=== PATIENT | female | born 1975 | race Caucasian/White ===

== ENCOUNTER 2016-06-02 08:31 | Emergency (ER) | payer BC ==
[2016-06-02 08:47] VITALS: BP 108/77
--- NOTE | 2016-06-02 09:19 | UC ---
Carroll Lou Adam, scribed for Pascual Cha MD on 06/02/16 at 0858 . Skin Complaint HPI - HPI Summary HPI Summary: Pt is a 40 year old female presenting with a rash and apparent allergic rxn. She states that the rash developed on her chest 2 nights ago. Since then it has spread down to her abdomen and lower extremities. She reports discomfort and some itchiness associated with the rash. She also presents with facial swelling and redness. She states that Benadryl has been alleviating the symptoms. She denies fever, difficulty swallowing, and tongue/lip swelling. She denies eating anything unusual or using any new products. Pt states that her mother has a Hx of severe allergic reactions with anaphylaxis. Surgical Hx of appy. No other PMHx. No tobacco/alcohol use. - History of Current Complaint Chief Complaint: UCRash Time Seen by Provider: 06/02/16 08:48 Stated Complaint: RASH COMPLAINT Hx Obtained From: Patient Hx Last Menstrual Period: 05/22/16 Onset/Duration: Gradual Onset, Lasting Days, Still Present Timing: Constant Onset Severity: Mild Current Severity: Moderate Location: Generalized - Face, chest, abdomen, legs Character: Hives, Redness Aggravating: Nothing Alleviating: Antihistamines - Benadryl Associated Signs & Symptoms: Positive: Rash - Allergy/Home Medications Allergies/Adverse Reactions: Allergies Allergy/AdvReac Type Severity Reaction Status Date / Time Magnesium Allergy Hives Verified 01/26/16 00:19 Review of Systems Constitutional: Negative Skin: Rash - Chest, abdomen, legs ENT: Negative Musculoskeletal: Edema - Face All Other Systems Reviewed And Are Negative: Yes PMH/Surg Hx/FS Hx/Imm Hx Endocrine History Of: Denies: Diabetes Cardiovascular History Of: Denies: Hypertension GI/ History Of: Denies: Renal Disease - Surgical History Surgical History: Yes - Appendectomy January 26 2016 Surgery Procedure, Year, and Place: 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 appy jan 2016 - Family History Known Family History: Positive: Hypertension - father, Diabetes, Other - Epilepsy (sister) Negative: Cardiac Disease - Social History Occupation: Employed Full-time Lives: With Family - Alcohol Use: None Substance Use Type: None Smoking Status (MU): Never Smoked Tobacco - Immunization History Most Recent Influenza Vaccination: 2014 Most Recent Tetanus Shot: 2007 Most Recent Pneumonia Vaccination: n/a Physical Exam Triage Information Reviewed: Yes Vital Signs: Initial Vital Signs Temp 98.0 F 06/02/16 08:39 Pulse 90 06/02/16 08:39 Resp 16 06/02/16 08:39 BP 108/77 06/02/16 08:39 Pulse Ox 98 06/02/16 08:39 Course/Dx - Course Course Of Treatment: Pt is a 40 year old female presenting with a rash and apparent allergic rxn. She states that the rash developed on her chest 2 nights ago. Since then it has spread down to her abdomen and lower extremities. She reports discomfort and some itchiness associated with the rash. She also presents with facial swelling and redness. She states that Benadryl has been alleviating the symptoms. She denies fever, difficulty swallowing, and tongue/ lip swelling. She denies eating anything unusual or using any new products. Patient seems to have an allergic reaction to an unknown etiology. Patient denies a lip swelling, tongue swelling or feeling like the throat is going to close. She will given a prescription for Prednisone, Benadryl and Pepcid. At this time we will control the symptoms. She will be refer to [facility] and PMD. She was instructed to return to the or go to the ED if she develops any of the above symptoms. She understands and agrees. She is hemodynamically stable. She is alert and oriented. - Differential Diagnoses - Skin Complaint Differential Diagnoses: Allergic Reaction, Cellulitis, Urticaria - Diagnoses Provider Diagnoses: Allergic reaction Discharge - Discharge Plan Condition: Stable Disposition: HOME Prescriptions: Epinephrine [Epipen 2-Quentin] 0.3 mg IM ONCE #1 inj Famotidine TAB* [Pepcid TAB*] 20 mg PO BID #10 tab diPHENhydraMINE PO* [Benadryl PO*] 25 mg PO TID PRN #30 cap PRN Reason: Allergy Symptoms predniSONE TAB* [Deltasone TAB*] 40 mg PO DAILY #10 tab Patient Education Materials: General Allergic Reaction (ED) Referrals: Jamey Sutton MD [Medical Doctor] - Additional Instructions: Follow up with Dr. Sutton ([facility]). The documentation as recorded by the Carroll garcia Adam accurately reflects the service I personally performed and the decisions made by Semaj reed Walter, MD.
== END 2016-06-02 09:19 | disposition home or self-care (01) ==
LOC: UCEAST 08:31
DX: T78.40XA Allergy, unspecified, initial encounter (principal); X58.XXXA Exposure to other specified factors, initial encounter
CPT/HCPCS: 99212; G0463

== ENCOUNTER 2016-06-08 09:07 | Emergency (ER) | payer BC ==
[2016-06-08 09:19] VITALS: BP 103/78
[2016-06-08] MEDS ORDERED: Ondansetron ODT TAB* 4 MG PO ONE (10:15)
[2016-06-08] MEDS ORDERED: Famotidine TAB* 20 MG PO ONE (10:15)
--- NOTE | 2016-06-08 10:21 | UC ---
UC General HPI - HPI Summary HPI Summary: Patient has had 2 days of Nausea and diarrhea, chills and hot. She is tolerating PO fluids and food. - History of Current Complaint Chief Complaint: UCGI Stated Complaint: ABDOMINAL COMPLAINT Time Seen by Provider: 06/08/16 10:14 Hx Obtained From: Patient Onset/Duration: Sudden Onset, Lasting Days Onset Severity: Mild Current Severity: Moderate Pain Intensity: 6 Associated Signs & Symptoms: Positive: Diarrhea, Nausea - Allergy/Home Medications Allergies/Adverse Reactions: Allergies Allergy/AdvReac Type Severity Reaction Status Date / Time Magnesium Allergy Hives Verified 01/26/16 00:19 PMH/Surg Hx/FS Hx/Imm Hx Previously Healthy: Yes Endocrine History Of: Denies: Diabetes Cardiovascular History Of: Denies: Hypertension GI/ History Of: Denies: Renal Disease - Surgical History Surgical History: Yes Surgery Procedure, Year, and Place: 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 appy jan 2016 - Family History Known Family History: Positive: Hypertension - father, Diabetes, Other - Epilepsy (sister) Negative: Cardiac Disease - Social History Alcohol Use: None Substance Use Type: None Smoking Status (MU): Never Smoked Tobacco - Immunization History Most Recent Influenza Vaccination: 2014 Most Recent Tetanus Shot: 2007 Most Recent Pneumonia Vaccination: n/a Review of Systems Constitutional: Fever, Chills, Fatigue Skin: Negative Eyes: Negative ENT: Negative Respiratory: Negative Cardiovascular: Negative Gastrointestinal: Abdominal Pain - feels crampy and diffuse "rolling", Diarrhea Genitourinary: Negative Motor: Negative Neurovascular: Negative Musculoskeletal: Negative Neurological: Negative Psychological: Negative All Other Systems Reviewed And Are Negative: Yes Physical Exam Triage Information Reviewed: Yes Appearance: No Pain Distress, Ill-Appearing Vital Signs: Initial Vital Signs Temp 96.8 F 06/08/16 09:13 Pulse 106 06/08/16 09:13 Resp 18 06/08/16 09:13 BP 103/78 06/08/16 09:13 Pulse Ox 96 06/08/16 09:13 Vital Signs Reviewed: Yes Eye Exam: Normal ENT Exam: Normal ENT: Positive: Hearing grossly normal, Pharyngeal erythema, TMs normal Dental Exam: Normal Neck exam: Normal Neck: Positive: Supple, Nontender, No Lymphadenopathy Respiratory Exam: Normal Respiratory: Positive: Chest non-tender, Lungs clear, Normal breath sounds Cardiovascular Exam: Normal Cardiovascular: Positive: RRR, No Murmur, Pulses Normal Abdominal Exam: Normal Abdomen Description: Positive: Nontender, No Organomegaly, Soft Bowel Sounds: Positive: Present Musculoskeletal Exam: Normal Musculoskeletal: Positive: Strength Intact, ROM Intact, No Edema Neurological Exam: Normal Neurological: Positive: Alert, Muscle Tone Normal Psychological Exam: Normal Skin Exam: Normal Skin: Positive: rashes Course/Dx - Course Course Of Treatment: hx obtained, exam performed, flu swab obtained. meds given. - Differential Dx - Multi-Symptom Provider Diagnoses: nausea. vomiting. myalgia Discharge - Discharge Plan Condition: Stable Disposition: HOME Patient Education Materials: Acute Nausea and Vomiting (ED) Additional Instructions: Your flu was negative. I recommend getting plenty of rest and keeping your diet bland. COntinue with increased fluid intake as tolerated. I have prescribed zofran and famotidine to help with the nausea.
== END 2016-06-08 10:42 | disposition home or self-care (01) ==
LOC: UCEAST 09:07
DX: R11.2 Nausea with vomiting, unspecified (principal); R19.7 Diarrhea, unspecified
CPT/HCPCS: 87502; 99212; A9270-GY; G0463

== ENCOUNTER 2016-10-13 19:22 | Emergency (ER) | payer BC ==
[2016-10-13 20:38] VITALS: BP 127/72
[2016-10-13] MEDS ORDERED: Cephalexin CAP* 500 MG PO ONE ×2 (21:40→21:45)
--- NOTE | 2016-10-13 22:05 | RAD ---
INDICATION: Left foot injury. TECHNIQUE: 3 views of the left foot were obtained. FINDINGS: There is soft tissue swelling present dorsal to the metatarsal bones and adjacent to the medial first metatarsal bone. No fracture is seen. Joint spaces appear maintained. No erosive, hypertrophic changes or calcifications are seen. IMPRESSION: SOFT TISSUE SWELLING.
--- NOTE | 2016-10-15 12:35 | UC ---
Jonnathan Lou Benjamin, scribed for Arline Hodges MD on 10/13/16 at 2140 . Lower Extremity/Ankle HPI - HPI Summary HPI Summary: 40yo female presents with a red swollen lump on top of the left foot. Lump is painful to touch. Pt first noticed the lump last Tuesday (10/09/16), which pt thought was from prolonged walking. However, lump has been getting bigger and more painful throughout the week so pt came into have it checked out. Pt had hx of cellulitis on her elbow before and states that her current lump feels similar. No other rashes anywhere else. Denies any recent tick bites. No hx of gout or arthritis or autoimmune disorder. - History of Current Complaint Chief Complaint: UCLowerExtremity Stated Complaint: SORE ON FOOT Time Seen by Provider: 10/13/16 21:27 Hx Obtained From: Patient Hx Last Menstrual Period: 05/22/16 ?: No Onset/Duration: Gradual Onset, Lasting Days - since last Tuesday (10/09/16) Severity Initially: Mild Severity Currently: Moderate Pain Intensity: 2 Pain Scale Used: 0-10 Numeric Aggravating Factor(s): Standing, Other - palpation Alleviating Factor(s): Nothing Able to Bear Weight: Yes - Risk Factors Gout Risk Factors: Negative DVT Risk Factors: Negative Septic Arthritis Risk Factor: Negative - Allergies/Home Medications Allergies/Adverse Reactions: Allergies Allergy/AdvReac Type Severity Reaction Status Date / Time Magnesium Allergy Hives Verified 10/13/16 20:37 PMH/Surg Hx/FS Hx/Imm Hx Previously Healthy: No - cellulitis on elbow - Surgical History Surgical History: Yes Surgery Procedure, Year, and Place: 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 appy jan 2016 - Family History Known Family History: Positive: Hypertension - father, Diabetes, Other - Epilepsy (sister) Negative: Cardiac Disease - Social History Lives: With Family Alcohol Use: None Substance Use Type: None Smoking Status (MU): Never Smoked Tobacco - Immunization History Most Recent Influenza Vaccination: 2014 Most Recent Tetanus Shot: 2007 Most Recent Pneumonia Vaccination: n/a Review of Systems Constitutional: Negative Skin: Other - red, swollen lump on top of the left foot that is painful to touch Eyes: Negative ENT: Negative Respiratory: Negative Cardiovascular: Negative Gastrointestinal: Negative Genitourinary: Negative Motor: Negative Neurovascular: Negative Musculoskeletal: Negative Neurological: Negative Psychological: Negative All Other Systems Reviewed And Are Negative: Yes Physical Exam Triage Information Reviewed: Yes Appearance: Well-Appearing, Well-Nourished, Pain Distress - mild Vital Signs: Initial Vital Signs Temp 98.7 F 10/13/16 20:37 Pulse 81 10/13/16 20:37 Resp 16 10/13/16 20:37 BP 127/72 10/13/16 20:37 Pulse Ox 100 10/13/16 20:37 Vital Signs Reviewed: Yes Eyes: Positive: Conjunctiva Clear ENT: Positive: Hearing grossly normal. Negative: Muffled/hoarse voice Neck: Positive: Supple, Nontender, No Lymphadenopathy Respiratory: Positive: Lungs clear, Normal breath sounds, No respiratory distress Cardiovascular: Positive: RRR, No Murmur, Pulses Normal Abdomen Description: Positive: Nontender, No Organomegaly, Soft. Negative: Distended, Guarding, McBurney's Point Tenderness, Peritoneal Signs Bowel Sounds: Positive: Present Musculoskeletal: Positive: Strength Intact, ROM Intact Neurological: Positive: Alert, Muscle Tone Normal Psychological: Positive: Age Appropriate Behavior Skin: Positive: Other - 3cm raised, red, and exquisitely tender area on left foot over the mid-first metatarsal. First MTP and great toe not red. No red streak. Full ROM. Lower Extremity Course/Dx - Course Course Of Treatment: Allergies noted. 40yo female presents with a red, swollen lump on top of the left foot that has been progressively worsening since . Pt denies any tick bites or rashes anywhere else. PMHx includes cellulitis on elbow before but otherwise no significant Hx. Pt's left foot has an inflamed area. Pt will be discharged with instructions for gout and cellulitis and she will be treated with Abx and NSAIDs, which will also cover possible cellulitis and gout. She is also advised to keep Lyme disease in mind and if it does not resolve to seek definite medical attention and continue antibiotics. - Differential Dx/Diagnosis Differential Diagnosis/HQI/PQRI: Cellulitis, Gout, Sprain, Strain, Other - Lyme disease Provider Diagnoses: Cellutis vs. Gout Discharge - Discharge Plan Condition: Stable Disposition: HOME Prescriptions: Cephalexin CAP* [Keflex 500 CAP*] 500 mg PO QID #40 cap Indomethacin CAP* [Indocin CAP*] 50 mg PO TID #21 cap Patient Education Materials: Cellulitis (ED), Gout (ED) Referrals: [facility] [place] [facility]FERR[facility] [Outside] - 2 Days Non Staff,Doctor [Primary Care Provider] - Additional Instructions: We gave a copy of your xray report to you. It shows swelling, but no fracture, no other diagnosis. We are treating for cellulitis and gout. And we have advised you to keep in mind that this could be Lyme disease. We are treating with cephalexin. Your first dose was at 10:00pm tonight. Finish all of the antibiotic. Have definite follow up if this does not improve or recurs. We also advise that you call to get established with a primary care provider. RETURN TO URGENT CARE FOR ANY NEW OR WORSENING SYMPTOMS The documentation as recorded by the Jonnathan garcia Benjamin accurately reflects the service I personally performed and the decisions made by me, Arline Hodges MD.
== END 2016-10-13 22:37 | disposition home or self-care (01) ==
LOC: UCEAST 19:22
DX: R22.42 Localized swelling, mass and lump, left lower limb (principal)
CPT/HCPCS: 99213; A9270-GY; G0463

== ENCOUNTER 2017-01-19 10:22 | Emergency (ER) | payer BC ==
[2017-01-19 12:31] VITALS: BP 110/76
--- NOTE | 2017-01-19 13:58 | RAD ---
INDICATION: Cough and fever. COMPARISON: There are no prior studies available for comparison. TECHNIQUE: Dual-energy PA and lateral views of the chest were obtained. FINDINGS: The heart is within normal limits in size. Mediastinal and hilar contours appear within normal limits. There is a small infiltrate at the right lung base. The lungs are otherwise clear. No pleural effusion is seen. There is a pectus excavatum deformity. There appears to be interposition of the hepatic flexure between the liver and right hemidiaphragm. IMPRESSION: SMALL RIGHT BASILAR INFILTRATE.
--- NOTE | 2017-01-19 13:58 | UC ---
UC General HPI - HPI Summary HPI Summary: Patient presents with complaints of chills, fatigue and associated cough. She states that the symptoms began three days ago, and became much worse yesterday afternoon. She denies any sputum production, but reports general malaise. She denies abdominal pain, nausea, vomiting associated with her symptoms today. - History of Current Complaint Chief Complaint: UCGeneralIllness Stated Complaint: FEVER COUGH HEADACHE Time Seen by Provider: 01/19/17 13:18 Hx Obtained From: Patient Hx Last Menstrual Period: 12/15/16 Onset/Duration: Gradual Onset, Lasting Days Timing: Constant Onset Severity: Mild Current Severity: Moderate - Allergy/Home Medications Allergies/Adverse Reactions: Allergies Allergy/AdvReac Type Severity Reaction Status Date / Time Magnesium Allergy Hives Verified 01/19/17 12:27 PMH/Surg Hx/FS Hx/Imm Hx Previously Healthy: Yes Other Cancer History: breast cancer - Surgical History Surgical History: Yes Surgery Procedure, Year, and Place: 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 appy jan 2016 - Family History Known Family History: Positive: Hypertension - father, Diabetes, Other - Epilepsy (sister) Negative: Cardiac Disease - Social History Occupation: Employed Full-time Lives: Alone Alcohol Use: None Substance Use Type: None Smoking Status (MU): Never Smoked Tobacco - Immunization History Most Recent Influenza Vaccination: 2014 Most Recent Tetanus Shot: 2007 Most Recent Pneumonia Vaccination: n/a Review of Systems Constitutional: Fever, Fatigue Skin: Negative Eyes: Negative ENT: Negative Respiratory: Cough Cardiovascular: Negative Gastrointestinal: Negative Genitourinary: Negative All Other Systems Reviewed And Are Negative: Yes Physical Exam Triage Information Reviewed: Yes Appearance: Ill-Appearing Vital Signs: Initial Vital Signs Temp 98.5 F 01/19/17 12:27 Pulse 105 01/19/17 12:27 Resp 16 01/19/17 12:27 BP 110/76 01/19/17 12:27 Pulse Ox 100 01/19/17 12:27 Vital Signs Reviewed: Yes Eye Exam: Normal ENT Exam: Normal Neck exam: Normal Respiratory: Positive: Other: Cardiovascular Exam: Normal Abdominal Exam: Normal Skin Exam: Normal Course/Dx - Course Course Of Treatment: Patient presents with three day onset fever, cough with generalized fatiuge and malaise. Influenza was negative. Chest xray revealed RLL infiltrate. Patient treated with doxycycline 100 mg by mouth twice daily x 10 days. I discussed with the patient if her symtpoms do not improve in 2 days to follw up and be re-evalauted. - Differential Dx - Multi-Symptom Differential Diagnoses: Other - Pneumonia Provider Diagnoses: Pneumonia Discharge - Discharge Plan Condition: Stable Disposition: HOME Prescriptions: Doxycycline Hyclate [Doxycycline Hyclate Dr] 100 mg PO BID #20 tab Fluconazole 100 MG TAB* [Diflucan 100 MG TAB*] 100 mg PO DAILY #1 tab Patient Education Materials: Pneumonia (ED) Forms: *Work Release Referrals: Hayden Fuentes DO [Primary Care Provider] - Additional Instructions: If your symptoms do not improve in 48 hours you will need to be rechecked by you PCP or come back to the clinic.
== END 2017-01-19 14:09 | disposition home or self-care (01) ==
LOC: UCEAST 10:22
DX: J18.9 Pneumonia, unspecified organism (principal); Z80.3 Family history of malignant neoplasm of breast
CPT/HCPCS: 71020; 87502; 99212; G0463

== ENCOUNTER 2017-07-04 08:31 | Inpatient (IN) | payer BC ==
[2017-07-04] MEDS ORDERED: Morphine INJ* 4 MG/ML 1 ML SYRINGE (NEW SYRINGE VERSION) IV ONE (09:44)
[2017-07-04] MEDS ORDERED: Ondansetron INJ* 2 MG/ML VIAL IV ONE (09:44)
[2017-07-04] MEDS ORDERED: NS 0.9% 1000 ML* 1,000 ML IV ONE (09:44)
[2017-07-04 10:21] LABS: ABS Basophils 0 10^3/ul (0-0.2); ABS Eosinophils 0 10^3/ul (0-0.6); ABS Lymphocytes 0.8 10^3/ul (1.0-4.8); ABS Monocytes 0.9 10^3/ul (0-0.8); ABS Neutrophils 8.9 10^3/ul (1.5-7.7); ABS Nucleated RBC 0 10^3/ul; Eosinophil % 0.1 % (0-6); Hematocrit 42 % (35-47); Hemoglobin 14.3 g/dl (12.0-16.0); Lymphocyte % 7.5 % (25-47); Mean Corpuscular HGB Conc 34 g/dl (31-36); Mean Corpuscular Hemoglobin 28 pg (27-31); Mean Corpuscular Volume 83 fL (80-97); Mean Platelet Volume 9 um3 (7.4-10.4); Nucleated Red Blood Cells % 0.2; Platelet Count 266 10^3/ul (150-450); Red Blood Count 5.06 10^6/ul (4.0-5.4); Red Cell Distribution Width 13 % (10.5-15); White Blood Count 10.7 10^3/ul (3.5-10.8)
[2017-07-04 10:38] LABS: EGFR Non-African American 83.5 (>60)
[2017-07-04 11:33] LABS: Urine Appearance Clear; Urine Blood Negative (Negative); Urine Color Yellow; Urine Ketones 1+ (Negative); Urine Protein Negative (Negative); Urine Specific Gravity 1.025 (1.010-1.030); Urine Urobilinogen Negative (Negative)
--- NOTE | 2017-07-04 11:43 | RAD ---
INDICATION: Pelvic pain dysmenorrhea x6 months COMPARISON: Pelvic ultrasound March 07, 2017 TECHNIQUE: Real-time transabdominal and transvaginal ultrasound examination of the female pelvis including grayscale and Doppler color flow imaging. FINDINGS: Uterus: The uterus measures 8.2 x 4.3 x 5.4 cm. There is mild heterogeneity of the myometrium especially along the mid-level posterior myometrium in this same area there is an ill-defined area of hypoechogenicity (depicted best on the cine image 38 of 169) measuring 1 cm] represent a uterine fibroid. The endometrial stripe is smooth and uniform measuring 6 mm in thickness. Several subcentimeter anechoic and avascular cyst at the lower uterine segment and cervix are most consistent with benign nabothian cysts. Ovaries: The right and left ovary measure 3.4 x 2.4 x 2.4 cm and 2.6 x 1.5 x 2.2 cm, respectively. Normal arterial and venous waveforms are identified. Appearance is within normal limits for the patient's age. There is no free fluid in the cul-de-sac. IMPRESSION: There is vague heterogeneity of the myometrium particularly at the posterior mid level myometrium. This could be an ill-defined uterine fibroid or possibly adenomyosis. If this correlates to the patient's clinical presentation, more certain characterization can be acquired with contrast-enhanced MRI of the pelvis on a nonemergent basis. Otherwise the pelvic ultrasound is normal and age-appropriate.
[2017-07-04] MEDS ORDERED: Iohexol 300* (CONTRAST) 10 ML SDV IV ONE (12:06)
--- NOTE | 2017-07-04 12:18 | ED ---
Abdominal Pain/Female - HPI Summary HPI Summary: Pt here w/ ab pain x past week. Feels this most in lower central pelvic/abdomen region. Has been experiencing pain similar to this before each period over the past few months. Today is worse than it's ever been. She's a couple of days out from menstruating today. Moved here from [place] in November 2015 - had annual well woman exam prior to leaving w/ normal pap. She also had a 1 x "Rt ovary pain" and u/s per pt was normal (performed through [facility]). She admits mom had hysterectomy in 's d/t abnormal cells and endometriosis. Pt denies abnormal vaginal bleeding however admits periods have gotten heavier over the past few months. She did see her PCP for similar lower pelvic symptoms which started in March. She thought she had a urinary tract infection and a UA was obtained. This revealed minimal bacteria findings which were initially thought to be contamination however given her symptoms, provider agreed to prescribe a course of ciprofloxacin. Patient admits she was only able to take 4 days of this as she went on vacation and forgot the rest of her prescription. She was feeling better however symptoms returned the following month again just before her period. She called her PCP again who wrote for another antibiotic for possible UTI. Patient reports this was a 3 day course only. She started to feel better again until symptoms started this past week ( believes she tool cipro again). No juan h/o constipation or bowel issues. No h/ o UTI/stones otherwise. Had some chills last night and 1 time episode of nausea w/ vomiting and diarrhea while at work yesterday - went home and slept after - felt wiped out. Pertinent hx, had appendectomy in 2015 and has had residual tenderness around umbilicus since. Last ate at 18:30 PM last night and drank some water prior to arrival. 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 - Hx Last Menstrual Period: 12/15/16 Pain Intensity: 9 Allergies/Adverse Reactions: Allergies Allergy/AdvReac Type Severity Reaction Status Date / Time magnesium Allergy Hives Verified 07/04/17 08:40 Home Medications: Home Medications NK [No Home Medications Reported] 07/04/17 [History Confirmed 07/04/17] PMH/Surg Hx/FS Hx/Imm Hx Previously Healthy: Yes Endocrine/Hematology History: Denies: Hx Anticoagulant Therapy, Hx Blood Disorders, Hx Diabetes, Hx Thyroid Disease, Hx Anemia, Autoimmune Disease Cardiovascular History: Denies: Hx Hypertension GI History: Reports: Other GI Disorders - appendicitis in 2015 Denies: Hx Crohn's Disease, Hx Diverticulosis, Hx Gall Bladder Disease, Hx Gastroesophageal Reflux Disease, Hx Gastrointestinal Bleed, Hx Hiatal Hernia, Hx Irritable Bowel, Hx Obstructive Bowel, Hx Ulcer History: Denies: Hx Renal Disease Musculoskeletal History: Comment Only: Hx Scoliosis - pt said her spine "is crooked" Sensory History: Reports: Hx Contacts or Glasses Denies: Hx Hearing Aid Opthamlomology History: Reports: Hx Contacts or Glasses - Cancer History Cancer Type, Location and Year: 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 appy jan 2016 Hx Anesthesia Reactions: No Infectious Disease History: No Infectious Disease History: Reports: Hx Shingles - 3yrs ago Denies: History Other Infectious Disease, Traveled Outside the [place] in Last 30 Days - Family History Known Family History: Positive: Hypertension - father, Diabetes, Other - Epilepsy (sister) Negative: Cardiac Disease - Social History Occupation: Employed Full-time Lives: With Family Alcohol Use: None Hx Substance Use: No Substance Use Type: Reports: None Hx Tobacco Use: No Smoking Status (MU): Never Smoked Tobacco Review of Systems Positive: Chills, Fatigue Eyes: Negative ENT: Negative Cardiovascular: Negative Respiratory: Negative Positive: Abdominal Pain, Vomiting, Diarrhea, Nausea Positive: see HPI Musculoskeletal: Negative Skin: Negative Neurological: Negative Psychological: Normal All Other Systems Reviewed And Are Negative: Yes Physical Exam Triage Information Reviewed: Yes Vital Signs On Initial Exam: Initial Vitals Temp Pulse Resp BP Pulse Ox 98.7 F 126 16 136/73 99 07/04/17 08:37 07/04/17 08:37 07/04/17 08:37 07/04/17 08:37 07/04/17 08:37 Vital Signs Reviewed: Yes Appearance: Positive: Well-Appearing, Well-Nourished, Pain Distress Skin: Positive: Warm, Skin Color Reflects Adequate Perfusion, Dry Head/Face: Positive: Normal Head/Face Inspection Eyes: Positive: Normal, EOMI, Conjunctiva Clear - anicteric sclera ENT: Positive: Normal ENT inspection, Hearing grossly normal, Pharynx normal Neck: Positive: Supple, Nontender Respiratory/Lung Sounds: Positive: Clear to Auscultation, Breath Sounds Present. Negative: Rales, Rhonchi, Wheezes Cardiovascular: Positive: Normal, RRR, S1, S2 Abdomen Description: Positive: Nontender, Soft, Guarding, Other: - tender over entire ab - worse in lower regions and tender w/ light touch over central prepupital region - no rebounding. Negative: CVA Tenderness (R), CVA Tenderness (L) Bowel Sounds: Positive: Present Pelvic Exam: Positive: external exam normal, speculum exam normal, no cerv. motion tender, discharge - milky white, other - midline tenderness. Negative: active bleeding, cervicitis, lesions Musculoskeletal: Positive: Normal, Strength/ROM Intact Neurological: Positive: Normal, Sensory/Motor Intact, Alert, Oriented to Person Place, Time, CN Intact II-III Psychiatric: Positive: Normal Diagnostics - Vital Signs Vital Signs Temp Pulse Resp BP Pulse Ox 07/04/17 11:30 89 103/77 100 07/04/17 11:29 85 99 07/04/17 11:27 103/67 07/04/17 10:52 92 99 07/04/17 10:16 16 07/04/17 10:00 86 95 07/04/17 09:30 95 106/75 96 07/04/17 09:00 87 101/68 94 07/04/17 08:55 89 94 07/04/17 08:54 100/69 07/04/17 08:37 98.7 F 126 16 136/73 99 - Laboratory Lab Results: Lab Results 07/04/17 07/04/17 07/04/17 Range/Units 10:02 10:02 10:02 WBC 10.7 (3.5-10.8) 10^3/ul RBC 5.06 (4.0-5.4) 10^6/ul Hgb 14.3 (12.0-16.0) g/dl Hct 42 (35-47) % MCV 83 (80-97) fL MCH 28 (27-31) pg MCHC 34 (31-36) g/dl RDW 13 (10.5-15) % Plt Count 266 (150-450) 10^3/ul MPV 9 (7.4-10.4) um3 Neut % (Auto) 84.0 H (38-83) % Lymph % (Auto) 7.5 L (25-47) % [place] % (Auto) 8.0 H (0-7) % Eos % (Auto) 0.1 (0-6) % Baso % (Auto) 0.4 (0-2) % Absolute Neuts (auto) 8.9 H (1.5-7.7) 10^3/ul Absolute Lymphs (auto) 0.8 L (1.0-4.8) 10^3/ul Absolute Monos (auto) 0.9 H (0-0.8) 10^3/ul Absolute Eos (auto) 0 (0-0.6) 10^3/ul Absolute Basos (auto) 0 (0-0.2) 10^3/ul Absolute Nucleated RBC 0 10^3/ul Nucleated RBC % 0.2 Sodium 134 (133-145) mmol/L Potassium 4.1 (3.5-5.0) mmol/L Chloride 103 (101-111) mmol/L Carbon Dioxide 26 (22-32) mmol/L Anion Gap 5 (2-11) mmol/L BUN 10 (6-24) mg/dL Creatinine 0.76 (0.51-0.95) mg/dL Est GFR ( Amer) 107.3 (>60) Est GFR (Non-Af Amer) 83.5 (>60) BUN/Creatinine Ratio 13.2 (8-20) Glucose 121 H (70-100) mg/dL Lactic Acid 0.8 (0.5-2.0) mmol/L Calcium 8.9 (8.6-10.3) mg/dL Magnesium 2.0 (1.9-2.7) mg/dL Total Bilirubin 0.70 (0.2-1.0) mg/dL AST 14 (13-39) U/L ALT 13 (7-52) U/L Alkaline Phosphatase 84 (34-104) U/L C-Reactive Protein 72.02 H (< 5.00) mg/L Total Protein 6.9 (6.4-8.9) g/dL Albumin 3.9 (3.2-5.2) g/dL Globulin 3.0 (2-4) g/dL Albumin/Globulin Ratio 1.3 (1-3) Lipase < 10 L (11.0-82.0) U/L Beta HCG, Quant < 0.60 mIU/mL Urine Color Urine Appearance Urine pH (5-9) Ur Specific [place] (1.010-1.030) Urine Protein (Negative) Urine Ketones (Negative) Urine Blood (Negative) Urine Nitrate (Negative) Urine Bilirubin (Negative) Urine Urobilinogen (Negative) Ur Leukocyte Esterase (Negative) Urine Glucose (Negative) 07/04/17 Range/Units 10:56 WBC (3.5-10.8) 10^3/ul RBC (4.0-5.4) 10^6/ul Hgb (12.0-16.0) g/dl Hct (35-47) % MCV (80-97) fL MCH (27-31) pg MCHC (31-36) g/dl RDW (10.5-15) % Plt Count (150-450) 10^3/ul MPV (7.4-10.4) um3 Neut % (Auto) (38-83) % Lymph % (Auto) (25-47) % [place] % (Auto) (0-7) % Eos % (Auto) (0-6) % Baso % (Auto) (0-2) % Absolute Neuts (auto) (1.5-7.7) 10^3/ul Absolute Lymphs (auto) (1.0-4.8) 10^3/ul Absolute Monos (auto) (0-0.8) 10^3/ul Absolute Eos (auto) (0-0.6) 10^3/ul Absolute Basos (auto) (0-0.2) 10^3/ul Absolute Nucleated RBC 10^3/ul Nucleated RBC % Sodium (133-145) mmol/L Potassium (3.5-5.0) mmol/L Chloride (101-111) mmol/L Carbon Dioxide (22-32) mmol/L Anion Gap (2-11) mmol/L BUN (6-24) mg/dL Creatinine (0.51-0.95) mg/dL Est GFR ( Amer) (>60) Est GFR (Non-Af Amer) (>60) BUN/Creatinine Ratio (8-20) Glucose (70-100) mg/dL Lactic Acid (0.5-2.0) mmol/L Calcium (8.6-10.3) mg/dL Magnesium (1.9-2.7) mg/dL Total Bilirubin (0.2-1.0) mg/dL AST (13-39) U/L ALT (7-52) U/L Alkaline Phosphatase (34-104) U/L C-Reactive Protein (< 5.00) mg/L Total Protein (6.4-8.9) g/dL Albumin (3.2-5.2) g/dL Globulin (2-4) g/dL Albumin/Globulin Ratio (1-3) Lipase (11.0-82.0) U/L Beta HCG, Quant mIU/mL Urine Color Yellow Urine Appearance Clear Urine pH 6.0 (5-9) Ur Specific [place] 1.025 (1.010-1.030) Urine Protein Negative (Negative) Urine Ketones 1+ H (Negative) Urine Blood Negative (Negative) Urine Nitrate Negative (Negative) Urine Bilirubin Negative (Negative) Urine Urobilinogen Negative (Negative) Ur Leukocyte Esterase Negative (Negative) Urine Glucose Negative (Negative) Result Diagrams: 07/04/17 10:02 07/04/17 10:02 Lab Statement: Any lab studies that have been ordered have been reviewed, and results considered in the medical decision making process. Re-Evaluation - Re-Evaluation First Eval Change: Unchanged - pain same s/p morphine Second Eval Change: Improved - s/p dilaudid Abdominal Pain Fem Course/Dx - Course Course Of Treatment: Pt presents w/ ab pain x 8 days but on/off past few months. Initially concerned for UTI sx outpt and tx'd w/ a couple of short courses of cipro w/ intermittent relief each time. Was also discussed that this appeared to be cyclical around menstruation and periods have been heavier. Labs , TVUS and CT ordered. TVUS reveals "vague heterogeneity of the myometrium particularly at the posterior mid level myometrium. This could be an ill- defined uterine fibroid or possibly adenomyosis. If this correlates to the patient's critical presentation, more certain characterization can be required with contrast enhanced MRI of the pelvis on a nonemergent basis. Otherwise pelvic ultrasound is normal and age appropriate.". CT abdomen and pelvis with contrast reveals "sigmoid region enteric inflammatory change with organizing diverticular abscess." This abscess is measured at 4 cm. Spoke with surgical PA. He will consult with his attending to decide if patient is a surgical admission/observation versus hospital admission/observation. IV antibiotics were started. Patient's pain is controlled at this time. Lengthy conversation with pt and about all findings and appropriate follow-up care for abnormal uterine findings. Provided with TVUS report and advised obtaining a copy of CD disc prior to leaving the hospital for comparison of previous ultrasound obtained by primary care doctor through [facility]. Explained patient may benefit from MRI as mentioned by radiologist in report. UPDATE: Gen surg team will consult if pt is admitted. Hospitalist, Dr. Guerrier, aware. 2nd lactic is WNL. - Diagnoses Provider Diagnoses: Colonic diverticular abscess, Abnormal ultrasound of uterus Discharge - Discharge Plan Condition: Stable Disposition: ADMITTED TO [facility]
[2017-07-04] MEDS ORDERED: Metoclopramide IV* 5 MG/ML 2 ML VIAL IV ONE (12:31)
[2017-07-04] MEDS ORDERED: HYDROmorphone INJ* 2 MG/ML CARPUJECT SYRINGE IV SLOW PU ONE (12:41)
--- NOTE | 2017-07-04 12:59 | RAD ---
INDICATION: 41-year-old with diffuse abdominal pain COMPARISON: Pelvic sonogram July 04, 2017 TECHNIQUE: Axial source images were obtained from the hemidiaphragms to the symphysis pubis following administration of oral and intravenous contrast. 93 mL Omnipaque 300 was utilized. Coronal and sagittal reconstructed images were acquired. Lung bases: The lung bases are clear. Liver: The liver is normal in size. There are no masses. There is no ductal dilatation. Gallbladder: There are no calcified gallstones. There is no evidence of wall thickening or pericholecystic fluid. Spleen: The spleen is normal in size. There are no masses. Pancreas: There is no focal pancreatic mass or ductal dilatation. Adrenal glands: There is no evidence of adrenal mass. Kidneys: The kidneys are normal in size and position. There are prompt nephrograms and there is prompt excretion bilaterally. There are no renal parenchymal masses. There is no evidence of nephrolithiasis. Adenopathy: There is no evidence of adenopathy by size criteria. Fluid collections: There is a small amount of free fluid with stranding of the mesentery in the lower pelvis (see "GI tract"). Vessels:There are no significant atherosclerotic changes involving the aorta. There is no focal aneurysm. The iliac vessels are normal in caliber. The IVC appears normal. GI tract: The upper GI tract is unremarkable. There are scattered diverticula of the sigmoid colon. There is inflammatory change in the left lower quadrant. At the level the sigmoid colon is an inflammatory, air-containing, 4 cm mass immediately adjacent to the sigmoid colon. There is significant perienteric inflammatory change with stranding of the mesentery and a small amount of free fluid. The findings are most consistent with an organizing abscess. There is no free intraperitoneal air. There is no obstruction. Pelvic organs: The uterus unremarkable. The right adnexa is normal. There are inflammatory changes extending into the left adnexa Bladder: There are no bladder masses. Abdominal and pelvic soft tissues: The extraperitoneal abdominal and pelvic soft tissues appear normal.. Osseous structures: There are no acute osseous findings. Other: None IMPRESSION: SIGMOID PERIENTERIC INFLAMMATORY CHANGE WITH ORGANIZING DIVERTICULAR ABSCESS. Findings called to ED
[2017-07-04] MEDS ORDERED: Ciprofloxacin 400MG IVPREMIX(* 400 MG/200 ML BAG IVPB ONE (13:34)
[2017-07-04] MEDS ORDERED: metroNIDAZOLE IV 500 MG/100ML* 500 MG/100 ML BAG IVPB ONE (13:36)
[2017-07-04] MEDS ORDERED: PROCHLORPERAZINE INJ 5 MG/ML 2 ML VIAL IV ONE (14:08)
[2017-07-04] MEDS ORDERED: Piperacillin/Tazobac ADVAN(*) 3.375 GM in NS 0.9% 100 ML* 100 ML IVPB ONE (15:30)
[2017-07-04] MEDS ORDERED: NS 0.9% 1000 ML* 1,000 ML IV SCH (15:30)
[2017-07-04] MEDS ORDERED: Morphine INJ* 2 MG/ML 1 ML CARPUJECT IV PRN (15:45)
[2017-07-04] MEDS ORDERED: Zosyn per Pharmacy* NOTE FOLLOW UP SCH (16:00)
--- NOTE | 2017-07-04 18:55 | PN ---
Progress Note - Progress Note Date of Service: 07/04/17 SOAP: Subjective: Patient seen and examined I discussed care with JUANPABLO Day who saw the patient earlier in consultation. CT shows apparent diverticulitis with probable abscess. She is afebrile Exam shows tenderness in the RLQ and suprapubic area with some guarding without peritoneal irritation. She is non-distended. WBC normal I reviewed the CT with Dr. Gatica from IR Plan: Diverticulitis with probable abscess Recommend IV antibiotics for now--Dr. Gatica does not feel that there is significant abscess to attempt percutaneous drainage at this point. Follow clinically and if WBC goes up, exam changes or she does not improve, repeat CT scan I discussed all the above with patient and her .
--- NOTE | 2017-07-04 20:57 | HP ---
CC: Dr. Fuentes; Dr. Floyd * HISTORY AND PHYSICAL: DATE OF ADMISSION: 07/04/17 PRIMARY CARE PROVIDER: Dr. Fuentes. CONSULTING SURGEON: Dr. Floyd. ATTENDING PHYSICIAN WHILE IN THE HOSPITAL: Dr. Sarkis Guerrier * (report dictated by Andrea Ahmadi NP). HISTORY OF PRESENTING ILLNESS: Mrs. Thomas is a 42-year-old female patient. She originally only has a history of hypothyroidism, currently not on any medications now. She has a history of appendicitis, status post appendectomy 2 years ago and also a history of two D and Cs. She comes in to our ER today. She states that a week ago, she was in [facility], she was having frequency and lower abdominal pain. She thought she had a UTI. She went to a pharmacy, she started taking [id number] medicine AZO, helped for the first couple of days. When she got back this week on , she went and saw her primary. He prescribed a 3-day course of Cipro. According to the patient, she took that for 3 days, initially feeling well into the weekend; however, Tuesday night and then today, she started developing more pain. She had some diarrhea. She vomited once. She was not feeling well. The pain was becoming more severe. She had decreased appetite. She had chills last night. She was concerned because she had stopped the antibiotics. She thought may be there was something more serious going on. She came into the ER today. She was ultimately evaluated and found to have what appeared to be diverticulitis with a possibly developing abscess. So, because of these findings, we were asked to evaluate for admission. She denies any chest pain, denies any shortness of breath. She says that the pain is controlled now and that she has a little bit of an appetite, but again definitely, there were findings of diverticulitis, so we were asked to evaluate. PAST MEDICAL HISTORY: Significant for hypothyroidism, currently not taking medication. PAST SURGICAL HISTORY: 1. She has had an appendectomy. 2. She has had D and C x2. 3. 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 HOME MEDICATIONS: Denied. ALLERGIES TO MEDICATIONS: Include MAGNESIUM. FAMILY HISTORY: Her mother had breast cancer. Father has a history of Charcot - Dorothy, diverticulitis, and history of hypertension. SOCIAL HISTORY: The patient is a nonsmoker. Occasionally drinks alcohol. She works at [employer]. Surrogate decision maker is her . REVIEW OF SYSTEMS: There is no documented fever. She did admit to have chills. She denies having any significant weight change. There was no double vision. She denies having any ear discharge. Denied having any rhinorrhea. No sore throat. No thyroid enlargement. Denies having any chest pain. There is no orthopnea. There is no nocturnal dyspnea. She has abdominal pain in the lower quadrant per my HPI. There was one episode of nausea and vomiting. There was no dysuria, but there was frequency. No seizure, no loss of consciousness, no pruritus, and no skin ulcerations. Review of 14 systems completed, all others negative. PHYSICAL EXAMINATION GENERAL: At this time, Mrs. Thomas is a 41-year-old female patient. She is sitting in the ED stretcher. She does not appear to be in any acute distress. VITAL SIGNS: Blood pressure 100/55, pulse 62, respirations 18, O2 sat 95%, temperature 98.7. HEENT: Head, atraumatic, normocephalic. Eyes: EOMs are intact. Sclerae anicteric and not pale. Throat: Oral mucosa appears to be moist. No oropharyngeal erythema. NECK: Supple. LUNGS: Clear to auscultation bilaterally. No wheezes, rales, or rhonchi. HEART: Sounds S1, S2. Regular rate and rhythm. No murmurs, rubs or gallops. ABDOMEN: Soft, it was flat. Tenderness is elicited in the right lower and left lower quadrant. Bowel sounds present. EXTREMITIES: Pulses were 2+ throughout. Moving all 4 extremities with 5/5 strength. NEUROLOGICAL: The patient is awake, alert and oriented x3. Tongue midline. Alteration Tailor were equal. No gross focal deficits. SKIN: Intact. DIAGNOSTIC STUDIES/LAB DATA: WBC of 10.7, RBC of 5.06, hemoglobin of 14.3, hematocrit of 42, platelet count of 266. Sodium 134, potassium 4.1, chloride of 103, bicarb 26, BUN 10, creatinine 0.76, glucose 121, lactic 0.8, calcium 8.9 , mag 2.0, total bilirubin 0.7, AST 14, ALT 15. Alk phos 84, CRP was 72, albumin was 3.9, lipase negative, beta HCG negative. Urine showed 1+ ketones. Abdominal pelvis CT, impression: Sigmoid perienteric inflammatory change with organizing diverticular abscess. There was a 4 cm mass adjacent to the sigmoid colon in the body of the report. The patient had a transvaginal ultrasound obtained today as well, impression: There is vague heterogeneity of the myometrium, particularly at the posterior mid level myometrium. This could be an ill-defined uterine fibroid or possibly adenomyosis. If correlates with the patient's clinical presentation, more certain characterization can be acquired with contrast-enhanced MRI of the pelvis on a nonemergent basis, otherwise pelvic ultrasound normal and age appropriate. Old medical records were reviewed. ASSESSMENT AND PLAN: Mrs. Thomas is a 41-year-old female patient coming into the ER today with complaints of abdominal pain. On evaluation, found to have diverticular abscess with diverticulitis. She will be admitted under inpatient status for: 1. Diverticulitis with diverticular abscess. Surgery will be evaluating the patient. I did have a call out to Dr. Gatica to see if this is something that could be drained via IR technique. I am placing the patient on clear liquid diet and Zosyn, hydrating her, and will follow her closely. I did order p.r.n. pain medications if needed and we will continue to monitor. 2. History of hypothyroidism. Again, this is and self limiting. Follow with the primary. 3. DVT prophylaxis. She will be placed on SCDs. 4. Code status. Full code. 5. Fluids, electrolytes, nutrition. Clear liquid diet has been ordered. TIME SPENT: Time spent on the admission 60 minutes with greater than half the time spent [id number] with the patient obtaining my history and physical, other half time was spent going over the plan of care with the patient and implementing plan of care. I did discuss the plan of care with my attending physician, Dr. Guerrier, he is in agreement. ANDREA AHMADI NP [id number]/[facility] #: [id number] JOSE
[2017-07-04] MEDS: ZOSYN 3.375 GM Q8H per EXTENDED INFUSION IVPB SCH ×2 (20:59)
--- NOTE | 2017-07-04 21:39 | CONS ---
CONSULTATION REPORT: DATE OF CONSULT: 07/04/17 CONSULTED TO: Maykel Floyd MD CHIEF COMPLAINT: Abdominal pain. HISTORY OF PRESENT ILLNESS: Mrs. Thomas is a pleasant 41-year-old female who presented to the emergency room earlier today with complaints of 24-hour history of worsening lower abdominal pain. She reports similar episodes back and forth since February of last year that was usually diagnosed as a urinary tract infection. She describes her pain initially as being intermittent cramps localized to the suprapubic area, but denies any dysuria or back pain. She has been on 2 different courses of antibiotics back in April and May of this year related to her symptoms. She experienced worsening abdominal pain for the past 24 hours with associated nausea and one episode of diarrhea. She reports that her pain has definitely changed since her last episode. She also described some chills, but no fever. Given her ongoing symptoms, she presented to the emergency room and her laboratory workup was essentially unremarkable. However, she had a pelvic ultrasound followed by a CT scan of the abdomen and pelvis that revealed evidence of sigmoid diverticulitis with diverticular abscess. We were asked to see the patient by the emergency room provider for further evaluation. PAST MEDICAL HISTORY: Essentially unremarkable. She denies any history of heart, liver, lung or kidney disease. PAST SURGICAL HISTORY: Significant for appendectomy back in January 2016. CURRENT MEDICATIONS: She takes no regular medicines at home. ALLERGIES: She is allergic to MAGNESIUM, which gives her rash. FAMILY HISTORY: Noncontributory. However, she notes that her father has had multiple episodes of diverticulitis in the past. SOCIAL HISTORY: The patient works at [employer]. She is a nonsmoker who drinks a glass of wine rarely and caffeine intake is minimal. REVIEW OF SYSTEMS: See HPI, otherwise negative. She denies any headache, dizziness, blurred vision or double vision. No chest pain, palpitations, sore throat, cough or shortness of breath. She admits to suprapubic abdominal pain with associated nausea and one episode of diarrhea last night, but denies any bleeding per rectum. She admits to darker colored urine, but denies any dysuria , urinary frequency or back pain. She does admit to shake and chills last night , but denies any fever or recent weight loss. PHYSICAL EXAMINATION: General: She is a pleasant healthy-appearing middle- aged female, in no acute distress or discomfort at the time of admission. Vitals: Most recent set of vitals with a temperature of 98.7, pulse of 65, blood pressure of 87/67, and O2 sat of 95% on room air. HEENT: Head is normocephalic, atraumatic. Sclerae anicteric. PERRLA. EOMs intact. Oropharynx is pink and moist with no exudate. Neck: Supple. Trachea midline. No cervical adenopathy or thyromegaly. Lungs: Clear to auscultation bilaterally. Heart: Regular rate and rhythm. Normal S1 and S2 without rubs, murmurs, or gallops. Back: With normal curvature. No CVA tenderness. Breasts Exam: Deferred at this time. Abdomen: Soft and nondistended. There is moderate suprapubic and left lower quadrant tenderness with slight palpation. There is some guarding and rebound tenderness as well. No tympany, rigidity was noted. No hernias, masses, or hepatosplenomegaly. Moses's sign was negative. Extremities: Without cyanosis, clubbing, or edema. Neurologic: Grossly intact. Rectal Exam: Deferred at this time. DIAGNOSTIC STUDIES/LAB DATA: CBC with white count of 10,700; hemoglobin of 14.3 ; hematocrit of 42; and platelets of 266,000. Comprehensive metabolic panel essentially within normal limits except for C-reactive protein value of 72. Her urine was normal, only 1+ ketones, otherwise within normal limits. ACCESSORY DIAGNOSTIC DATA: The patient had a CT scan of the abdomen and pelvis that revealed perienteric inflammatory changes with organized diverticular abscess. IMPRESSION: A 41-year-old female with signs and symptoms as well as CT scan findings consistent with a sigmoid diverticulitis with diverticular abscess. PLAN: I went on and discussed with the patient the pathophysiology involving her diverticular disease. She will be admitted under hospitalist service with IV antibiotics and n.p.o. diet for now. I discussed with her the options including IV antibiotics at this time. We also discussed the possibility of percutaneous abscess drainage after Dr. Floyd will discuss the scan with the radiologist. We may have to repeat her imaging studies a couple of days from now to determine if any surgical intervention is indicated. However, at this time, she will be hospitalized with IV antibiotics given her episode of diverticulitis with diverticular abscess and we will follow her up accordingly. JUANPABLO SCHNEIDER [id number]/[facility] #: [id number] [facility]OSPITALDavis
[2017-07-05] MEDS: Acetaminophen TAB* 325 MG PO PRN ×2 (00:02→04:17)
[2017-07-05] MEDS ORDERED: NS 0.9% 1000 ML* 1,000 ML IV SCH (00:30)
[2017-07-05] MEDS: ZOSYN 3.375 GM Q8H per EXTENDED INFUSION IVPB SCH ×6 (04:03→20:06)
[2017-07-05] MEDS: NS 0.9% 1000 ML* 1,000 ML IV SCH ×4 (04:30→19:58)
[2017-07-05 05:13] LABS: Hematocrit 33 % (35-47); Hemoglobin 11.2 g/dl (12.0-16.0); Mean Corpuscular HGB Conc 35 g/dl (31-36); Mean Corpuscular Hemoglobin 29 pg (27-31); Mean Corpuscular Volume 83 fL (80-97); Mean Platelet Volume 8 um3 (7.4-10.4); Platelet Count 192 10^3/ul (150-450); Red Blood Count 3.93 10^6/ul (4.0-5.4); Red Cell Distribution Width 13 % (10.5-15); White Blood Count 6.8 10^3/ul (3.5-10.8)
[2017-07-05 05:18] LABS: ABS Basophils 0 10^3/ul (0-0.2); ABS Eosinophils 0 10^3/ul (0-0.6); ABS Lymphocytes 1.1 10^3/ul (1.0-4.8); ABS Monocytes 0.5 10^3/ul (0-0.8); ABS Neutrophils 5.1 10^3/ul (1.5-7.7); ABS Nucleated RBC 0 10^3/ul; Eosinophil % 0.4 % (0-6); Lymphocyte % 16.4 % (25-47); Nucleated Red Blood Cells % 0.1
[2017-07-05 05:29] LABS: EGFR Non-African American 98.2 (>60)
[2017-07-05 07:20] LABS: INR 1.3 (0.77-1.02)
[2017-07-05] MEDS ORDERED: oxyCODONE/Acetamin 5/325 MG* TAB PO PRN (08:13)
[2017-07-05] MEDS: oxyCODONE/Acetamin 5/325 MG* TAB PO PRN ×2 (09:35→15:53)
--- NOTE | 2017-07-05 11:23 | PN ---
Progress Note - Progress Note Date of Service: 07/05/17 SOAP: Subjective: Pain about the same-controlled with analgesia She is passing flatus and had a large BM this morning Ambulating to the bathroom Objective: Temp Pulse Resp BP Pulse Ox 97.7 F 64 16 94/53 96 07/05/17 07:15 07/05/17 07:15 07/05/17 09:35 07/05/17 07:15 07/05/17 07:15 Intake & Output 07/03/17 07/04/17 07/05/17 07/06/17 06:59 06:59 06:59 06:59 Intake Total 2948 1377 Output Total 870 750 Balance 8 627 Weight 155 lb Intake: IV Fluids 2048 957 NS (0.9%) 948 957 IVPB 100 ABX - PIPERACILLIN 100 Oral 900 320 Output: Urine 870 750 Other: Date of Last Bowel 07/03/17 Movement Estimated Stool Amount Medium PEX: Comfortable-awake and alert Abd is soft and non-distended. Bowel sounds are present. She has tenderness in the LLQ with some guarding, no generalized peritoneal signs. Laboratory Results - last 24 hr 07/04/17 07/04/17 07/05/17 10:56 14:25 05:03 WBC 6.8 RBC 3.93 L Hgb 11.2 L Hct 33 L MCV 83 MCH 29 MCHC 35 RDW 13 Plt Count 192 MPV 8 Neut % (Auto) 75.3 Lymph % (Auto) 16.4 L [place] % (Auto) 7.2 H Eos % (Auto) 0.4 Baso % (Auto) 0.7 Absolute Neuts (auto) 5.1 Absolute Lymphs (auto) 1.1 Absolute Monos (auto) 0.5 Absolute Eos (auto) 0 Absolute Basos (auto) 0 Absolute Nucleated RBC 0 Nucleated RBC % 0.1 INR (Anticoag Therapy) Sodium Potassium Chloride Carbon Dioxide Anion Gap BUN Creatinine Est GFR ( Amer) Est GFR (Non-Af Amer) BUN/Creatinine Ratio Glucose Lactic Acid 0.7 Calcium Urine Color Yellow Urine Appearance Clear Urine pH 6.0 Ur Specific [place] 1.025 Urine Protein Negative Urine Ketones 1+ H Urine Blood Negative Urine Nitrate Negative Urine Bilirubin Negative Urine Urobilinogen Negative Ur Leukocyte Esterase Negative Urine Glucose Negative 07/05/17 07/05/17 05:03 07:08 WBC RBC Hgb Hct MCV MCH MCHC RDW Plt Count MPV Neut % (Auto) Lymph % (Auto) [place] % (Auto) Eos % (Auto) Baso % (Auto) Absolute Neuts (auto) Absolute Lymphs (auto) Absolute Monos (auto) Absolute Eos (auto) Absolute Basos (auto) Absolute Nucleated RBC Nucleated RBC % INR (Anticoag Therapy) 1.30 H Sodium 135 Potassium 3.6 Chloride 109 Carbon Dioxide 21 L Anion Gap 5 BUN 5 L Creatinine 0.66 Est GFR ( Amer) 126.3 Est GFR (Non-Af Amer) 98.2 BUN/Creatinine Ratio 7.6 L Glucose 90 Lactic Acid Calcium 7.5 L Urine Color Urine Appearance Urine pH Ur Specific [place] Urine Protein Urine Ketones Urine Blood Urine Nitrate Urine Bilirubin Urine Urobilinogen Ur Leukocyte Esterase Urine Glucose Assessment: Sigmoid diverticulitis with possible abscess- Normal WBC Plan: Continue IV antibiotics and follow If improves clinically she can be discharged on oral antibiotics with outpatient follow up If no improvement or worsening or increase WBC, repeat CT scan. All discussed again with patient.
--- NOTE | 2017-07-05 11:27 | PN ---
Subjective Date of Service: 07/05/17 Interval History: Pt had been hypotensive at night with SBP in 80's, received a toatl of 2 L IVF boluses. Feels "a little better". Iniguez shad intermittent abd pain x 2 months that was thought to be related to UTI Objective Active Medications: Acetaminophen (Tylenol Tab*) 650 mg PO Q4H PRN PRN Reason: FEVER/PAIN Last Admin: 07/05/17 04:17 Dose: 650 mg Piperacillin Sod/Tazobactam (Sod 3.375 gm/ Sodium Chloride) 100 mls @ 25 mls/ hr IVPB Q8H [facility] Last Admin: 07/05/17 04:03 Dose: 25 mls/hr Sodium Chloride (Ns 0.9% 1000 Ml*) 1,000 mls @ 75 mls/hr IV PER RATE [facility] Last Admin: 07/05/17 11:01 Dose: 75 mls/hr Morphine Sulfate (Morphine Inj (Syringe)*) 2 mg IV Q4H PRN PRN Reason: PAIN - MILD Last Admin: 07/04/17 17:35 Dose: 2 mg Ondansetron HCl (Zofran Inj*) 4 mg IV Q6H PRN PRN Reason: NAUSEA Oxycodone/Acetaminophen (Percocet 5/325 Tab*) 1 tab PO Q4H PRN PRN Reason: PAIN Oxycodone/Acetaminophen (Percocet 5/325 Tab*) 2 tab PO Q4H PRN PRN Reason: PAIN - SEVERE Last Admin: 07/05/17 09:35 Dose: 2 tab Pharmacy Consult (Zosyn Per Pharmacy*) 1 note FOLLOW UP .ZOSYN PER PHARMACY [facility] Vital Signs - 8 hr 07/05/17 07/05/17 07/05/17 04:02 07:15 07:30 Temperature 98.0 F 97.7 F Pulse Rate 61 64 Respiratory 16 16 16 Rate Blood Pressure 85/48 94/53 (mmHg) O2 Sat by Pulse 96 96 Oximetry 07/05/17 09:35 Temperature Pulse Rate Respiratory 16 Rate Blood Pressure (mmHg) O2 Sat by Pulse Oximetry Oxygen Devices in Use Now: None Appearance: 41 to F in nAD, AAOx3 Eyes: No Scleral Icterus, PERRLA Ears/Nose/Mouth/Throat: NL Teeth, Lips, Gums, Mucous Membranes Moist Neck: NL Appearance and Movements; NL JVP, Trachea Midline Respiratory: Symmetrical Chest Expansion and Respiratory Effort, Clear to Auscultation Cardiovascular: NL Sounds; No Murmurs; No JVD, RRR Abdominal: - - tender in b/l Lower quadrants with no rebound, no guarding, BS+ Lymphatic: No Cervical Adenopathy Extremities: No Edema, No Clubbing, Cyanosis Skin: No Rash or Ulcers, No Nodules or Sclerosis Neurological: Alert and Oriented x 3, NL Muscle Strength and Tone Result Diagrams: 07/05/17 05:03 07/05/17 05:03 Additional Lab and Data: Lab Results 07/04/17 07/04/17 07/04/17 Range/Units 10:02 10:02 10:02 WBC 10.7 (3.5-10.8) 10^3/ul RBC 5.06 (4.0-5.4) 10^6/ul Hgb 14.3 (12.0-16.0) g/dl Hct 42 (35-47) % MCV 83 (80-97) fL MCH 28 (27-31) pg MCHC 34 (31-36) g/dl RDW 13 (10.5-15) % Plt Count 266 (150-450) 10^3/ul MPV 9 (7.4-10.4) um3 Neut % (Auto) 84.0 H (38-83) % Lymph % (Auto) 7.5 L (25-47) % [place] % (Auto) 8.0 H (0-7) % Eos % (Auto) 0.1 (0-6) % Baso % (Auto) 0.4 (0-2) % Absolute Neuts (auto) 8.9 H (1.5-7.7) 10^3/ul Absolute Lymphs (auto) 0.8 L (1.0-4.8) 10^3/ul Absolute Monos (auto) 0.9 H (0-0.8) 10^3/ul Absolute Eos (auto) 0 (0-0.6) 10^3/ul Absolute Basos (auto) 0 (0-0.2) 10^3/ul Absolute Nucleated RBC 0 10^3/ul Nucleated RBC % 0.2 Sodium 134 (133-145) mmol/L Potassium 4.1 (3.5-5.0) mmol/L Chloride 103 (101-111) mmol/L Carbon Dioxide 26 (22-32) mmol/L Anion Gap 5 (2-11) mmol/L BUN 10 (6-24) mg/dL Creatinine 0.76 (0.51-0.95) mg/dL Est GFR ( Amer) 107.3 (>60) Est GFR (Non-Af Amer) 83.5 (>60) BUN/Creatinine Ratio 13.2 (8-20) Glucose 121 H (70-100) mg/dL Lactic Acid 0.8 (0.5-2.0) mmol/L Calcium 8.9 (8.6-10.3) mg/dL Magnesium 2.0 (1.9-2.7) mg/dL Total Bilirubin 0.70 (0.2-1.0) mg/dL AST 14 (13-39) U/L ALT 13 (7-52) U/L Alkaline Phosphatase 84 (34-104) U/L C-Reactive Protein 72.02 H (< 5.00) mg/L Total Protein 6.9 (6.4-8.9) g/dL Albumin 3.9 (3.2-5.2) g/dL Globulin 3.0 (2-4) g/dL Albumin/Globulin Ratio 1.3 (1-3) Lipase < 10 L (11.0-82.0) U/L Beta HCG, Quant < 0.60 mIU/mL Urine Color Urine Appearance Urine pH (5-9) Ur Specific [place] (1.010-1.030) Urine Protein (Negative) Urine Ketones (Negative) Urine Blood (Negative) Urine Nitrate (Negative) Urine Bilirubin (Negative) Urine Urobilinogen (Negative) Ur Leukocyte Esterase (Negative) Urine Glucose (Negative) 07/04/17 Range/Units 10:56 WBC (3.5-10.8) 10^3/ul RBC (4.0-5.4) 10^6/ul Hgb (12.0-16.0) g/dl Hct (35-47) % MCV (80-97) fL MCH (27-31) pg MCHC (31-36) g/dl RDW (10.5-15) % Plt Count (150-450) 10^3/ul MPV (7.4-10.4) um3 Neut % (Auto) (38-83) % Lymph % (Auto) (25-47) % [place] % (Auto) (0-7) % Eos % (Auto) (0-6) % Baso % (Auto) (0-2) % Absolute Neuts (auto) (1.5-7.7) 10^3/ul Absolute Lymphs (auto) (1.0-4.8) 10^3/ul Absolute Monos (auto) (0-0.8) 10^3/ul Absolute Eos (auto) (0-0.6) 10^3/ul Absolute Basos (auto) (0-0.2) 10^3/ul Absolute Nucleated RBC 10^3/ul Nucleated RBC % Sodium (133-145) mmol/L Potassium (3.5-5.0) mmol/L Chloride (101-111) mmol/L Carbon Dioxide (22-32) mmol/L Anion Gap (2-11) mmol/L BUN (6-24) mg/dL Creatinine (0.51-0.95) mg/dL Est GFR ( Amer) (>60) Est GFR (Non-Af Amer) (>60) BUN/Creatinine Ratio (8-20) Glucose (70-100) mg/dL Lactic Acid (0.5-2.0) mmol/L Calcium (8.6-10.3) mg/dL Magnesium (1.9-2.7) mg/dL Total Bilirubin (0.2-1.0) mg/dL AST (13-39) U/L ALT (7-52) U/L Alkaline Phosphatase (34-104) U/L C-Reactive Protein (< 5.00) mg/L Total Protein (6.4-8.9) g/dL Albumin (3.2-5.2) g/dL Globulin (2-4) g/dL Albumin/Globulin Ratio (1-3) Lipase (11.0-82.0) U/L Beta HCG, Quant mIU/mL Urine Color Yellow Urine Appearance Clear Urine pH 6.0 (5-9) Ur Specific [place] 1.025 (1.010-1.030) Urine Protein Negative (Negative) Urine Ketones 1+ H (Negative) Urine Blood Negative (Negative) Urine Nitrate Negative (Negative) Urine Bilirubin Negative (Negative) Urine Urobilinogen Negative (Negative) Ur Leukocyte Esterase Negative (Negative) Urine Glucose Negative (Negative) Assess/Plan/Problems-Billing Assessment: 41 yo F with recent h/o lower abd pain that was thought to be related to UTI now with diverticulitis and organizing abscess - Patient Problems (1) Diverticulitis large intestine Comment: Pain is improving cont IVF, clears and Zosyn appreciate surgery's consult so far no drainable collection as per IR will get stool cx (2) DVT prophylaxis Comment: SCD and ambulation Status and Disposition: inpatient
[2017-07-05] MEDS: Ondansetron INJ* 2 MG/ML VIAL IV PRN (15:48)
[2017-07-06] MEDS: Acetaminophen TAB* 325 MG PO PRN ×5 (00:26→21:58)
[2017-07-06] MEDS: ZOSYN 3.375 GM Q8H per EXTENDED INFUSION IVPB SCH ×6 (03:47→19:09)
[2017-07-06] MEDS ORDERED: Potassium Chlor TAB* 20 MEQ TAB.ER PO ONE (07:43)
--- NOTE | 2017-07-06 09:32 | PN ---
Subjective Date of Service: 07/06/17 Interval History: pt had 4 loose BM's last night. Had bad dreams on Percocet and decided not to take narcotics and tx with Tylenol only this AM. Still in significant abd pain Objective Active Medications: Acetaminophen (Tylenol Tab*) 650 mg PO Q4H PRN PRN Reason: FEVER/PAIN Last Admin: 07/06/17 07:46 Dose: 650 mg Piperacillin Sod/Tazobactam (Sod 3.375 gm/ Sodium Chloride) 100 mls @ 25 mls/ hr IVPB Q8H [facility] Last Admin: 07/06/17 03:47 Dose: 25 mls/hr Sodium Chloride (Ns 0.9% 1000 Ml*) 1,000 mls @ 75 mls/hr IV PER RATE [facility] Last Admin: 07/05/17 19:58 Dose: 75 mls/hr Morphine Sulfate (Morphine Inj (Syringe)*) 2 mg IV Q4H PRN PRN Reason: PAIN - MILD Last Admin: 07/04/17 17:35 Dose: 2 mg Ondansetron HCl (Zofran Inj*) 4 mg IV Q6H PRN PRN Reason: NAUSEA Last Admin: 07/05/17 15:48 Dose: 4 mg Oxycodone/Acetaminophen (Percocet 5/325 Tab*) 1 tab PO Q4H PRN PRN Reason: PAIN Oxycodone/Acetaminophen (Percocet 5/325 Tab*) 2 tab PO Q4H PRN PRN Reason: PAIN - SEVERE Last Admin: 07/05/17 15:53 Dose: 2 tab Pharmacy Consult (Zosyn Per Pharmacy*) 1 note FOLLOW UP .ZOSYN PER PHARMACY [facility] Vital Signs - 8 hr 07/06/17 07/06/17 07/06/17 04:03 07:35 07:40 Temperature 98.4 F 98.9 F Pulse Rate 60 70 Respiratory 16 16 18 Rate Blood Pressure 92/60 120/63 (mmHg) O2 Sat by Pulse 97 98 Oximetry Oxygen Devices in Use Now: None Appearance: 41 yo F in nAD, aAOx3 Eyes: No Scleral Icterus, PERRLA Ears/Nose/Mouth/Throat: NL Teeth, Lips, Gums, Mucous Membranes Moist Neck: NL Appearance and Movements; NL JVP, Trachea Midline Respiratory: Symmetrical Chest Expansion and Respiratory Effort, Clear to Auscultation Cardiovascular: NL Sounds; No Murmurs; No JVD, RRR Abdominal: - - tender in b/l LQ's, no rebound, no guarding , BS+ Lymphatic: No Cervical Adenopathy Extremities: No Edema, No Clubbing, Cyanosis Skin: No Rash or Ulcers, No Nodules or Sclerosis Neurological: Alert and Oriented x 3, NL Muscle Strength and Tone Result Diagrams: 07/05/17 05:03 07/06/17 05:34 Additional Lab and Data: Lab Results 07/04/17 07/04/17 07/04/17 Range/Units 10:02 10:02 10:02 WBC 10.7 (3.5-10.8) 10^3/ul RBC 5.06 (4.0-5.4) 10^6/ul Hgb 14.3 (12.0-16.0) g/dl Hct 42 (35-47) % MCV 83 (80-97) fL MCH 28 (27-31) pg MCHC 34 (31-36) g/dl RDW 13 (10.5-15) % Plt Count 266 (150-450) 10^3/ul MPV 9 (7.4-10.4) um3 Neut % (Auto) 84.0 H (38-83) % Lymph % (Auto) 7.5 L (25-47) % [place] % (Auto) 8.0 H (0-7) % Eos % (Auto) 0.1 (0-6) % Baso % (Auto) 0.4 (0-2) % Absolute Neuts (auto) 8.9 H (1.5-7.7) 10^3/ul Absolute Lymphs (auto) 0.8 L (1.0-4.8) 10^3/ul Absolute Monos (auto) 0.9 H (0-0.8) 10^3/ul Absolute Eos (auto) 0 (0-0.6) 10^3/ul Absolute Basos (auto) 0 (0-0.2) 10^3/ul Absolute Nucleated RBC 0 10^3/ul Nucleated RBC % 0.2 Sodium 134 (133-145) mmol/L Potassium 4.1 (3.5-5.0) mmol/L Chloride 103 (101-111) mmol/L Carbon Dioxide 26 (22-32) mmol/L Anion Gap 5 (2-11) mmol/L BUN 10 (6-24) mg/dL Creatinine 0.76 (0.51-0.95) mg/dL Est GFR ( Amer) 107.3 (>60) Est GFR (Non-Af Amer) 83.5 (>60) BUN/Creatinine Ratio 13.2 (8-20) Glucose 121 H (70-100) mg/dL Lactic Acid 0.8 (0.5-2.0) mmol/L Calcium 8.9 (8.6-10.3) mg/dL Magnesium 2.0 (1.9-2.7) mg/dL Total Bilirubin 0.70 (0.2-1.0) mg/dL AST 14 (13-39) U/L ALT 13 (7-52) U/L Alkaline Phosphatase 84 (34-104) U/L C-Reactive Protein 72.02 H (< 5.00) mg/L Total Protein 6.9 (6.4-8.9) g/dL Albumin 3.9 (3.2-5.2) g/dL Globulin 3.0 (2-4) g/dL Albumin/Globulin Ratio 1.3 (1-3) Lipase < 10 L (11.0-82.0) U/L Beta HCG, Quant < 0.60 mIU/mL Urine Color Urine Appearance Urine pH (5-9) Ur Specific [place] (1.010-1.030) Urine Protein (Negative) Urine Ketones (Negative) Urine Blood (Negative) Urine Nitrate (Negative) Urine Bilirubin (Negative) Urine Urobilinogen (Negative) Ur Leukocyte Esterase (Negative) Urine Glucose (Negative) 07/04/17 Range/Units 10:56 WBC (3.5-10.8) 10^3/ul RBC (4.0-5.4) 10^6/ul Hgb (12.0-16.0) g/dl Hct (35-47) % MCV (80-97) fL MCH (27-31) pg MCHC (31-36) g/dl RDW (10.5-15) % Plt Count (150-450) 10^3/ul MPV (7.4-10.4) um3 Neut % (Auto) (38-83) % Lymph % (Auto) (25-47) % [place] % (Auto) (0-7) % Eos % (Auto) (0-6) % Baso % (Auto) (0-2) % Absolute Neuts (auto) (1.5-7.7) 10^3/ul Absolute Lymphs (auto) (1.0-4.8) 10^3/ul Absolute Monos (auto) (0-0.8) 10^3/ul Absolute Eos (auto) (0-0.6) 10^3/ul Absolute Basos (auto) (0-0.2) 10^3/ul Absolute Nucleated RBC 10^3/ul Nucleated RBC % Sodium (133-145) mmol/L Potassium (3.5-5.0) mmol/L Chloride (101-111) mmol/L Carbon Dioxide (22-32) mmol/L Anion Gap (2-11) mmol/L BUN (6-24) mg/dL Creatinine (0.51-0.95) mg/dL Est GFR ( Amer) (>60) Est GFR (Non-Af Amer) (>60) BUN/Creatinine Ratio (8-20) Glucose (70-100) mg/dL Lactic Acid (0.5-2.0) mmol/L Calcium (8.6-10.3) mg/dL Magnesium (1.9-2.7) mg/dL Total Bilirubin (0.2-1.0) mg/dL AST (13-39) U/L ALT (7-52) U/L Alkaline Phosphatase (34-104) U/L C-Reactive Protein (< 5.00) mg/L Total Protein (6.4-8.9) g/dL Albumin (3.2-5.2) g/dL Globulin (2-4) g/dL Albumin/Globulin Ratio (1-3) Lipase (11.0-82.0) U/L Beta HCG, Quant mIU/mL Urine Color Yellow Urine Appearance Clear Urine pH 6.0 (5-9) Ur Specific [place] 1.025 (1.010-1.030) Urine Protein Negative (Negative) Urine Ketones 1+ H (Negative) Urine Blood Negative (Negative) Urine Nitrate Negative (Negative) Urine Bilirubin Negative (Negative) Urine Urobilinogen Negative (Negative) Ur Leukocyte Esterase Negative (Negative) Urine Glucose Negative (Negative) Microbiology and Other Data: Microbiology 07/05/17 05:03 Aerobic Blood Culture - Preliminary Blood Venous No Growth Day 1 Anaerobic Blood Culture - Preliminary No Growth Day 1 07/06/17 03:30 Stool Gross Appearance - Final Stool 07/04/17 17:03 Aerobic Blood Culture - Preliminary Blood Venous No Growth Day 1 Anaerobic Blood Culture - Preliminary No Growth Day 1 Assess/Plan/Problems-Billing Assessment: 41 yo F with recent h/o lower abd pain that was thought to be related to UTI now with diverticulitis and organizing abscess - Patient Problems (1) Diverticulitis large intestine Comment: Pain is still significant. will slowly advance diet to full liquids and observe. cont Zosyn appreciate surgery's consult so far no drainable collection as per IR (2) DVT prophylaxis Comment: SCD and ambulation Status and Disposition: inpatient
--- NOTE | 2017-07-06 14:06 | PN ---
Progress Note - Progress Note Date of Service: 07/06/17 SOAP: Subjective: [Patient seen and examined at bedside. Today she reports feeling "pretty good". She continues to have diffuse abdominal tenderness with more tenderness in the LLQ. She reports taking Percocet last night for pain control and had "horrible nightmares" and therefore did not sleep well. Today she has taken only Tylenol which seems to help alleviate the pain somewhat. She states she had 4-5 loose bowel movements this morning. Denies blood. Denies N/V. Denies dysuria or hematuria. Denies CP or SOB. Reports a mild headache but thinks it maybe due to lack of caffeine. Continues to tolerate full liquid diet. Has been ambulating independently in the room. ] Objective: [Vitals Selected Entries 07/06/17 07/06/17 07:35 11:26 Temperature 98.9 F 97.9 F Pulse Rate 70 58 Respiratory 16 16 Rate Blood Pressure 120/63 115/69 (mmHg) Blood Pressure 76 79 Mean O2 Sat by Pulse 98 99 Oximetry Intake & Output 07/05/17 07/06/17 07/06/17 22:59 06:59 14:59 Intake Total 612 0 1091 Output Total 2493 571 8920 Balance -988 -650 -284 Intake: IV Fluids 612 661 ABX - PIPERACILLIN 105 NS (0.9%) 507 661 Oral 0 430 Output: Urine 3375 021 9561 General: Alert and orientated female ambulating in room. NAD. Appears stated age. Cardiovascular: RRR. No murmurs, rubs or gallops appreciated. Respiratory: CTA throughout in the anterior position. No rhonchi, wheezes or rales appreciated. Abdomen: Inspection reveals small laparoscopic incisions from previous appendectomy procedure. No hernias or masses. + BS heard throughout all quadrants. Tenderness to palpation throughout the abdomen with the most tenderness along the lower abdomen. No HSM appreciated. Extremities: No clubbing or cyanosis. No edema appreciated. Laboratory Tests 07/05/17 05:03 WBC 6.8 Laboratory Tests 07/05/17 05:03 RBC 3.93 L Hgb 11.2 L Hct 33 L MCV 83 MCH 29 MCHC 35 RDW 13 Plt Count 192 Stool culture pending results. ] Assessment: [Ms. Thomas is a 41 year old female with PMH of hypothyroidism who was admitted to the hospital with diverticulitis with diverticular abscess. Patient appears to be improving with abx therapy. Vitals WNL. No leukocytosis. Patient is tolerating diet well and moving her bowels. Continues to experience abdominal pain, however, seems to be well managed with pain medication. ] Plan: [Continue with conservative treatment with Abx therapy. Advance diet as tolerated. Monitor I/Os. Check CBC tomorrow for leukocytosis. Control mild/ moderate pain with Tylenol and continue with morphine for severe pain. Encouraged patient to continue daily ambulation as tolerated. Ivana CASTREJONS ] <Ivana Duran - Last Filed: 07/06/17 14:01> - Progress Note SOAP: Agree with the above SOAP note. Plans were discussed, no surgical indications at this time. Will continue to follow. <Bobby Abreu - Last Filed: 07/06/17 14:23>
[2017-07-06] MEDS: Ondansetron INJ* 2 MG/ML VIAL IV PRN (21:58)
[2017-07-07] MEDS: ZOSYN 3.375 GM Q8H per EXTENDED INFUSION IVPB SCH ×6 (03:48→20:14)
[2017-07-07 06:21] LABS: ABS Basophils 0 10^3/ul (0-0.2); ABS Eosinophils 0.1 10^3/ul (0-0.6); ABS Lymphocytes 0.8 10^3/ul (1.0-4.8); ABS Monocytes 0.2 10^3/ul (0-0.8); ABS Neutrophils 1.8 10^3/ul (1.5-7.7); ABS Nucleated RBC 0 10^3/ul; Eosinophil % 2.7 % (0-6); Hematocrit 34 % (35-47); Lymphocyte % 27.9 % (25-47); Mean Corpuscular HGB Conc 36 g/dl (31-36); Mean Corpuscular Hemoglobin 29 pg (27-31); Mean Corpuscular Volume 82 fL (80-97); Mean Platelet Volume 9 um3 (7.4-10.4); Nucleated Red Blood Cells % 0.1; Platelet Count 256 10^3/ul (150-450); Red Blood Count 4.11 10^6/ul (4.0-5.4); Red Cell Distribution Width 13 % (10.5-15)
[2017-07-07 06:38] LABS: EGFR Non-African American 101.8 (>60)
[2017-07-07] MEDS: Acetaminophen TAB* 325 MG PO PRN ×4 (07:51→23:46)
--- NOTE | 2017-07-07 09:33 | PN ---
Progress Note - Progress Note Date of Service: 07/07/17 SOAP: Subjective: She feels her abdominal pain is somewhat better She is tolerating liquids and is having loose BM's and passing flatus She is ambulating in the halls Objective: Temp Pulse Resp BP Pulse Ox 97.5 F 49 16 102/58 99 07/07/17 08:36 07/07/17 08:36 07/07/17 08:36 07/07/17 08:36 07/07/17 08:36 Intake & Output 07/05/17 07/06/17 07/07/17 07/08/17 06:59 06:59 06:59 06:59 Intake Total 2948 2589 1541 Output Total 870 3975 1675 700 Balance 2078 -1386 -134 -700 Weight 155 lb Intake: IV Fluids 2048 1569 661 ABX - PIPERACILLIN 105 NS (0.9%) 948 1464 661 IVPB 100 ABX - PIPERACILLIN 100 Oral 900 920 880 Output: Urine 870 3975 1675 700 Other: Date of Last Bowel 07/03/17 Movement # Bowel Movements 0 Estimated Stool Amount Medium PEX: Comfortable Abd is soft and slightly distended. Bowel sounds are present and are normoactive throughout. Mild LLQ tenderness with some guarding but no peritoneal irritation. Laboratory Results - last 24 hr 07/07/17 07/07/17 05:20 05:20 WBC 3.0 L RBC 4.11 Hgb 12.0 Hct 34 L MCV 82 MCH 29 MCHC 36 RDW 13 Plt Count 256 MPV 9 Neut % (Auto) 61.6 Lymph % (Auto) 27.9 [place] % (Auto) 7.1 H Eos % (Auto) 2.7 Baso % (Auto) 0.7 Absolute Neuts (auto) 1.8 Absolute Lymphs (auto) 0.8 L Absolute Monos (auto) 0.2 Absolute Eos (auto) 0.1 Absolute Basos (auto) 0 Absolute Nucleated RBC 0 Nucleated RBC % 0.1 Sodium 136 Potassium 3.7 Chloride 107 Carbon Dioxide 24 Anion Gap 5 BUN 3 L Creatinine 0.64 Est GFR ( Amer) 130.9 Est GFR (Non-Af Amer) 101.8 BUN/Creatinine Ratio 4.7 L Glucose 96 Calcium 8.4 L C-Reactive Protein 52.94 H Assessment: Sigmoid diverticulitis-?? phlegmon v abscess on initial CT scan Overall she is doing better but still with abdominal pain Plan: Continue IV abx Probably repeat CT tomorrow if no dramatic improvement.
--- NOTE | 2017-07-07 16:08 | PN ---
Subjective Date of Service: 07/07/17 Interval History: Pt still has significant pain in lower abdomen. Had two loose BM's today Objective Active Medications: Acetaminophen (Tylenol Tab*) 650 mg PO Q4H PRN PRN Reason: FEVER/PAIN Last Admin: 07/07/17 12:58 Dose: 650 mg Piperacillin Sod/Tazobactam (Sod 3.375 gm/ Sodium Chloride) 100 mls @ 25 mls/ hr IVPB Q8H KLAUDIA Last Admin: 07/07/17 12:59 Dose: 25 mls/hr Morphine Sulfate (Morphine Inj (Syringe)*) 2 mg IV Q4H PRN PRN Reason: PAIN - MILD Last Admin: 07/04/17 17:35 Dose: 2 mg Ondansetron HCl (Zofran Inj*) 4 mg IV Q6H PRN PRN Reason: NAUSEA Last Admin: 07/06/17 21:58 Dose: 4 mg Oxycodone/Acetaminophen (Percocet 5/325 Tab*) 1 tab PO Q4H PRN PRN Reason: PAIN Oxycodone/Acetaminophen (Percocet 5/325 Tab*) 2 tab PO Q4H PRN PRN Reason: PAIN - SEVERE Last Admin: 07/05/17 15:53 Dose: 2 tab Pharmacy Consult (Zosyn Per Pharmacy*) 1 note FOLLOW UP .ZOSYN PER PHARMACY [facility] Vital Signs - 8 hr 07/07/17 07/07/17 07/07/17 08:36 11:36 13:31 Temperature 97.5 F 99.0 F Pulse Rate 49 46 Respiratory 16 16 Rate Blood Pressure 102/58 112/59 (mmHg) O2 Sat by Pulse 99 98 96 Oximetry Oxygen Devices in Use Now: None Appearance: 41 yo F in NAD, AAOx3 Eyes: No Scleral Icterus, PERRLA Ears/Nose/Mouth/Throat: NL Teeth, Lips, Gums, Mucous Membranes Moist Neck: NL Appearance and Movements; NL JVP, Trachea Midline Respiratory: Symmetrical Chest Expansion and Respiratory Effort, Clear to Auscultation Cardiovascular: NL Sounds; No Murmurs; No JVD, RRR Abdominal: No Hepatosplenomegaly, - - tendr in b/l lower quadrants, no rebound, voluntary guarding+ guarding, BS+ Lymphatic: No Cervical Adenopathy Extremities: No Edema, No Clubbing, Cyanosis Skin: No Rash or Ulcers, No Nodules or Sclerosis Neurological: Alert and Oriented x 3, NL Muscle Strength and Tone Result Diagrams: 07/07/17 05:20 07/07/17 05:20 Additional Lab and Data: Lab Results 07/04/17 07/04/17 07/04/17 Range/Units 10:02 10:02 10:02 WBC 10.7 (3.5-10.8) 10^3/ul RBC 5.06 (4.0-5.4) 10^6/ul Hgb 14.3 (12.0-16.0) g/dl Hct 42 (35-47) % MCV 83 (80-97) fL MCH 28 (27-31) pg MCHC 34 (31-36) g/dl RDW 13 (10.5-15) % Plt Count 266 (150-450) 10^3/ul MPV 9 (7.4-10.4) um3 Neut % (Auto) 84.0 H (38-83) % Lymph % (Auto) 7.5 L (25-47) % [place] % (Auto) 8.0 H (0-7) % Eos % (Auto) 0.1 (0-6) % Baso % (Auto) 0.4 (0-2) % Absolute Neuts (auto) 8.9 H (1.5-7.7) 10^3/ul Absolute Lymphs (auto) 0.8 L (1.0-4.8) 10^3/ul Absolute Monos (auto) 0.9 H (0-0.8) 10^3/ul Absolute Eos (auto) 0 (0-0.6) 10^3/ul Absolute Basos (auto) 0 (0-0.2) 10^3/ul Absolute Nucleated RBC 0 10^3/ul Nucleated RBC % 0.2 Sodium 134 (133-145) mmol/L Potassium 4.1 (3.5-5.0) mmol/L Chloride 103 (101-111) mmol/L Carbon Dioxide 26 (22-32) mmol/L Anion Gap 5 (2-11) mmol/L BUN 10 (6-24) mg/dL Creatinine 0.76 (0.51-0.95) mg/dL Est GFR ( Amer) 107.3 (>60) Est GFR (Non-Af Amer) 83.5 (>60) BUN/Creatinine Ratio 13.2 (8-20) Glucose 121 H (70-100) mg/dL Lactic Acid 0.8 (0.5-2.0) mmol/L Calcium 8.9 (8.6-10.3) mg/dL Magnesium 2.0 (1.9-2.7) mg/dL Total Bilirubin 0.70 (0.2-1.0) mg/dL AST 14 (13-39) U/L ALT 13 (7-52) U/L Alkaline Phosphatase 84 (34-104) U/L C-Reactive Protein 72.02 H (< 5.00) mg/L Total Protein 6.9 (6.4-8.9) g/dL Albumin 3.9 (3.2-5.2) g/dL Globulin 3.0 (2-4) g/dL Albumin/Globulin Ratio 1.3 (1-3) Lipase < 10 L (11.0-82.0) U/L Beta HCG, Quant < 0.60 mIU/mL Urine Color Urine Appearance Urine pH (5-9) Ur Specific [place] (1.010-1.030) Urine Protein (Negative) Urine Ketones (Negative) Urine Blood (Negative) Urine Nitrate (Negative) Urine Bilirubin (Negative) Urine Urobilinogen (Negative) Ur Leukocyte Esterase (Negative) Urine Glucose (Negative) 07/04/17 Range/Units 10:56 WBC (3.5-10.8) 10^3/ul RBC (4.0-5.4) 10^6/ul Hgb (12.0-16.0) g/dl Hct (35-47) % MCV (80-97) fL MCH (27-31) pg MCHC (31-36) g/dl RDW (10.5-15) % Plt Count (150-450) 10^3/ul MPV (7.4-10.4) um3 Neut % (Auto) (38-83) % Lymph % (Auto) (25-47) % [place] % (Auto) (0-7) % Eos % (Auto) (0-6) % Baso % (Auto) (0-2) % Absolute Neuts (auto) (1.5-7.7) 10^3/ul Absolute Lymphs (auto) (1.0-4.8) 10^3/ul Absolute Monos (auto) (0-0.8) 10^3/ul Absolute Eos (auto) (0-0.6) 10^3/ul Absolute Basos (auto) (0-0.2) 10^3/ul Absolute Nucleated RBC 10^3/ul Nucleated RBC % Sodium (133-145) mmol/L Potassium (3.5-5.0) mmol/L Chloride (101-111) mmol/L Carbon Dioxide (22-32) mmol/L Anion Gap (2-11) mmol/L BUN (6-24) mg/dL Creatinine (0.51-0.95) mg/dL Est GFR ( Amer) (>60) Est GFR (Non-Af Amer) (>60) BUN/Creatinine Ratio (8-20) Glucose (70-100) mg/dL Lactic Acid (0.5-2.0) mmol/L Calcium (8.6-10.3) mg/dL Magnesium (1.9-2.7) mg/dL Total Bilirubin (0.2-1.0) mg/dL AST (13-39) U/L ALT (7-52) U/L Alkaline Phosphatase (34-104) U/L C-Reactive Protein (< 5.00) mg/L Total Protein (6.4-8.9) g/dL Albumin (3.2-5.2) g/dL Globulin (2-4) g/dL Albumin/Globulin Ratio (1-3) Lipase (11.0-82.0) U/L Beta HCG, Quant mIU/mL Urine Color Yellow Urine Appearance Clear Urine pH 6.0 (5-9) Ur Specific [place] 1.025 (1.010-1.030) Urine Protein Negative (Negative) Urine Ketones 1+ H (Negative) Urine Blood Negative (Negative) Urine Nitrate Negative (Negative) Urine Bilirubin Negative (Negative) Urine Urobilinogen Negative (Negative) Ur Leukocyte Esterase Negative (Negative) Urine Glucose Negative (Negative) Microbiology and Other Data: Microbiology 07/05/17 05:03 Aerobic Blood Culture - Preliminary Blood Venous No Growth Day 1 Anaerobic Blood Culture - Preliminary No Growth Day 1 07/06/17 03:30 Stool Gross Appearance - Final Stool 07/04/17 17:03 Aerobic Blood Culture - Preliminary Blood Venous No Growth Day 1 Anaerobic Blood Culture - Preliminary No Growth Day 1 Assess/Plan/Problems-Billing Assessment: 41 yo F with recent h/o lower abd pain that was thought to be related to UTI now with diverticulitis and organizing abscess - Patient Problems (1) Diverticulitis large intestine Comment: Pain is still significant. cont full liquids and observe. cont Zosyn Mild leukopenia today? significance?-will monitor appreciate surgery's consult so far no drainable collection as per IR, although the collection is [address] in AM if no improvement (2) DVT prophylaxis Comment: SCD and ambulation Status and Disposition: inpatient
[2017-07-07] MEDS: Ondansetron INJ* 2 MG/ML VIAL IV PRN (23:42)
[2017-07-08] MEDS: ZOSYN 3.375 GM Q8H per EXTENDED INFUSION IVPB SCH ×6 (03:50→19:46)
[2017-07-08 06:00] LABS: ABS Basophils 0 10^3/ul (0-0.2); ABS Eosinophils 0.1 10^3/ul (0-0.6); ABS Monocytes 0.2 10^3/ul (0-0.8); ABS Neutrophils 1.9 10^3/ul (1.5-7.7); ABS Nucleated RBC 0 10^3/ul; Eosinophil % 2.8 % (0-6); Hematocrit 38 % (35-47); Hemoglobin 12.8 g/dl (12.0-16.0); Lymphocyte % 30.9 % (25-47); Mean Corpuscular HGB Conc 34 g/dl (31-36); Mean Corpuscular Hemoglobin 28 pg (27-31); Mean Corpuscular Volume 82 fL (80-97); Mean Platelet Volume 9 um3 (7.4-10.4); Nucleated Red Blood Cells % 0.1; Platelet Count 282 10^3/ul (150-450); Red Blood Count 4.57 10^6/ul (4.0-5.4); Red Cell Distribution Width 13 % (10.5-15); White Blood Count 3.3 10^3/ul (3.5-10.8)
[2017-07-08 06:15] LABS: EGFR Non-African American 107.6 (>60)
--- NOTE | 2017-07-08 09:13 | PN ---
Subjective Date of Service: 07/08/17 Interval History: "Still hurts the same", drinking a lot, but eating very little due to nausea. Prefers not to use narcotics for pain. Loose BM this aM Objective Active Medications: Acetaminophen (Tylenol Tab*) 650 mg PO Q4H PRN PRN Reason: FEVER/PAIN Last Admin: 07/07/17 23:46 Dose: 650 mg Piperacillin Sod/Tazobactam (Sod 3.375 gm/ Sodium Chloride) 100 mls @ 25 mls/ hr IVPB Q8H KLAUDIA Last Admin: 07/08/17 03:50 Dose: 25 mls/hr Morphine Sulfate (Morphine Inj (Syringe)*) 2 mg IV Q4H PRN PRN Reason: PAIN - MILD Last Admin: 07/04/17 17:35 Dose: 2 mg Ondansetron HCl (Zofran Inj*) 4 mg IV Q6H PRN PRN Reason: NAUSEA Last Admin: 07/07/17 23:42 Dose: 4 mg Oxycodone/Acetaminophen (Percocet 5/325 Tab*) 1 tab PO Q4H PRN PRN Reason: PAIN Oxycodone/Acetaminophen (Percocet 5/325 Tab*) 2 tab PO Q4H PRN PRN Reason: PAIN - SEVERE Last Admin: 07/05/17 15:53 Dose: 2 tab Pharmacy Consult (Zosyn Per Pharmacy*) 1 note FOLLOW UP .ZOSYN PER PHARMACY [facility] Vital Signs - 8 hr 07/08/17 07/08/17 07/08/17 04:00 04:31 07:48 Temperature 96.9 F 97.6 F Pulse Rate 50 56 Respiratory 16 16 Rate Blood Pressure 115/63 103/61 (mmHg) O2 Sat by Pulse 97 98 96 Oximetry 07/08/17 08:00 Temperature Pulse Rate Respiratory 18 Rate Blood Pressure (mmHg) O2 Sat by Pulse Oximetry Oxygen Devices in Use Now: None Appearance: 41 yo F in nAD, AAOx3 Eyes: No Scleral Icterus, PERRLA Ears/Nose/Mouth/Throat: NL Teeth, Lips, Gums, Mucous Membranes Moist Neck: NL Appearance and Movements; NL JVP Respiratory: Symmetrical Chest Expansion and Respiratory Effort, Clear to Auscultation Cardiovascular: NL Sounds; No Murmurs; No JVD, RRR Abdominal: - - tenderness and voluntary guarding in b/l lower quadrants Lymphatic: No Cervical Adenopathy Extremities: No Edema, No Clubbing, Cyanosis Skin: No Rash or Ulcers, No Nodules or Sclerosis Neurological: Alert and Oriented x 3, NL Muscle Strength and Tone Result Diagrams: 07/08/17 05:34 07/08/17 05:34 Additional Lab and Data: Lab Results 07/04/17 07/04/17 07/04/17 Range/Units 10:02 10:02 10:02 WBC 10.7 (3.5-10.8) 10^3/ul RBC 5.06 (4.0-5.4) 10^6/ul Hgb 14.3 (12.0-16.0) g/dl Hct 42 (35-47) % MCV 83 (80-97) fL MCH 28 (27-31) pg MCHC 34 (31-36) g/dl RDW 13 (10.5-15) % Plt Count 266 (150-450) 10^3/ul MPV 9 (7.4-10.4) um3 Neut % (Auto) 84.0 H (38-83) % Lymph % (Auto) 7.5 L (25-47) % [place] % (Auto) 8.0 H (0-7) % Eos % (Auto) 0.1 (0-6) % Baso % (Auto) 0.4 (0-2) % Absolute Neuts (auto) 8.9 H (1.5-7.7) 10^3/ul Absolute Lymphs (auto) 0.8 L (1.0-4.8) 10^3/ul Absolute Monos (auto) 0.9 H (0-0.8) 10^3/ul Absolute Eos (auto) 0 (0-0.6) 10^3/ul Absolute Basos (auto) 0 (0-0.2) 10^3/ul Absolute Nucleated RBC 0 10^3/ul Nucleated RBC % 0.2 Sodium 134 (133-145) mmol/L Potassium 4.1 (3.5-5.0) mmol/L Chloride 103 (101-111) mmol/L Carbon Dioxide 26 (22-32) mmol/L Anion Gap 5 (2-11) mmol/L BUN 10 (6-24) mg/dL Creatinine 0.76 (0.51-0.95) mg/dL Est GFR ( Amer) 107.3 (>60) Est GFR (Non-Af Amer) 83.5 (>60) BUN/Creatinine Ratio 13.2 (8-20) Glucose 121 H (70-100) mg/dL Lactic Acid 0.8 (0.5-2.0) mmol/L Calcium 8.9 (8.6-10.3) mg/dL Magnesium 2.0 (1.9-2.7) mg/dL Total Bilirubin 0.70 (0.2-1.0) mg/dL AST 14 (13-39) U/L ALT 13 (7-52) U/L Alkaline Phosphatase 84 (34-104) U/L C-Reactive Protein 72.02 H (< 5.00) mg/L Total Protein 6.9 (6.4-8.9) g/dL Albumin 3.9 (3.2-5.2) g/dL Globulin 3.0 (2-4) g/dL Albumin/Globulin Ratio 1.3 (1-3) Lipase < 10 L (11.0-82.0) U/L Beta HCG, Quant < 0.60 mIU/mL Urine Color Urine Appearance Urine pH (5-9) Ur Specific [place] (1.010-1.030) Urine Protein (Negative) Urine Ketones (Negative) Urine Blood (Negative) Urine Nitrate (Negative) Urine Bilirubin (Negative) Urine Urobilinogen (Negative) Ur Leukocyte Esterase (Negative) Urine Glucose (Negative) 07/04/17 Range/Units 10:56 WBC (3.5-10.8) 10^3/ul RBC (4.0-5.4) 10^6/ul Hgb (12.0-16.0) g/dl Hct (35-47) % MCV (80-97) fL MCH (27-31) pg MCHC (31-36) g/dl RDW (10.5-15) % Plt Count (150-450) 10^3/ul MPV (7.4-10.4) um3 Neut % (Auto) (38-83) % Lymph % (Auto) (25-47) % [place] % (Auto) (0-7) % Eos % (Auto) (0-6) % Baso % (Auto) (0-2) % Absolute Neuts (auto) (1.5-7.7) 10^3/ul Absolute Lymphs (auto) (1.0-4.8) 10^3/ul Absolute Monos (auto) (0-0.8) 10^3/ul Absolute Eos (auto) (0-0.6) 10^3/ul Absolute Basos (auto) (0-0.2) 10^3/ul Absolute Nucleated RBC 10^3/ul Nucleated RBC % Sodium (133-145) mmol/L Potassium (3.5-5.0) mmol/L Chloride (101-111) mmol/L Carbon Dioxide (22-32) mmol/L Anion Gap (2-11) mmol/L BUN (6-24) mg/dL Creatinine (0.51-0.95) mg/dL Est GFR ( Amer) (>60) Est GFR (Non-Af Amer) (>60) BUN/Creatinine Ratio (8-20) Glucose (70-100) mg/dL Lactic Acid (0.5-2.0) mmol/L Calcium (8.6-10.3) mg/dL Magnesium (1.9-2.7) mg/dL Total Bilirubin (0.2-1.0) mg/dL AST (13-39) U/L ALT (7-52) U/L Alkaline Phosphatase (34-104) U/L C-Reactive Protein (< 5.00) mg/L Total Protein (6.4-8.9) g/dL Albumin (3.2-5.2) g/dL Globulin (2-4) g/dL Albumin/Globulin Ratio (1-3) Lipase (11.0-82.0) U/L Beta HCG, Quant mIU/mL Urine Color Yellow Urine Appearance Clear Urine pH 6.0 (5-9) Ur Specific [place] 1.025 (1.010-1.030) Urine Protein Negative (Negative) Urine Ketones 1+ H (Negative) Urine Blood Negative (Negative) Urine Nitrate Negative (Negative) Urine Bilirubin Negative (Negative) Urine Urobilinogen Negative (Negative) Ur Leukocyte Esterase Negative (Negative) Urine Glucose Negative (Negative) Microbiology and Other Data: Microbiology 07/05/17 05:03 Aerobic Blood Culture - Preliminary Blood Venous No Growth Day 1 Anaerobic Blood Culture - Preliminary No Growth Day 1 07/06/17 03:30 Stool Gross Appearance - Final Stool 07/04/17 17:03 Aerobic Blood Culture - Preliminary Blood Venous No Growth Day 1 Anaerobic Blood Culture - Preliminary No Growth Day 1 Assess/Plan/Problems-Billing Assessment: 41 yo F with recent h/o lower abd pain that was thought to be related to UTI now with diverticulitis and organizing abscess - Patient Problems (1) Diverticulitis large intestine Comment: Pain is still significant. cont full liquids and order repeat CT. D/ w Dr. Floyd cont Zosyn Mild leukopenia t-stable, im proved appreciate surgery's consult so far no drainable collection as per IR, although the collection was [address] in AM if no improvement (2) DVT prophylaxis Comment: SCD and ambulation Status and Disposition: inpatient
[2017-07-08] MEDS ORDERED: Iohexol 300* (CONTRAST) 10 ML SDV IV ONE (10:47)
--- NOTE | 2017-07-08 12:28 | RAD ---
INDICATION: Evaluate abscess. COMPARISON: CT July 04, 2017 TECHNIQUE: Axial source images were obtained from the hemidiaphragms to the symphysis pubis following administration of oral and intravenous contrast. 93 mL Omnipaque 300 was utilized. Coronal and sagittal reconstructed images were acquired. Lung bases: The lung bases are clear. Liver: The liver is normal in size. There are no masses. There is no ductal dilatation. Gallbladder: There are no calcified gallstones. There is no evidence of wall thickening or pericholecystic fluid. Spleen: The spleen is normal in size. There are no masses. Pancreas: There is no focal pancreatic mass or ductal dilatation. Adrenal glands: There is no evidence of adrenal mass. Kidneys: The kidneys are normal in size and position. There are prompt nephrograms and there is prompt excretion bilaterally. There are no renal parenchymal masses. There is no evidence of nephrolithiasis. Adenopathy: There is no evidence of adenopathy by size criteria. Fluid collections: Perienteric inflammatory change left lower quadrant. This appears improved (see below). Vessels:There are no significant atherosclerotic changes involving the aorta. There is no focal aneurysm. The iliac vessels are normal in caliber. The IVC appears normal. GI tract: The upper GI tract is unremarkable. There is perienteric inflammatory change at the level the sigmoid colon with a a small air-containing multiloculated fluid collection inseparable from the mucosa of the sigmoid colon but arising exophytically and most consistent with a small abscess. This has decreased in size currently measuring approximately 2.7 cm in maximum transverse dimension, formerly 4 cm. The extent of the inflammatory changes also decreased. There is no free air. Pelvic organs: The uterus and adnexa appear normal Bladder: There are no bladder masses. Abdominal and pelvic soft tissues: The extraperitoneal abdominal and pelvic soft tissues appear normal.. Osseous structures: There are no acute osseous findings. Other: None IMPRESSION: MULTILOCULATED DIVERTICULAR ABSCESS THE LEVEL THE SIGMOID COLON WITH INTERVAL DECREASE IN SIZE AND DECREASE IN EXTENT OF THE ADJACENT INFLAMMATORY CHANGE
--- NOTE | 2017-07-08 13:33 | PN ---
Progress Note - Progress Note Date of Service: 07/08/17 SOAP: Subjective: Overall she feels better than she did at admission Still with some LLQ abd pain and some nausea She is having loose BM's, tolerating full liquids and voiding OK Objective: Temp Pulse Resp BP Pulse Ox 98.1 F 62 16 108/70 98 07/08/17 11:03 07/08/17 11:03 07/08/17 11:03 07/08/17 11:03 07/08/17 11:03 Intake & Output 07/06/17 07/07/17 07/08/17 07/09/17 06:59 06:59 06:59 06:59 Intake Total 2589 1541 500 100 Output Total 3975 1675 2150 150 Balance -1386 -134 -1650 -50 Intake: IV Fluids 1569 661 ABX - PIPERACILLIN 105 NS (0.9%) 1464 661 IVPB 100 100 100 ABX - PIPERACILLIN 100 100 100 Oral 920 880 400 0 Output: Urine 3975 1675 2150 150 Other: # Bowel Movements 0 Estimated Stool Amount Medium PEX: Comfortable Abd is soft and slightly distended. Bowel sounds are present. She has tenderness suprapubic and LLQ with some guarding without mass or peritoneal signs Laboratory Results - last 24 hr 07/08/17 07/08/17 05:34 05:34 WBC 3.3 L RBC 4.57 Hgb 12.8 Hct 38 MCV 82 MCH 28 MCHC 34 RDW 13 Plt Count 282 MPV 9 Neut % (Auto) 58.5 Lymph % (Auto) 30.9 [place] % (Auto) 6.6 Eos % (Auto) 2.8 Baso % (Auto) 1.2 Absolute Neuts (auto) 1.9 Absolute Lymphs (auto) 1.0 Absolute Monos (auto) 0.2 Absolute Eos (auto) 0.1 Absolute Basos (auto) 0 Absolute Nucleated RBC 0 Nucleated RBC % 0.1 Sodium 135 Potassium 3.7 Chloride 104 Carbon Dioxide 22 Anion Gap 9 BUN 5 L Creatinine 0.61 Est GFR ( Amer) 138.3 Est GFR (Non-Af Amer) 107.6 BUN/Creatinine Ratio 8.2 Glucose [address] 3/2--decrease in size of loculated air/probable abscess and less surrounding inflammation. No other acute changes noted Assessment: Sigmoid diverticulitis with localized perforation and abscess that is improving clinically and radiologically. No WBC-no signs of sepsis or peritonitis Plan: Continue IV abx and analgesia-no indication for percutaneous drainage or surgery as she continues to show improvement Will add Toradol Low residue diet-dietary consult All discussed with patient and Dr. Mcghee-she will most likely need to be here through the weekend before considering discharge on jail oral antibiotics.
[2017-07-08] MEDS ORDERED: Ketorolac INJ* 30 MG/ML 1 ML VIAL IV PUSH PRN (13:35)
[2017-07-08] MEDS: Acetaminophen TAB* 325 MG PO PRN (20:05)
[2017-07-09] MEDS: ZOSYN 3.375 GM Q8H per EXTENDED INFUSION IVPB SCH ×6 (03:59→19:56)
[2017-07-09] MEDS: Ondansetron INJ* 2 MG/ML VIAL IV PRN (03:59)
[2017-07-09 05:43] LABS: ABS Basophils 0 10^3/ul (0-0.2); ABS Eosinophils 0.1 10^3/ul (0-0.6); ABS Lymphocytes 1.1 10^3/ul (1.0-4.8); ABS Monocytes 0.3 10^3/ul (0-0.8); ABS Neutrophils 3.2 10^3/ul (1.5-7.7); ABS Nucleated RBC 0 10^3/ul; Eosinophil % 1.1 % (0-6); Hematocrit 40 % (35-47); Hemoglobin 13.6 g/dl (12.0-16.0); Lymphocyte % 23.6 % (25-47); Mean Corpuscular HGB Conc 34 g/dl (31-36); Mean Corpuscular Hemoglobin 28 pg (27-31); Mean Corpuscular Volume 83 fL (80-97); Mean Platelet Volume 8 um3 (7.4-10.4); Nucleated Red Blood Cells % 0.1; Platelet Count 315 10^3/ul (150-450); Red Blood Count 4.86 10^6/ul (4.0-5.4); Red Cell Distribution Width 13 % (10.5-15); White Blood Count 4.8 10^3/ul (3.5-10.8)
--- NOTE | 2017-07-09 08:51 | PN ---
Subjective Date of Service: 07/09/17 Interval History: abd pain is improving slowly. still no appetite. 5 loose BM's yesterday Objective Active Medications: Acetaminophen (Tylenol Tab*) 650 mg PO Q4H PRN PRN Reason: FEVER/PAIN Last Admin: 07/08/17 20:05 Dose: 650 mg Piperacillin Sod/Tazobactam (Sod 3.375 gm/ Sodium Chloride) 100 mls @ 25 mls/ hr IVPB Q8H [facility] Last Admin: 07/09/17 03:59 Dose: 25 mls/hr Lactated Ringer's (Lactated Ringers 1000 Ml Bag*) 1,000 mls @ 100 mls/hr IV ONCE ONE Stop: 07/09/17 17:38 Last Admin: 07/09/17 08:45 Dose: 100 mls/hr Ketorolac Tromethamine (Toradol Inj*) 30 mg IV PUSH Q6H PRN PRN Reason: PAIN Morphine Sulfate (Morphine Inj (Syringe)*) 2 mg IV Q4H PRN PRN Reason: PAIN - MILD Last Admin: 07/04/17 17:35 Dose: 2 mg Ondansetron HCl (Zofran Inj*) 4 mg IV Q6H PRN PRN Reason: NAUSEA Last Admin: 07/09/17 03:59 Dose: 4 mg Oxycodone/Acetaminophen (Percocet 5/325 Tab*) 1 tab PO Q4H PRN PRN Reason: PAIN Oxycodone/Acetaminophen (Percocet 5/325 Tab*) 2 tab PO Q4H PRN PRN Reason: PAIN - SEVERE Last Admin: 07/05/17 15:53 Dose: 2 tab Pharmacy Consult (Zosyn Per Pharmacy*) 1 note FOLLOW UP .ZOSYN PER PHARMACY [facility] Vital Signs - 8 hr 07/09/17 03:54 Temperature 98.1 F Pulse Rate 72 Respiratory 16 Rate Blood Pressure 100/57 (mmHg) O2 Sat by Pulse 97 Oximetry Oxygen Devices in Use Now: None Appearance: 41 yo F in nAD, AAOx3 Eyes: No Scleral Icterus, PERRLA Ears/Nose/Mouth/Throat: NL Teeth, Lips, Gums, Mucous Membranes Moist Neck: NL Appearance and Movements; NL JVP, Trachea Midline Respiratory: Symmetrical Chest Expansion and Respiratory Effort, Clear to Auscultation Cardiovascular: NL Sounds; No Murmurs; No JVD, RRR Abdominal: - - tenderness in lower abd improving, no guarding, BS+ Lymphatic: No Cervical Adenopathy Extremities: No Edema, No Clubbing, Cyanosis Skin: No Rash or Ulcers, No Nodules or Sclerosis Neurological: Alert and Oriented x 3, NL Muscle Strength and Tone Result Diagrams: 07/09/17 05:07 07/09/17 05:07 Additional Lab and Data: Lab Results 07/04/17 07/04/17 07/04/17 Range/Units 10:02 10:02 10:02 WBC 10.7 (3.5-10.8) 10^3/ul RBC 5.06 (4.0-5.4) 10^6/ul Hgb 14.3 (12.0-16.0) g/dl Hct 42 (35-47) % MCV 83 (80-97) fL MCH 28 (27-31) pg MCHC 34 (31-36) g/dl RDW 13 (10.5-15) % Plt Count 266 (150-450) 10^3/ul MPV 9 (7.4-10.4) um3 Neut % (Auto) 84.0 H (38-83) % Lymph % (Auto) 7.5 L (25-47) % [place] % (Auto) 8.0 H (0-7) % Eos % (Auto) 0.1 (0-6) % Baso % (Auto) 0.4 (0-2) % Absolute Neuts (auto) 8.9 H (1.5-7.7) 10^3/ul Absolute Lymphs (auto) 0.8 L (1.0-4.8) 10^3/ul Absolute Monos (auto) 0.9 H (0-0.8) 10^3/ul Absolute Eos (auto) 0 (0-0.6) 10^3/ul Absolute Basos (auto) 0 (0-0.2) 10^3/ul Absolute Nucleated RBC 0 10^3/ul Nucleated RBC % 0.2 Sodium 134 (133-145) mmol/L Potassium 4.1 (3.5-5.0) mmol/L Chloride 103 (101-111) mmol/L Carbon Dioxide 26 (22-32) mmol/L Anion Gap 5 (2-11) mmol/L BUN 10 (6-24) mg/dL Creatinine 0.76 (0.51-0.95) mg/dL Est GFR ( Amer) 107.3 (>60) Est GFR (Non-Af Amer) 83.5 (>60) BUN/Creatinine Ratio 13.2 (8-20) Glucose 121 H (70-100) mg/dL Lactic Acid 0.8 (0.5-2.0) mmol/L Calcium 8.9 (8.6-10.3) mg/dL Magnesium 2.0 (1.9-2.7) mg/dL Total Bilirubin 0.70 (0.2-1.0) mg/dL AST 14 (13-39) U/L ALT 13 (7-52) U/L Alkaline Phosphatase 84 (34-104) U/L C-Reactive Protein 72.02 H (< 5.00) mg/L Total Protein 6.9 (6.4-8.9) g/dL Albumin 3.9 (3.2-5.2) g/dL Globulin 3.0 (2-4) g/dL Albumin/Globulin Ratio 1.3 (1-3) Lipase < 10 L (11.0-82.0) U/L Beta HCG, Quant < 0.60 mIU/mL Urine Color Urine Appearance Urine pH (5-9) Ur Specific [place] (1.010-1.030) Urine Protein (Negative) Urine Ketones (Negative) Urine Blood (Negative) Urine Nitrate (Negative) Urine Bilirubin (Negative) Urine Urobilinogen (Negative) Ur Leukocyte Esterase (Negative) Urine Glucose (Negative) 07/04/17 Range/Units 10:56 WBC (3.5-10.8) 10^3/ul RBC (4.0-5.4) 10^6/ul Hgb (12.0-16.0) g/dl Hct (35-47) % MCV (80-97) fL MCH (27-31) pg MCHC (31-36) g/dl RDW (10.5-15) % Plt Count (150-450) 10^3/ul MPV (7.4-10.4) um3 Neut % (Auto) (38-83) % Lymph % (Auto) (25-47) % [place] % (Auto) (0-7) % Eos % (Auto) (0-6) % Baso % (Auto) (0-2) % Absolute Neuts (auto) (1.5-7.7) 10^3/ul Absolute Lymphs (auto) (1.0-4.8) 10^3/ul Absolute Monos (auto) (0-0.8) 10^3/ul Absolute Eos (auto) (0-0.6) 10^3/ul Absolute Basos (auto) (0-0.2) 10^3/ul Absolute Nucleated RBC 10^3/ul Nucleated RBC % Sodium (133-145) mmol/L Potassium (3.5-5.0) mmol/L Chloride (101-111) mmol/L Carbon Dioxide (22-32) mmol/L Anion Gap (2-11) mmol/L BUN (6-24) mg/dL Creatinine (0.51-0.95) mg/dL Est GFR ( Amer) (>60) Est GFR (Non-Af Amer) (>60) BUN/Creatinine Ratio (8-20) Glucose (70-100) mg/dL Lactic Acid (0.5-2.0) mmol/L Calcium (8.6-10.3) mg/dL Magnesium (1.9-2.7) mg/dL Total Bilirubin (0.2-1.0) mg/dL AST (13-39) U/L ALT (7-52) U/L Alkaline Phosphatase (34-104) U/L C-Reactive Protein (< 5.00) mg/L Total Protein (6.4-8.9) g/dL Albumin (3.2-5.2) g/dL Globulin (2-4) g/dL Albumin/Globulin Ratio (1-3) Lipase (11.0-82.0) U/L Beta HCG, Quant mIU/mL Urine Color Yellow Urine Appearance Clear Urine pH 6.0 (5-9) Ur Specific [place] 1.025 (1.010-1.030) Urine Protein Negative (Negative) Urine Ketones 1+ H (Negative) Urine Blood Negative (Negative) Urine Nitrate Negative (Negative) Urine Bilirubin Negative (Negative) Urine Urobilinogen Negative (Negative) Ur Leukocyte Esterase Negative (Negative) Urine Glucose Negative (Negative) Microbiology and Other Data: Microbiology 07/05/17 05:03 Aerobic Blood Culture - Preliminary Blood Venous No Growth Day 1 Anaerobic Blood Culture - Preliminary No Growth Day 1 07/06/17 03:30 Stool Gross Appearance - Final Stool 07/04/17 17:03 Aerobic Blood Culture - Preliminary Blood Venous No Growth Day 1 Anaerobic Blood Culture - Preliminary No Growth Day 1 Assess/Plan/Problems-Billing Assessment: 41 yo F with recent h/o lower abd pain that was thought to be related to UTI now with diverticulitis and organizing abscess - Patient Problems (1) Diverticulitis large intestine Comment: Pain is improving cont full liquids . cont Zosyn Mild leukopenia improved appreciate surgery's consult so far no drainable collection as per IR, although the collection was 4 cm initiall, repeat CT shows collection is down to 2.7 cm on 07/08/17 Labs indicate acidosis, I suspect pt is dehydrated. will start IVF repeat BMP today at 2 PM (2) DVT prophylaxis Comment: SCD and ambulation (3) LFT elevation Comment: slight, suspect due to dehydration IVf Status and Disposition: inpatient
[2017-07-09] MEDS ORDERED: NS 0.45% 1000 ML BAG* 1,000 ML IV SCH (12:00)
--- NOTE | 2017-07-09 13:05 | PN ---
Progress Note - Progress Note Date of Service: 07/09/17 SOAP: Subjective: She c/o lower abdominal pain/tenderness. No N/V. +D. +flatus. No appetite. Denies chills. Using Tylenol only for pain which helps. Objective: Vital Signs Temp 97.3 F 07/09/17 11:52 Pulse 75 07/09/17 11:52 Resp 12 07/09/17 11:52 BP 101/60 07/09/17 11:52 Pulse Ox 97 07/09/17 11:52 Gen: NAD; lying in bed Abd: softly distended; tender LLQ. Intake & Output 07/08/17 07/09/17 07/09/17 18:59 06:59 18:59 Intake Total 100 725 Output Total 1400 650 Balance -1300 75 Intake: IVPB 100 105 ABX - PIPERACILLIN 100 105 Oral 0 620 Output: Urine 1400 650 Laboratory Results - last 24 hr 07/09/17 07/09/17 05:07 05:07 WBC 4.8 RBC 4.86 Hgb 13.6 Hct 40 MCV 83 MCH 28 MCHC 34 RDW 13 Plt Count 315 MPV 8 Neut % (Auto) 67.6 Lymph % (Auto) 23.6 L [place] % (Auto) 6.8 Eos % (Auto) 1.1 Baso % (Auto) 0.9 Absolute Neuts (auto) 3.2 Absolute Lymphs (auto) 1.1 Absolute Monos (auto) 0.3 Absolute Eos (auto) 0.1 Absolute Basos (auto) 0 Absolute Nucleated RBC 0 Nucleated RBC % 0.1 Sodium 132 L Potassium 4.0 Chloride 103 Carbon Dioxide 16 L Anion Gap 13 H BUN 7 Creatinine 0.65 Est GFR ( Amer) 128.6 Est GFR (Non-Af Amer) 100.0 BUN/Creatinine Ratio 10.8 Glucose 61 L Calcium 8.7 Total Bilirubin 0.40 AST 79 H ALT 60 H Alkaline Phosphatase 115 H C-Reactive Protein 14.89 H Total Protein 7.1 Albumin 3.9 Globulin 3.2 Albumin/Globulin Ratio 1.2 Assessment: Sigmoid diverticulitis with localized perforation and abscess that is improving clinically and radiologically. Plan: Continue IV --no indication for surgical intervention. Low residue diet-dietary consult She will most likely need to be here through the weekend before considering discharge on usp oral antibiotics.
[2017-07-09 15:13] LABS: EGFR Non-African American 87.4 (>60)
[2017-07-10] MEDS: ZOSYN 3.375 GM Q8H per EXTENDED INFUSION IVPB SCH ×2 (03:24)
[2017-07-10 05:32] LABS: ABS Basophils 0 10^3/ul (0-0.2); ABS Eosinophils 0.1 10^3/ul (0-0.6); ABS Lymphocytes 1.1 10^3/ul (1.0-4.8); ABS Monocytes 0.4 10^3/ul (0-0.8); ABS Neutrophils 4.6 10^3/ul (1.5-7.7); ABS Nucleated RBC 0 10^3/ul; Eosinophil % 0.8 % (0-6); Hematocrit 41 % (35-47); Hemoglobin 13.9 g/dl (12.0-16.0); Mean Corpuscular HGB Conc 34 g/dl (31-36); Mean Corpuscular Hemoglobin 28 pg (27-31); Mean Corpuscular Volume 83 fL (80-97); Mean Platelet Volume 8 um3 (7.4-10.4); Nucleated Red Blood Cells % 0; Platelet Count 347 10^3/ul (150-450); Red Blood Count 4.98 10^6/ul (4.0-5.4); Red Cell Distribution Width 13 % (10.5-15); White Blood Count 6.2 10^3/ul (3.5-10.8)
[2017-07-10 05:49] LABS: EGFR Non-African American 105.6 (>60)
[2017-07-10] MEDS ORDERED: Omeprazole CAP* 20 MG PO ONE (07:23)
[2017-07-10] MEDS ORDERED: Calcium Carbonate CHEW TAB* 500 MG (TUMS) PO PRN (07:23)
[2017-07-10] MEDS ORDERED: Calcium Carbonate CHEW TAB* 500 MG (TUMS) ONE (07:29)
[2017-07-10] MEDS ORDERED: Omeprazole CAP* 20 MG ONE (07:29)
[2017-07-10] MEDS ORDERED: D5LR 1000 ML BAG* 1,000 ML IV SCH (08:00)
[2017-07-10] MEDS ORDERED: Sodium Citrate/Citric Acid* 15 ML UDC PO ONE (10:01)
[2017-07-10] MEDS: PIPERACILLIN IVPB SCH ×6 (10:02→20:56)
[2017-07-10] MEDS: TAZOBACTAM IVPB SCH ×6 (10:02→20:56)
--- NOTE | 2017-07-10 10:06 | PN ---
Progress Note - Progress Note Date of Service: 07/10/17 SOAP: Subjective: Better today. No N/V and ate her breakfast. Pain in LLQ still but not even taking Tylenol for that. Diarrhea 3-4x/day; watery. Objective: Vital Signs Temp 98.3 F 07/10/17 07:32 Pulse 76 07/10/17 07:32 Resp 14 07/10/17 07:32 BP 99/68 07/10/17 07:32 Pulse Ox 98 07/10/17 07:32 Gen: sitting in chair; NAD Abd: soft; mod tender LLQ (improved exam) Intake & Output 07/09/17 07/10/17 07/10/17 18:59 06:59 18:59 Intake Total 737 684 5898 Output Total 600 1950 Balance -150 -1050 2320 Intake: IV Fluids 2005 0.45 NS 2005 IVPB 314 ABX - PIPERACILLIN 314 Oral 450 900 Output: Urine 600 1950 Other: # Voids 1 Laboratory Results - last 24 hr 07/09/17 07/09/17 07/10/17 14:46 14:46 04:53 WBC 6.2 RBC 4.98 Hgb 13.9 Hct 41 MCV 83 MCH 28 MCHC 34 RDW 13 Plt Count 347 MPV 8 Neut % (Auto) 74.8 Lymph % (Auto) 18.0 L [place] % (Auto) 5.8 Eos % (Auto) 0.8 Baso % (Auto) 0.6 Absolute Neuts (auto) 4.6 Absolute Lymphs (auto) 1.1 Absolute Monos (auto) 0.4 Absolute Eos (auto) 0.1 Absolute Basos (auto) 0 Absolute Nucleated RBC 0 Nucleated RBC % 0 Patient Temperature ABG pH ABG pH (Temp Correct) ABG pCO2 ABG pCO2 (Temp Corrct ABG pO2 ABG pO2 (Temp Correct ABG HCO3 ABG O2 Saturation ABG Base Excess Respiration Rate Ventilator Type Vent Mode FiO2 Inspiratory Time PEEP Pressure Support Pressure Control EPAP IPAP BiPAP Sodium 132 L Potassium 3.9 Chloride 103 Carbon Dioxide 16 L Anion Gap 13 H BUN 7 Creatinine 0.73 Est GFR ( Amer) 112.4 Est GFR (Non-Af Amer) 87.4 BUN/Creatinine Ratio 9.6 Glucose 78 Lactic Acid 0.6 Calcium 8.8 Total Bilirubin AST ALT Alkaline Phosphatase Total Protein Albumin Globulin Albumin/Globulin Ratio 03/04/18 03/04/18 03/04/18 04:53 08:35 09:36 WBC RBC Hgb Hct MCV MCH MCHC RDW Plt Count MPV Neut % (Auto) Lymph % (Auto) [place] % (Auto) Eos % (Auto) Baso % (Auto) Absolute Neuts (auto) Absolute Lymphs (auto) Absolute Monos (auto) Absolute Eos (auto) Absolute Basos (auto) Absolute Nucleated RBC Nucleated RBC % Patient Temperature Not Reportable ABG pH 7.29 L ABG pH (Temp Correct) Not Reportable ABG pCO2 24 L ABG pCO2 (Temp Corrct Not Reportable ABG pO2 107 H ABG pO2 (Temp Correct Not Reportable ABG HCO3 14.7 L ABG O2 Saturation 99.5 H ABG Base Excess -13.1 L Respiration Rate Not Reportable Ventilator Type Not Reportable Vent Mode Not Reportable FiO2 21 Inspiratory Time Not Reportable PEEP Not Reportable Pressure Support Not Reportable Pressure Control Not Reportable EPAP Not Reportable IPAP Not Reportable BiPAP Not Reportable Sodium 133 Potassium 4.1 Chloride 106 Carbon Dioxide 13 L* Anion Gap 14 H BUN 5 L Creatinine 0.62 Est GFR ( Amer) 135.8 Est GFR (Non-Af Amer) 105.6 BUN/Creatinine Ratio 8.1 Glucose 73 Lactic Acid 0.8 Calcium 8.7 Total Bilirubin 0.40 AST 52 H ALT 55 H Alkaline Phosphatase 108 H Total Protein 7.0 Albumin 3.9 Globulin 3.1 Albumin/Globulin Ratio 1.3 Assessment: Sigmoid diverticulitis with localized perforation and abscess that is improving clinically and radiologically. Metabolic acidosis likely due to GI losses. Plan: As per Hospitalist. Cont abx (po or IV) Cont diet Plan for outpt colonoscopy after episode resolves, per Dr. Floyd.
--- NOTE | 2017-07-10 11:03 | PN ---
Subjective Date of Service: 07/10/17 Interval History: Pt feels much better. Her pain is 4/10 without any pain meds. Had 6 loose stools in the past 24H Had breakfast today and feels good. Omeprazole started yesterday helped with GERD symptoms Objective Active Medications: Acetaminophen (Tylenol Tab*) 650 mg PO Q4H PRN PRN Reason: FEVER/PAIN Last Admin: 07/08/17 20:05 Dose: 650 mg Calcium Carbonate (Tums*) 500 mg PO Q4H PRN PRN Reason: discomfort Last Admin: 07/10/17 07:31 Dose: 500 mg Citric Acid/Sodium Citrate (Bicitra*) 15 ml PO TID ON LICENSE OF [facility] Piperacillin Sod/Tazobactam (Sod 3.375 gm/ Sodium Chloride) 100 mls @ 200 mls/ hr IVPB Q6H [facility] Last Admin: 07/10/17 10:02 Dose: 200 mls/hr Dextrose/Lactated Ringer's (D5lr 1000 Ml Bag*) 1,000 mls @ 100 mls/hr IV PER RATE ON LICENSE OF [facility] Ketorolac Tromethamine (Toradol Inj*) 30 mg IV PUSH Q6H PRN PRN Reason: PAIN Lactobacillus Rhamnosus (Culturelle*) 1 cap PO BID ON LICENSE OF [facility] Morphine Sulfate (Morphine Inj (Syringe)*) 2 mg IV Q4H PRN PRN Reason: PAIN - MILD Last Admin: 07/04/17 17:35 Dose: 2 mg Omeprazole (Prilosec Cap*) 20 mg PO DAILY@0600 ON LICENSE OF [facility] Ondansetron HCl (Zofran Inj*) 4 mg IV Q6H PRN PRN Reason: NAUSEA Last Admin: 07/09/17 03:59 Dose: 4 mg Oxycodone/Acetaminophen (Percocet 5/325 Tab*) 1 tab PO Q4H PRN PRN Reason: PAIN Oxycodone/Acetaminophen (Percocet 5/325 Tab*) 2 tab PO Q4H PRN PRN Reason: PAIN - SEVERE Last Admin: 07/05/17 15:53 Dose: 2 tab Pharmacy Consult (Zosyn Per Pharmacy*) 1 note FOLLOW UP .ZOSYN PER PHARMACY ON LICENSE OF [facility] Vital Signs - 8 hr 07/10/17 07/10/17 07/10/17 03:19 07:32 08:00 Temperature 98.3 F 98.3 F Pulse Rate 64 76 Respiratory 20 14 16 Rate Blood Pressure 108/59 99/68 (mmHg) O2 Sat by Pulse 97 98 Oximetry Oxygen Devices in Use Now: None Appearance: 41 yo F in nAd, AAox3 Eyes: No Scleral Icterus, PERRLA Ears/Nose/Mouth/Throat: NL Teeth, Lips, Gums, Mucous Membranes Moist Neck: NL Appearance and Movements; NL JVP, Trachea Midline Respiratory: Symmetrical Chest Expansion and Respiratory Effort, Clear to Auscultation Cardiovascular: NL Sounds; No Murmurs; No JVD, RRR Abdominal: No Hepatosplenomegaly, - - mild suprapubic tenderness, no rebound, no guarding, BS+ Lymphatic: No Cervical Adenopathy Extremities: No Edema, No Clubbing, Cyanosis Skin: No Rash or Ulcers, No Nodules or Sclerosis Neurological: Alert and Oriented x 3, NL Muscle Strength and Tone Result Diagrams: 07/10/17 04:53 07/10/17 04:53 Additional Lab and Data: Lab Results 07/04/17 07/04/17 07/04/17 Range/Units 10:02 10:02 10:02 WBC 10.7 (3.5-10.8) 10^3/ul RBC 5.06 (4.0-5.4) 10^6/ul Hgb 14.3 (12.0-16.0) g/dl Hct 42 (35-47) % MCV 83 (80-97) fL MCH 28 (27-31) pg MCHC 34 (31-36) g/dl RDW 13 (10.5-15) % Plt Count 266 (150-450) 10^3/ul MPV 9 (7.4-10.4) um3 Neut % (Auto) 84.0 H (38-83) % Lymph % (Auto) 7.5 L (25-47) % [place] % (Auto) 8.0 H (0-7) % Eos % (Auto) 0.1 (0-6) % Baso % (Auto) 0.4 (0-2) % Absolute Neuts (auto) 8.9 H (1.5-7.7) 10^3/ul Absolute Lymphs (auto) 0.8 L (1.0-4.8) 10^3/ul Absolute Monos (auto) 0.9 H (0-0.8) 10^3/ul Absolute Eos (auto) 0 (0-0.6) 10^3/ul Absolute Basos (auto) 0 (0-0.2) 10^3/ul Absolute Nucleated RBC 0 10^3/ul Nucleated RBC % 0.2 Sodium 134 (133-145) mmol/L Potassium 4.1 (3.5-5.0) mmol/L Chloride 103 (101-111) mmol/L Carbon Dioxide 26 (22-32) mmol/L Anion Gap 5 (2-11) mmol/L BUN 10 (6-24) mg/dL Creatinine 0.76 (0.51-0.95) mg/dL Est GFR ( Amer) 107.3 (>60) Est GFR (Non-Af Amer) 83.5 (>60) BUN/Creatinine Ratio 13.2 (8-20) Glucose 121 H (70-100) mg/dL Lactic Acid 0.8 (0.5-2.0) mmol/L Calcium 8.9 (8.6-10.3) mg/dL Magnesium 2.0 (1.9-2.7) mg/dL Total Bilirubin 0.70 (0.2-1.0) mg/dL AST 14 (13-39) U/L ALT 13 (7-52) U/L Alkaline Phosphatase 84 (34-104) U/L C-Reactive Protein 72.02 H (< 5.00) mg/L Total Protein 6.9 (6.4-8.9) g/dL Albumin 3.9 (3.2-5.2) g/dL Globulin 3.0 (2-4) g/dL Albumin/Globulin Ratio 1.3 (1-3) Lipase < 10 L (11.0-82.0) U/L Beta HCG, Quant < 0.60 mIU/mL Urine Color Urine Appearance Urine pH (5-9) Ur Specific [place] (1.010-1.030) Urine Protein (Negative) Urine Ketones (Negative) Urine Blood (Negative) Urine Nitrate (Negative) Urine Bilirubin (Negative) Urine Urobilinogen (Negative) Ur Leukocyte Esterase (Negative) Urine Glucose (Negative) 07/04/17 Range/Units 10:56 WBC (3.5-10.8) 10^3/ul RBC (4.0-5.4) 10^6/ul Hgb (12.0-16.0) g/dl Hct (35-47) % MCV (80-97) fL MCH (27-31) pg MCHC (31-36) g/dl RDW (10.5-15) % Plt Count (150-450) 10^3/ul MPV (7.4-10.4) um3 Neut % (Auto) (38-83) % Lymph % (Auto) (25-47) % [place] % (Auto) (0-7) % Eos % (Auto) (0-6) % Baso % (Auto) (0-2) % Absolute Neuts (auto) (1.5-7.7) 10^3/ul Absolute Lymphs (auto) (1.0-4.8) 10^3/ul Absolute Monos (auto) (0-0.8) 10^3/ul Absolute Eos (auto) (0-0.6) 10^3/ul Absolute Basos (auto) (0-0.2) 10^3/ul Absolute Nucleated RBC 10^3/ul Nucleated RBC % Sodium (133-145) mmol/L Potassium (3.5-5.0) mmol/L Chloride (101-111) mmol/L Carbon Dioxide (22-32) mmol/L Anion Gap (2-11) mmol/L BUN (6-24) mg/dL Creatinine (0.51-0.95) mg/dL Est GFR ( Amer) (>60) Est GFR (Non-Af Amer) (>60) BUN/Creatinine Ratio (8-20) Glucose (70-100) mg/dL Lactic Acid (0.5-2.0) mmol/L Calcium (8.6-10.3) mg/dL Magnesium (1.9-2.7) mg/dL Total Bilirubin (0.2-1.0) mg/dL AST (13-39) U/L ALT (7-52) U/L Alkaline Phosphatase (34-104) U/L C-Reactive Protein (< 5.00) mg/L Total Protein (6.4-8.9) g/dL Albumin (3.2-5.2) g/dL Globulin (2-4) g/dL Albumin/Globulin Ratio (1-3) Lipase (11.0-82.0) U/L Beta HCG, Quant mIU/mL Urine Color Yellow Urine Appearance Clear Urine pH 6.0 (5-9) Ur Specific [place] 1.025 (1.010-1.030) Urine Protein Negative (Negative) Urine Ketones 1+ H (Negative) Urine Blood Negative (Negative) Urine Nitrate Negative (Negative) Urine Bilirubin Negative (Negative) Urine Urobilinogen Negative (Negative) Ur Leukocyte Esterase Negative (Negative) Urine Glucose Negative (Negative) Microbiology and Other Data: Microbiology 07/05/17 05:03 Aerobic Blood Culture - Preliminary Blood Venous No Growth Day 1 Anaerobic Blood Culture - Preliminary No Growth Day 1 07/06/17 03:30 Stool Gross Appearance - Final Stool 07/04/17 17:03 Aerobic Blood Culture - Preliminary Blood Venous No Growth Day 1 Anaerobic Blood Culture - Preliminary No Growth Day 1 Assess/Plan/Problems-Billing Assessment: 41 yo F with recent h/o lower abd pain that was thought to be related to UTI now with diverticulitis and organizing abscess - Patient Problems (1) Diverticulitis large intestine Comment: Pain is improving , will recommend soft diet and start regular diet order-let pt choose her soft version of the meals she'd like. cont Zosyn Mild leukopenia improved appreciate surgery's consult so far no drainable collection as per IR, although the collection was 4 cm initially, repeat CT shows collection is down to 2.7 cm on 07/08/17 (2) DVT prophylaxis Comment: SCD and ambulation (3) LFT elevation Comment: slight, suspect due to dehydration IVf (4) Metabolic acidosis Comment: Chloride WNL, lactic WNL, Ph 7.29-pt asymptomatic suspect due to bicarb looses with GI/diarrhea. Cont IVF-change to D5LR and start Bicitra Status and Disposition: inpatient
[2017-07-10] MEDS: Lactobacillus Acidophilu (GG)* 1 CAP CAP PO SCH ×2 (11:36→20:52)
[2017-07-10] MEDS: Sodium Citrate/Citric Acid* 15 ML UDC PO SCH ×2 (14:36→20:52)
[2017-07-10] MEDS: D5LR 1000 ML BAG* 1,000 ML IV SCH (22:49)
[2017-07-11] MEDS: PIPERACILLIN IVPB SCH ×4 (03:18→09:06)
[2017-07-11] MEDS: TAZOBACTAM IVPB SCH ×4 (03:18→09:06)
[2017-07-11 05:22] LABS: Hematocrit 36 % (35-47); Hemoglobin 12.6 g/dl (12.0-16.0); Mean Corpuscular HGB Conc 35 g/dl (31-36); Mean Corpuscular Hemoglobin 28 pg (27-31); Mean Corpuscular Volume 81 fL (80-97); Mean Platelet Volume 8 um3 (7.4-10.4); Platelet Count 273 10^3/ul (150-450); Red Blood Count 4.45 10^6/ul (4.0-5.4); Red Cell Distribution Width 13 % (10.5-15); White Blood Count 4.3 10^3/ul (3.5-10.8)
[2017-07-11 05:38] LABS: EGFR Non-African American 107.6 (>60)
[2017-07-11] MEDS ORDERED: Omeprazole CAP* 20 MG PO SCH (06:00)
[2017-07-11] MEDS ORDERED: Potassium Chlor TAB* 20 MEQ TAB.ER PO ONE (07:14)
[2017-07-11] MEDS: Lactobacillus Acidophilu (GG)* 1 CAP CAP PO SCH (09:12)
[2017-07-11] MEDS: Sodium Citrate/Citric Acid* 15 ML UDC PO SCH (09:17)
[2017-07-11] MEDS: D5LR 1000 ML BAG* 1,000 ML IV SCH (10:44)
[2017-07-11 14:21] VITALS: BP 105/62
--- NOTE | 2017-07-11 14:35 | PN ---
Progress Note - Progress Note Date of Service: 07/11/17 SOAP: Subjective: Doing much better, less abdominal pain. Tolerating diet, still loose BMs, but less frequent. Denies fever or chills. Objective: Awake and alert, in NAD VSS, afebrile Abdomen soft, ND. Mild LLQ/suprapubic tenderness, no guarding or rigidity. No rebound. I/O's noted Assessment: Sigmoid diverticulitis with possible microperforation/abscess, doing well on IV/ PO Abx Plan: Discharge home today on Augmentin and Diflucan Low residue diet F/U with [facility] this Tuesday
--- NOTE | 2017-07-11 18:16 | PN ---
Progress Note - Progress Note Date of Service: 07/11/17 SOAP: Subjective: [Patient seen and examined at bedside. Appears well. States she is doing much better. Reports had a repeat CT scan showing the abscess has decreased in size. Reports her pain has mild and as a 2/10. Mentions she hasn't needed any pain medication for the past 3 days. Denies N/V. States she had two loose bowel movements this morning. Denies blood in her stool. Denies N/V. Denies pain with urination or blood in her urine. Reports her appetite is good and has tolerated a soft diet. Has also been ambulating independently. She states she is going home later today. ] Objective: [ Selected Entries 07/11/17 07/11/17 07/11/17 03:26 07:39 11:32 Temperature 97.9 F 98.9 F 97.8 F Pulse Rate 61 52 53 Respiratory 16 16 16 Rate Blood Pressure 102/61 114/61 105/62 (mmHg) Blood Pressure 70 74 73 Mean O2 Sat by Pulse 99 97 98 Oximetry Intake & Output 07/11/17 07/11/17 07/11/17 06:59 14:59 22:59 Intake Total 300 1114 Output Total 600 1800 Balance -300 -686 Intake: IV Fluids 114 ABX - PIPERACILLIN 114 Oral 300 1000 Output: Urine 600 1800 General: Pleasant middle aged female laying supine in hospital bed. Alert and orientated. Converses appropriately. NAD. Cardiac: RRR. No mumurs, rubs or gallops appreciated. Pulmonary: No accessory muscle use. CTA throughout in the anterior position. No rhonchi, wheezes or rales. Abdomen: Non-distended abdomen. No hernias appreciated. + BS heard throughout. Very mild tenderness to palpation to the LLQ. No HSM. Extremities: No clubbing or cyanosis. No edema appreciated. 2+ pulses dorsalis pedis b/l Laboratory Tests 07/11/17 04:39 WBC 4.3 RBC 4.45 Hgb 12.6 Hct 36 MCV 81 MCH 28 MCHC 35 RDW 13 Plt Count 273 MPV 8 ] Assessment: [ Mrs. Thomas appears to be doing very well. Pain is minimal and manageable. Patient is tolerating her diet and has no issues with her bowel movements. Repeat CT scan shows the diverticular abscess is resolving. Vitals are stable and patient is afebrile. CBC WNL. ] Plan: [Discharge to home later today. Start oral antibiotic therapy (Augmentin). Follow up with surgical services in about one week. ] <Ivana Duran - Last Filed: 07/11/17 18:07> - Progress Note SOAP: Subjective: [] Objective: [] Assessment: [] Plan: [] <Gene Gutierrez - Last Filed: 07/12/17 08:10>
--- NOTE | 2017-07-12 13:06 | DS ---
CC: Dr. Fuentes; Dr. Floyd * DISCHARGE SUMMARY: DATE OF ADMISSION: 07/04/17 DATE OF DISCHARGE: 07/11/17 PRIMARY CARE PROVIDER: Dr. Fuentes. DISCHARGE DIAGNOSES: 1. Acute diverticulitis complicated by microperforation and diverticular abscess, was 4 cm in diameter. 2. Metabolic acidosis as a complication of longstanding diarrhea that resolved by the time of discharge. CONSULTATIONS DURING THE HOSPITAL STAY: Included Dr. Floyd from General Surgery. LABORATORY DATA ON THE DAY OF DISCHARGE: Included: On 07/11/17, sodium of 135 , potassium 3.3, chloride 104, carbon dioxide 25, BUN 4, creatinine 0.61. Liver function tests were unremarkable and C-reactive protein was 6.38. C- reactive protein at admission was . CBC showed a white blood cell count of 4.3, hemoglobin 12.6, hematocrit of 36, and platelets of 273,000. ABG documented on 07/10/17 showed pH of 7.29, PCO2 of 24, PO2 of 107, bicarb of 14.7. The patient had 2 CT of abdomen and pelvis obtained and the initial one obtained on 07/04/17, impression: "Sigmoid perienteric inflammatory change with organizing diverticular abscess." Repeat CT of the abdomen and pelvis performed on 07/08/17, impression: "Multiloculated diverticular abscess in the level of the sigmoid colon with interval decrease in the size and decrease in the extent of the adjacent inflammatory change." The abscess was noted to be at that point 2.7 cm. Transvaginal ultrasound obtained on 07/04/17, impression: "There is a vague heterogenicity of the myometrium particularly at the posterior mid level myometrium. This could be an ill-defined uterine fibroid or possibly adenomyositis. If this correlates with the patient's clinical presentation, more symptom characterization is going to be acquired with contrast enhanced MRI of the pelvis on a nonemergent basis. Otherwise, the pelvic ultrasound is normal and age appropriate." HOSPITALIZATION COURSE: Candy Thomas is a 41-year-old female with no significant past medical history who presented with complaints of fever, abdominal pain, nausea and vomiting on 07/04/17. Prior to her admission, she had approximately 2 months of duration of symptoms of lower abdominal pain that was felt to be related to UTI, and was couple of times treated during the 2- month period with antibiotics. The CT of abdomen and pelvis at admission showed diverticular abscess of 4 cm and sigmoid diverticulitis. Unfortunately, the abscess was not easily amenable for IR intervention. At that point, she was treated medically with intravenous Zosyn and Surgery was following with the patient as a artist consultant. The patient's hospitalization was prolonged due to symptoms of nausea, poor appetite, and abdominal pain that continued throughout her hospital stay. The patient still has mild tenderness in the lower abdomen by the time of discharge. Couple of days prior to the patient's discharge, the patient was noted to have more metabolic acidosis on her basic metabolic panel, an ABG showed metabolic acidosis that was nonanion gap. The more likely etiology of the patient's normokalemic nonanion gap metabolic acidosis was due to diarrhea. Up to the day prior to discharge, the patient had approximately 6 large loose bowel movements a day. On 07/10/17, the patient was restarted on her IV fluids and given Bicitra . She did very well and her appetite improved dramatically after intravenous fluids started. She was able to eat almost regular meals by the time of discharge and the nausea resolved. With that, her metabolic acidosis also resolved and Bicitra was discontinued by the time of discharge. Please also note that the patient had transient elevation of the liver function tests most likely to dehydration. She was somewhat resistant to intravenous fluids and she prefers to continue drinking significant amount of liquids, which proved during that time to be likely not enough to keep her hydrated due to diarrhea. By the time of discharge, she had a couple of stools within the past 24 hours, both of them loose. She had mild lower abdominal tenderness, but no pain. She is tolerating a low residue diet. At discharge, the patient is recommended to have a colonoscopy done as soon as it is okay by Dr. Floyd, probably within the next 4 to 6 weeks. The patient needs to continue antibiotics for approximately 3 weeks after discharge and as directed to be a longer duration by Dr. Floyd. The patient needs to follow up with Dr. Fuentes in approximately 4 to [address] Floyd in approximately 4 to 7 days. She was recommended to take probiotic while on oral antibiotics. PHYSICAL EXAMINATION: At the time of discharge, blood pressure 102/61, heart rate of 61 and regular, respiratory rate 16, oxygen saturation 99% on room air, temperature 97.9. General: The patient is a pleasant 41-year-old female, who is in no acute distress. Alert, awake, and oriented x3. HEENT: Head atraumatic and normocephalic. Eyes: Pupils are equal and reactive to light and accommodation. Oropharynx clear, mucosa moist. Neck: Supple. No JVD. No bruits bilaterally. Cardiovascular: Regular rate and rhythm. No murmur. Respiratory: Clear to auscultation bilaterally. Abdomen is soft and minimally tender in the bilateral lower quadrants and suprapubic area with no rebound, no guarding. Bowel sounds are present in all 4 quadrants. Extremities: There is no edema. Pulses are +2 bilaterally. No clubbing or cyanosis. Please note that this is a short summary of the patient's hospitalization. Please refer to further medical records for details. TIME SPENT: Approximately 45 minutes was spent in preparation of patient's discharge. [id number]/[facility] #: [id number] [facility]PITALDavis
== END 2017-07-11 16:05 | disposition home or self-care (01) | DRG 244 ==
LOC: ED 08:31 → SSU 16:57
PROVIDERS: ADMIT Internal Medicine; ATTEND Internal Medicine
DX: K57.20 Diverticulitis of large intestine with perforation and abscess without bleeding (principal); E87.2 Acidosis; I95.9 Hypotension, unspecified; E03.8 Other specified hypothyroidism; M41.9 Scoliosis, unspecified; Z82.49 Family history of ischemic heart disease and other diseases of the circulatory system; Z83.3 Family history of diabetes mellitus; Z82.0 Family history of epilepsy and other diseases of the nervous system; Z80.3 Family history of malignant neoplasm of breast; Z91.09 Other allergy status, other than to drugs and biological substances; Z72.89 Other problems related to lifestyle; R19.7 Diarrhea, unspecified; E86.0 Dehydration; D72.819 Decreased white blood cell count, unspecified; R79.89 Other specified abnormal findings of blood chemistry; R11.0 Nausea
CPT/HCPCS: 36415; 36600; 74177; 76830; 80048; 80053; 81003; 82803; 83605; 83690; 83735; 84702; 85025; 85027; 85610; 86140; 87040; 87045; 87046; 87480; 87491; 87510; 87591; 87661; 87899; 94760; 99283; A9270-GY; J0780; J1170; J2270; J2405; J2543; J2765; J3490; Q9967

== ENCOUNTER 2017-07-22 09:32 | Inpatient (IN) | payer BC ==
--- NOTE | 2017-07-22 10:20 | ED ---
Abdominal Pain/Female - HPI Summary HPI Summary: 41 female presents to ED with complaints of lower abdominal pain that began this morning and has been worsening. States she was admitted to the hospital on 07/04 for diverticulitis with abscess. Was treated with IV antibiotics. On second CT image it was noted that the abscess shrunk in size, by half. Was discharged on Augmentin. Has not had any problem until last night and this morning when she began feeling slightly constipated and then had significant pain that worsened over time. States it was lower and diffuse however got worse and is now throughout abdomen. Denies any nausea or vomiting. No fever/chills. Denies urinary or genitalia symptoms. Also denies blood in stool, thinks she had some slight red blood when wiping due to "straining while having bowel movement" this morning, nothing since. No other complaints. Has not taken anything for pain. - History of Current Complaint Chief Complaint: EDDavid Stated Complaint: ABD PAIN Time Seen by Provider: 07/22/17 09:42 Hx Obtained From: Patient Hx Last Menstrual Period: 12/15/16 ?: No Onset/Duration: Sudden Onset, Lasting Hours, Still Present Timing: Constant Severity Initially: Moderate Severity Currently: Severe Pain Intensity: 9 Pain Scale Used: 0-10 Numeric Location: Diffuse, Discrete At: RLQ, Discrete At: LLQ, Suprapubic, Umbilical Radiates: Yes Radiates to: Back - lower Character: Sharp Aggravating Factor(s): Movement Alleviating Factor(s): Nothing, Position Associated Signs and Symptoms: Positive: Negative. Negative: Fever, Constipation, Urinary Symptoms, Decreased Appetite, Vaginal Bleeding, Vaginal Discharge, Nausea, Vomiting, Diarrhea Allergies/Adverse Reactions: Allergies Allergy/AdvReac Type Severity Reaction Status Date / Time magnesium Allergy Hives Verified 07/22/17 09:36 PMH/Surg Hx/FS Hx/Imm Hx Endocrine/Hematology History: Denies: Hx Anticoagulant Therapy, Hx Blood Disorders, Hx Diabetes, Hx Thyroid Disease, Hx Anemia Cardiovascular History: Denies: Hx Hypertension Respiratory History: Reports: Hx Seasonal Allergies GI History: Reports: Hx Diverticulosis - diverticulitis with abscess, Other GI Disorders - appendicitis in 2016 Denies: Hx Crohn's Disease, Hx Gall Bladder Disease, Hx Gastroesophageal Reflux Disease, Hx Gastrointestinal Bleed, Hx Hiatal Hernia, Hx Irritable Bowel , Hx Obstructive Bowel, Hx Ulcer History: Denies: Hx Renal Disease Musculoskeletal History: Reports: Hx Scoliosis - pt said her spine "is crooked" Sensory History: Reports: Hx Contacts or Glasses Denies: Hx Hearing Aid Opthamlomology History: Reports: Hx Contacts or Glasses - Cancer History Cancer Type, Location and Year: 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 appy jan 2016 Hx Anesthesia Reactions: No - Immunization History Date of Influenza Vaccine: 02/2017 Immunizations Up to Date: Yes Infectious Disease History: No Infectious Disease History: Reports: Hx Shingles - 3yrs ago Denies: History Other Infectious Disease, Traveled Outside the [place] in Last 30 Days - Family History Known Family History: Positive: Hypertension - father, Diabetes, Other - Epilepsy (sister) Negative: Cardiac Disease - Social History Alcohol Use: Rare Hx Substance Use: No Substance Use Type: Reports: None Hx Tobacco Use: No Smoking Status (MU): Never Smoked Tobacco Have You Smoked in the Last Year: No Review of Systems Constitutional: Negative Cardiovascular: Negative Respiratory: Negative Positive: Abdominal Pain Neurological: Negative All Other Systems Reviewed And Are Negative: Yes Physical Exam Triage Information Reviewed: Yes Vital Signs On Initial Exam: Initial Vitals Temp Pulse Resp BP Pulse Ox 97.6 F 78 14 113/58 99 07/22/17 09:36 07/22/17 09:36 07/22/17 09:36 07/22/17 09:36 07/22/17 09:36 Vital Signs Reviewed: Yes Appearance: Positive: Well-Appearing, No Pain Distress, Well-Nourished Skin: Positive: Warm, Skin Color Reflects Adequate Perfusion, Dry. Negative: Cold, Numb, Cyanosis @, Pale, Erythema @ Head/Face: Positive: Normal Head/Face Inspection Neck: Positive: Supple, Nontender Respiratory/Lung Sounds: Positive: Clear to Auscultation, Breath Sounds Present. Negative: Rales, Rhonchi, Wheezes Cardiovascular: Positive: Normal, RRR, Pulses are Symmetrical in both Upper and Lower Extremities. Negative: Murmur, Rub Abdomen Description: Positive: No Organomegaly, Soft, Peritoneal Signs - pain with percussion, Other: - diffuse abdominal pain on palpation, worse on right lower/mid abdomen. + rebound. Negative: Bruit, CVA Tenderness (R), CVA Tenderness (L), Distended, Guarding, McBurney's Point Tenderness Bowel Sounds: Positive: Present Musculoskeletal: Positive: Normal, Strength/ROM Intact Neurological: Positive: Normal, Sensory/Motor Intact, Alert, Oriented to Person Place, Time Diagnostics - Vital Signs Vital Signs Temp Pulse Resp BP Pulse Ox 07/22/17 09:36 97.6 F 78 14 113/58 99 - Laboratory Result Diagrams: 07/22/17 10:20 07/22/17 10:20 Lab Statement: Any lab studies that have been ordered have been reviewed, and results considered in the medical decision making process. - Radiology abdomen/kub Xray Interpretation: Positive (See Comments) - Markedly dilated stomach is noted. I cannot totally exclude gastric outlet obstruction. Air is noted in the right colon. Radiology Interpretation Completed By: Radiologist - CT abd/pelvis CT Interpretation: Positive (See Comments) - There is diffuse wall thickening with small foci of free air scattered throughout the peritoneal cavity consistent with a perforation. This may be from perforated diverticulitis in the left lower quadrant. Clinical correlation is suggested. Small amount of free fluid is noted. Briana GERONIMO was notified of the results at [address] Interpretation Completed By: Radiologist Re-Evaluation - Re-Evaluation First Eval Re-Evaluation Time: 12:15 Change: Worse - patient states pain has not improved and has seemed to worsen. diffusely tender worse on the right side, + rebound. Dr Cha also evaluated patient at this time in concern for acute abdomen. will give .5mg of dilaudid and obtian KUB while waiting for CT abd/pelvis. Second Eval Re-Evaluation Time: 14:18 Change: Improved - had relief from pain meds, vitals stable, updated on results and plan Abdominal Pain Fem Course/Dx - Course Course Of Treatment: labs obtained and unremarkable. obtained urine and stool sample. given fluids, pain medication and anti-emetic as she became nauseous with the contrast. Dr Cha also evaluated this patient. Spoke with Dr Nicholas at 11:10am who stated to repeat CT with contrast. 2 IV sites were initiated due to patient being hypotensive and requiring pain analgesia. abd xray also obtained to rule out perforation. Closely monitored. Ct shows multiple small foci suggestive of perforations. Contacted Dr Nicholas at 2:10pm, Gene GERONIMO will evaluate and patient will be admitted for IV medication and possible surgical intervetion. Given one dose of zosyn while in ED. Patient updated on results/ plan. Agrees and understands. - Diagnoses Differential Diagnosis: Positive: Diverticulitis, Other - perforation, volvulus , obstruction, ileus Provider Diagnoses: Perforation bowel, Diverticulitis, Ileus - Provider Notifications Discussed Care Of Patient With: Gene Fagan Time Discussed With Above Provider: 11:05 - and 2:10pm Instructed by Provider To: Admit As Inpatient - obtain another Ct and call with results once obtained Discharge - Discharge Plan Condition: Stable Disposition: ADMITTED TO [facility] Referrals: Hayden Fuentes DO [Primary Care Provider] -
[2017-07-22] MEDS: NS 0.9% 1000 ML* 2,000 ML IV ONE ×2 (10:30→12:35)
[2017-07-22 10:38] LABS: ABS Basophils 0 10^3/ul (0-0.2); ABS Eosinophils 0.1 10^3/ul (0-0.6); ABS Lymphocytes 1.1 10^3/ul (1.0-4.8); ABS Monocytes 0.3 10^3/ul (0-0.8); ABS Neutrophils 3.5 10^3/ul (1.5-7.7); ABS Nucleated RBC 0 10^3/ul; Eosinophil % 1.3 % (0-6); Hematocrit 42 % (35-47); Hemoglobin 14.4 g/dl (12.0-16.0); Lymphocyte % 21.7 % (25-47); Mean Corpuscular HGB Conc 34 g/dl (31-36); Mean Corpuscular Hemoglobin 28 pg (27-31); Mean Corpuscular Volume 83 fL (80-97); Mean Platelet Volume 10 um3 (7.4-10.4); Nucleated Red Blood Cells % 0; Platelet Count 272 10^3/ul (150-450); Red Cell Distribution Width 14 % (10.5-15)
[2017-07-22 10:54] LABS: EGFR Non-African American 83.5 (>60)
[2017-07-22] MEDS ORDERED: Iohexol 300* (CONTRAST) 10 ML SDV IV ONE (11:19)
[2017-07-22] MEDS ORDERED: Morphine INJ* 2 MG/ML 1 ML CARPUJECT IV ONE (11:23)
[2017-07-22] MEDS ORDERED: Metoclopramide IV* 5 MG/ML 2 ML VIAL IV ONE (11:41)
[2017-07-22] MEDS ORDERED: HYDROmorphone INJ* 2 MG/ML CARPUJECT SYRINGE IV SLOW PU ONE ×2 (12:26→12:30)
[2017-07-22] MEDS ORDERED: NS 0.9% 1000 ML* 1,000 ML IV ONE (12:33)
[2017-07-22 12:41] LABS: Urine Appearance Cloudy; Urine Blood 2+ (Negative); Urine Color Yellow; Urine Ketones 1+ (Negative); Urine Protein Negative (Negative); Urine Specific Gravity 1.014 (1.010-1.030); Urine Urobilinogen Negative (Negative)
--- NOTE | 2017-07-22 13:38 | RAD ---
Indication: Abdominal pain, evaluate for perforation. Flat plate of the abdomen demonstrates a markedly dilated stomach with fluid air levels. Gas is noted in the small bowel and right colon. The possibility of gastric outlet obstruction should BE considered. IMPRESSION: Markedly dilated stomach is noted. I cannot totally exclude gastric outlet obstruction. Air is noted in the right colon.
--- NOTE | 2017-07-22 14:10 | RAD ---
Indication: Diffuse abdominal pain with recent diverticulitis and abscess. Contrast: Administered 89.3 ml of OMNIPAQUE 300 mg/ml. CT of the abdomen and pelvis was performed after oral and IV contrast administration. Comparison is made with previous exam dated July 08, 2017. Lung bases demonstrate no pleural fluid, nodules or masses. Heart is of normal size without evidence of pericardial effusion. The liver is normal in size. No focal lesions or intrahepatic ductal dilatation is noted. The gallbladder demonstrates no calcified gallstones. No pericholecystic fluid or wall thickening is identified. The pancreas demonstrates no mass effect or ductal dictation. The spleen is normal in size. No adrenal masses are noted. The kidneys demonstrate no hydronephrosis. The stomach is distended. Diffuse wall thickening of the gastric antrum is noted. There are small foci of free air around the liver. There is also free air in the mesentery in the right upper quadrant. Aorta and inferior vena cava are unremarkable. There is phlegmonous change in the sigmoid colon. There is infiltration and reticulation of fat especially around the sigmoid colon. A perforated diverticula is not totally excluded. When compared to previous exam. Phlegmon appears to be increasing in size. There is a small amount of free fluid in the cul-de-sac. The urinary bladder is unremarkable. IMPRESSION: There is diffuse wall thickening with small foci of free air scattered throughout the peritoneal cavity consistent with a perforation. This may be from perforated diverticulitis in the left lower quadrant. Clinical correlation is suggested. Small amount of free fluid is noted. Briana GERONIMO was notified of the results at 1406 hours.
[2017-07-22] MEDS ORDERED: Piperacillin/Tazobac ADVAN(*) 3.375 GM in NS 0.9% 100 ML* 100 ML IVPB ONE (14:21)
[2017-07-22] MEDS ORDERED: NS 0.9% 1000 ML* 1,000 ML IV SCH (15:45)
[2017-07-22] MEDS ORDERED: Acetaminophen TAB* 325 MG PO PRN (16:06)
[2017-07-22] MEDS: Ciprofloxacin 400MG IVPREMIX(* 400 MG/200 ML BAG IVPB SCH (17:35)
[2017-07-22] MEDS ORDERED: HYDROmorphone INJ* 1 MG/ML CARPUJECT SYRINGE ONE (17:38)
[2017-07-22] MEDS: metroNIDAZOLE IV 500 MG/100ML* 500 MG/100 ML BAG IVPB SCH (18:52)
[2017-07-22] MEDS: HYDROmorphone INJ* 1 MG/ML CARPUJECT SYRINGE IV PRN (20:15)
[2017-07-22] MEDS: Ondansetron INJ* 2 MG/ML VIAL IV PRN (20:24)
[2017-07-22] MEDS ORDERED: Lactobacillus Acidophilu (GG)* 1 CAP CAP PO SCH (21:00)
[2017-07-22] MEDS ORDERED: Miconazole VAG SUPP* 200 MG SUP VAGINAL SCH (21:00)
--- NOTE | 2017-07-22 21:58 | HP ---
CC: Dr. Hayden Fuentes at [facility]; Dr. Yovany Tian at Gastroenterology * HISTORY AND PHYSICAL UPDATE: DATE OF ADMISSION: 07/22/17 ATTENDING SURGEON: Dr. Niraj Nicholas.* (DICTATED BY JUANPABLO ELLIOTT) CHIEF COMPLAINT: Abdominal pain. HISTORY OF PRESENT ILLNESS: This is a 41-year-old generally healthy female patient who was recently admitted from 07/04/17 through 07/11/17 for treatment of acute diverticulitis with abscess. The patient did demonstrate clinical improvement and was approximately midway through a 21-day course of Augmentin. She was seen in the office by Dr. Floyd one week ago. Plans were tentatively being made for colonoscopy. She has been maintaining a low residue diet and moving her bowels every day or so. She reports having little or no stool yesterday and then somewhat more constipated stool with straining this morning accompanied by a small amount of blood. She then drove to work, but upon arriving at work had significant lower abdominal pain such that she was unable to get out of the car. She presented to the ED. She denies fever or chills. Pain has remained approximately 7/10 with occasional sharp peaks. It involves the lower abdomen as well as some radiation to the back. She denies fever or chills. She did have a few crackers with peanut butter this morning and subsequently oral contrast. She did have some nausea in the ED that she attributed to the contrast and narcotics. The patient did experience symptoms consistent with vaginal yeast infection and was treated by her PCP office with oral Diflucan with improvement. PAST MEDICAL HISTORY: No other changes. PAST SURGICAL HISTORY: 1. Appendectomy. 2. D and C x2. 3. Angio tumor removed from her knee when she was 2 years old. CURRENT MEDICATIONS: 1. Augmentin 875 mg b.i.d. 2. Diflucan 200 mg daily. FAMILY HISTORY: Unchanged. SOCIAL HISTORY: Unchanged. REVIEW OF SYSTEMS: General: As noted no fever or chills. No other recent constitutional symptoms. Vaginal yeast infection as noted. Cardiovascular: No history of chest pain, palpitations. Respiratory: No shortness of breath or chronic cough. GI: As above per HPI. No additions. : No dysuria or increased frequency. PHYSICAL EXAMINATION GENERAL: Well-nourished, well-developed female, in no acute distress. She appears mildly uncomfortable. VITAL SIGNS: Temperature 98.4, blood pressure ranging from 96 to 121/56 to 70, pulse ranging from 81 to 100, respirations 17, room air saturation 98%. HEENT: Pupils equal, round, and reactive. EOMs intact. No conjunctival pallor or scleral icterus. Oropharynx: Mucous membranes dry. No intraoral lesions. LUNGS: Clear to auscultation. No rales or wheezes. HEART: Regular rate and rhythm. No murmur noted. ABDOMEN: Mildly distended. Bowel sounds present and normal, soft with diffuse mild to moderate tenderness, concentrated most in the left lower quadrant, but significant in right lower quadrant, but not well localized. No masses, guarding, or rigidity. No significant rebound tenderness. GENITALIA AND RECTAL: Not done. EXTREMITIES: No edema. BACK: Mild left CVA tenderness, none on the right. NEUROLOGIC: Grossly intact. SKIN: Warm and dry. No suspicious rashes or lesions. DIAGNOSTIC STUDIES/LAB DATA: White blood cell count 5000, hemoglobin 14.4. Chemistries all essentially normal including lactic acid of 1.1 and CRP of 3.88. LFTs and lipase are also normal. CT scan of the abdomen and pelvis with oral and IV contrast was reviewed showing small areas of free air and phlegmonous reaction in the area of the sigmoid colon consistent with diverticulitis. Scan was also reviewed by Dr. Nicholas who is also in to see and examine the patient in the ED. IMPRESSION: Diverticulitis with phlegmon and microperforation. PLAN: Admission for IV antibiotics (Cipro and Flagyl), pain control and n.p.o. for now. The patient understands the potential need for surgical intervention both in the short term and in the near future. Pending her clinical response to treatment. JUANPABLO ELLIOTT [id number]/[facility] #: [id number] MTDD
[2017-07-23] MEDS: HYDROmorphone INJ* 1 MG/ML CARPUJECT SYRINGE IV PRN ×8 (01:12→21:14)
[2017-07-23] MEDS: metroNIDAZOLE IV 500 MG/100ML* 500 MG/100 ML BAG IVPB SCH ×3 (02:09→18:33)
[2017-07-23] MEDS: Ciprofloxacin 400MG IVPREMIX(* 400 MG/200 ML BAG IVPB SCH ×2 (04:59→17:11)
[2017-07-23 05:45] LABS: ABS Basophils 0 10^3/ul (0-0.2); ABS Eosinophils 0 10^3/ul (0-0.6); ABS Lymphocytes 0.8 10^3/ul (1.0-4.8); ABS Monocytes 0.5 10^3/ul (0-0.8); ABS Neutrophils 9.1 10^3/ul (1.5-7.7); ABS Nucleated RBC 0 10^3/ul; Eosinophil % 0.1 % (0-6); Hematocrit 33 % (35-47); Hemoglobin 11.7 g/dl (12.0-16.0); Lymphocyte % 7.9 % (25-47); Mean Corpuscular HGB Conc 35 g/dl (31-36); Mean Corpuscular Hemoglobin 29 pg (27-31); Mean Corpuscular Volume 82 fL (80-97); Mean Platelet Volume 9 um3 (7.4-10.4); Nucleated Red Blood Cells % 0; Platelet Count 187 10^3/ul (150-450); Red Blood Count 4.06 10^6/ul (4.0-5.4); Red Cell Distribution Width 14 % (10.5-15); White Blood Count 10.5 10^3/ul (3.5-10.8)
[2017-07-23 05:59] LABS: EGFR Non-African American 105.6 (>60)
--- NOTE | 2017-07-23 08:56 | PN ---
Progress Note - Progress Note Date of Service: 07/23/17 SOAP: Subjective: Pt seen and examined. Pt feels a little better. No nausea, thirsty. OOB Objective: Temp Pulse Resp BP Pulse Ox 99.3 F 89 16 101/50 98 07/23/17 03:58 07/23/17 03:58 07/23/17 06:46 07/23/17 03:58 07/23/17 03:58 Uo good a and o x3, mild distress lungs clear abdo: soft/ tender diffusely with local peritoneal signs at R and L LQ labs noted Assessment: Complicated, refractory diverticulitis. Not improved with abx. Pt will likely require OR for partial colectomy, ostomy. SHe shows mild clinical improvement with change of antibiotics. Plan: Continue NPO except ice NPO at [place] tuesday abx serial abdo exams Pt and her husbands questions answered regarding possible OR intervention
[2017-07-23] MEDS ORDERED: Fluconazole 100 MG TAB* TAB PO SCH (09:00)
[2017-07-23] MEDS: Ondansetron INJ* 2 MG/ML VIAL IV PRN (09:09)
[2017-07-23] MEDS ORDERED: diPHENhydraMINE IV* 50 MG/ML 1 ml VIAL (BENADRYL) IV PRN (09:29)
[2017-07-23] MEDS: Magnesium Sulfate 1 GM IV* 1 GM/100 ML BAG IV ONE ×2 (09:40→10:46)
[2017-07-23] MEDS ORDERED: Potassium Phosphate IV* 15 MMOLE in NS 0.9% 250 ML* 250 ML IVPB ONE (10:00)
[2017-07-23] MEDS: D5W 1/2 NS 40 Meq KCL 1000 ML* 1,000 ML IV SCH (11:59)
[2017-07-23] MEDS: Acetaminophen TAB* 325 MG PO PRN (21:03)
[2017-07-23] MEDS: Miconazole VAG.SUPP* 100 MG VAGINAL SCH (21:18)
[2017-07-24] MEDS: HYDROmorphone INJ* 1 MG/ML CARPUJECT SYRINGE IV PRN ×9 (01:13→23:41)
[2017-07-24] MEDS: metroNIDAZOLE IV 500 MG/100ML* 500 MG/100 ML BAG IVPB SCH ×3 (02:35→18:32)
[2017-07-24] MEDS: Ciprofloxacin 400MG IVPREMIX(* 400 MG/200 ML BAG IVPB SCH ×2 (05:32→17:21)
[2017-07-24 05:33] LABS: ABS Basophils 0.1 10^3/ul (0-0.2); ABS Eosinophils 0 10^3/ul (0-0.6); ABS Lymphocytes 0.5 10^3/ul (1.0-4.8); ABS Monocytes 0.6 10^3/ul (0-0.8); ABS Neutrophils 10.1 10^3/ul (1.5-7.7); ABS Nucleated RBC 0 10^3/ul; Eosinophil % 0.4 % (0-6); Hematocrit 33 % (35-47); Hemoglobin 11.1 g/dl (12.0-16.0); Lymphocyte % 4.8 % (25-47); Mean Corpuscular HGB Conc 34 g/dl (31-36); Mean Corpuscular Hemoglobin 28 pg (27-31); Mean Corpuscular Volume 83 fL (80-97); Mean Platelet Volume 9 um3 (7.4-10.4); Nucleated Red Blood Cells % 0; Platelet Count 192 10^3/ul (150-450); Red Blood Count 3.97 10^6/ul (4.0-5.4); Red Cell Distribution Width 14 % (10.5-15); White Blood Count 11.4 10^3/ul (3.5-10.8)
[2017-07-24 05:51] LABS: EGFR Non-African American 116.3 (>60)
[2017-07-24] MEDS: D5W 1/2 NS 40 Meq KCL 1000 ML* 1,000 ML IV SCH ×3 (07:43→21:23)
[2017-07-24] MEDS ORDERED: Piperacillin/Tazobac ADVAN(*) 3.375 GM in NS 0.9% 100 ML* 100 ML IVPB ONE (13:00)
--- NOTE | 2017-07-24 13:01 | PN ---
Progress Note - Progress Note Date of Service: 07/24/17 Note: HD#2 Perf divertic T102 yest, down this AM. VS noted UO adeq. No N/V, no stool Pain about the same Abd distended, tender LLQ w/ focal rebound Labs similar to yesterday. Still left shift, slight elevation of WBC Impr: Divertic w/ focal perf and phlegmon, not adequately responding to abx She will need laparotomy with sigmoid resection and either end colostomy or diverting loop ileostomy. She would prefer if Dr Floyd would do the surgery Long discussion w/ pt and (>30 min.) I believe surgery is unavoidable. We discussed pro/con of surgery today w/me vs tmrw w/ Dr Kingsley. I think the risk of waiting until tomorrow is small. I will add Zosyn to current regimen to try to decrease risk further.
--- NOTE | 2017-07-24 13:02 | PTEDU ---
Patient Name: JESE DIAMOND JESE DIAMOND selected video: Living with an Ostomy to view on 07/24/2017 at 1:01:17 PM from [id number]
[2017-07-24] MEDS: Piperacillin/Tazobactam 13.5 GM IV 24 hour continuous infusion IVPB SCH ×2 (17:20)
[2017-07-24] MEDS: Ondansetron INJ* 2 MG/ML VIAL IV PRN (17:38)
[2017-07-24] MEDS: Miconazole VAG.SUPP* 100 MG VAGINAL SCH (21:52)
[2017-07-25] MEDS: metroNIDAZOLE IV 500 MG/100ML* 500 MG/100 ML BAG IVPB SCH ×2 (01:53→11:17)
[2017-07-25] MEDS: HYDROmorphone INJ* 1 MG/ML CARPUJECT SYRINGE IV PRN ×8 (03:37→19:11)
[2017-07-25] MEDS: Ondansetron INJ* 2 MG/ML VIAL IV PRN ×3 (03:45→23:15)
[2017-07-25] MEDS: Ciprofloxacin 400MG IVPREMIX(* 400 MG/200 ML BAG IVPB SCH (06:12)
[2017-07-25] MEDS: D5W 1/2 NS 40 Meq KCL 1000 ML* 1,000 ML IV SCH (09:18)
[2017-07-25] MEDS ORDERED: fentaNYL* 50 MCG/ML 2 ML VIAL (100 MCG VIAL) ONE ×4 (12:09→17:53)
[2017-07-25] MEDS ORDERED: Midazolam* 1 MG/ML 5 ML VIAL (5 MG) ONE (12:09)
[2017-07-25] MEDS ORDERED: Sodium Bicarbonate 8.4% SYR* 10 ML SYRINGE ONE (12:34)
[2017-07-25] MEDS ORDERED: Lidocaine 2% EPI 1:200000 MPF* 20 ML VIAL ONE ×2 (12:34→15:49)
[2017-07-25] MEDS ORDERED: Propofol* 10 MG/ML 20 ML BTL IV PUSH ONE (12:34)
[2017-07-25] MEDS ORDERED: Lidocaine 2% PF * 5 ML VIAL ONE (12:35)
[2017-07-25] MEDS ORDERED: Ondansetron INJ* 2 MG/ML VIAL ONE (12:35)
[2017-07-25] MEDS ORDERED: Atracurium* 10 MG/ML 10 ML VIAL ONE (12:35)
[2017-07-25] MEDS ORDERED: Dexamethasone IV* 4 MG/ML 1 ML (4 MG) ONE (12:35)
[2017-07-25] MEDS ORDERED: Scopolamine 1.5 mg* PATCH ONE (13:07)
[2017-07-25] MEDS ORDERED: DiMENhydriNATE IV* 50 MG/ML VIAL IV PUSH PRN (13:44)
[2017-07-25] MEDS ORDERED: EPHEDrine (Pressors)* 50 MG/ML VIAL IV PUSH PRN (13:44)
[2017-07-25] MEDS ORDERED: Ketorolac INJ* 30 MG/ML 1 ML VIAL IV PRN (13:44)
[2017-07-25] MEDS ORDERED: Nalbuphine* 20 MG/ML 1 ML VIAL IV PRN (13:44)
[2017-07-25] MEDS ORDERED: Naloxone* 0.4 MG/ML 1 ML VIAL IV PRN (13:49)
[2017-07-25] MEDS ORDERED: Ropivacaine 0.2% EPIDURAL* 200 MG/100 ML BAG EPIDURAL SCH (14:00)
[2017-07-25] MEDS ORDERED: Ropivacaine 0.2% EPIDURAL* 200 MG/100 ML BAG EPIDURAL ONE (14:11)
[2017-07-25] MEDS ORDERED: Piperacillin/Tazobactam VIAL*) 3.375 GM VIAL (COMPD & OVERRIDE) IVPB ONE (16:02)
[2017-07-25] MEDS ORDERED: D5LR 20 MEQ KCL 1000 ML BAG* 1,000 ML IV SCH (17:00)
[2017-07-25] MEDS ORDERED: D5W NS 0.9% 20Meq KCL 1000 ML* 1,000 ML IV SCH (17:00)
[2017-07-25] MEDS ORDERED: HYDROmorphone INJ* 2 MG/ML CARPUJECT SYRINGE ONE (17:18)
[2017-07-25] MEDS: fentaNYL* 50 MCG/ML 2 ML VIAL (100 MCG VIAL) IV PRN ×4 (17:21→18:10)
[2017-07-25] MEDS ORDERED: DiMENhydriNATE IV* 50 MG/ML VIAL ONE (18:08)
[2017-07-25] MEDS ORDERED: NS 0.9% 1000 ML* 1,000 ML IV ONE (18:27)
[2017-07-25] MEDS: Piperacillin/Tazobactam 13.5 GM IV 24 hour continuous infusion IVPB SCH ×2 (20:36)
[2017-07-25] MEDS: Miconazole VAG.SUPP* 100 MG VAGINAL SCH (20:36)
[2017-07-25] MEDS ORDERED: Ropivacaine (OR use only) 2 MG/ML 1 ML ONE (21:00)
[2017-07-25] MEDS: HYDROmorphone PCA* 20 MG/20 ML PCA.SYRING PCA SCH (22:58)
[2017-07-26 05:19] LABS: ABS Basophils 0 10^3/ul (0-0.2); ABS Eosinophils 0 10^3/ul (0-0.6); ABS Lymphocytes 0.4 10^3/ul (1.0-4.8); ABS Monocytes 0.4 10^3/ul (0-0.8); ABS Neutrophils 6.6 10^3/ul (1.5-7.7); ABS Nucleated RBC 0 10^3/ul; Eosinophil % 0 % (0-6); Hematocrit 32 % (35-47); Hemoglobin 10.7 g/dl (12.0-16.0); Lymphocyte % 5.3 % (25-47); Mean Corpuscular HGB Conc 34 g/dl (31-36); Mean Corpuscular Hemoglobin 28 pg (27-31); Mean Corpuscular Volume 82 fL (80-97); Mean Platelet Volume 10 um3 (7.4-10.4); Nucleated Red Blood Cells % 0; Platelet Count 235 10^3/ul (150-450); Red Blood Count 3.83 10^6/ul (4.0-5.4); Red Cell Distribution Width 14 % (10.5-15); White Blood Count 7.4 10^3/ul (3.5-10.8)
[2017-07-26] MEDS: Ondansetron INJ* 2 MG/ML VIAL IV PRN (05:25)
[2017-07-26 05:34] LABS: EGFR Non-African American 132.2 (>60)
[2017-07-26] MEDS: D5W NS 0.9% 20Meq KCL 1000 ML* 1,000 ML IV SCH ×3 (09:07→20:41)
[2017-07-26] MEDS: Heparin VIAL(*) 5000 UNITS/ML VIAL (FIVE THOUSAND) SUBCUT SCH ×3 (09:07→22:28)
[2017-07-26 09:56] LABS: INR 1.36 (0.77-1.02)
--- NOTE | 2017-07-26 13:16 | PN ---
Progress Note - Progress Note Date of Service: 07/26/17 SOAP: Subjective: I saw patient intially at 0830 this morning She is doing well and pain is adequately controlled with RN RESIDENTIAL-unfortunately epidural catheter was not functioning last night and was removed by anesthesia. No SOB Objective: Temp Pulse Resp BP Pulse Ox 97.9 F 72 18 97/63 95 07/26/17 11:53 07/26/17 11:53 07/26/17 12:00 07/26/17 11:53 07/26/17 12:00 Intake & Output 07/24/17 07/25/17 07/26/17 07/27/17 06:59 06:59 06:59 06:59 Intake Total 1471 3030 5718 978 Output Total 2450 3270 2245 Balance -979 -240 3473 978 Intake: IV Fluids 566 2140 4608 ABX - FLAGYL 210 D5W 1/2 NS 40 meq KCL 1930 972 D5W NS 20 meq KCL 1136 NS (0.9%) 566 lr 2500 IVPB 455 310 210 978 ABX - CIPROFLOXACIN 200 205 ABX - ZOSYN 105 210 D5W NS 20 meq KCL 978 Potassium 255 Oral 450 580 900 Output: Urine 2450 3270 1050 Cornelius 925 Residual 20 Cornelius 16 Fr 20 Estimated Blood Loss 250 Other: # Bowel Movements 1 Estimated Stool Amount Medium PEX: Comfortable Lungs are clear with decreased breath sounds in the bases Cor is RRR Abd is soft and slightly distended. Midline dressing intact-not removed RLQ ostomy is pink and edematous-there is a small amount of bilious fluid in the bag Extremities without edema Laboratory Results - last 24 hr 07/26/17 07/26/17 07/26/17 04:52 04:52 09:20 WBC 7.4 RBC 3.83 L Hgb 10.7 L Hct 32 L MCV 82 MCH 28 MCHC 34 RDW 14 Plt Count 235 MPV 10 Neut % (Auto) 88.8 H Lymph % (Auto) 5.3 L [place] % (Auto) 5.8 Eos % (Auto) 0 Baso % (Auto) 0.1 Absolute Neuts (auto) 6.6 Absolute Lymphs (auto) 0.4 L Absolute Monos (auto) 0.4 Absolute Eos (auto) 0 Absolute Basos (auto) 0 Absolute Nucleated RBC 0 Nucleated RBC % 0 INR (Anticoag Therapy) 1.36 H APTT 30.1 Sodium 133 Potassium 4.3 Chloride 109 Carbon Dioxide 20 L Anion Gap 4 BUN 3 L Creatinine 0.51 Est GFR ( Amer) 170.1 Est GFR (Non-Af Amer) 132.2 BUN/Creatinine Ratio 5.9 L Glucose 206 H Calcium 7.5 L Assessment: POD#1 s/p ex lap with sigmoid colon resection and anastomosis with diverting loop ileostomy Doing well Plan: Continue RN RESIDENTIAL Increase activity Pulmonary toilet IV antibiotics Sub q heparin Decrease IVF-adequate urine output but will leave cornelius in for 24 more hours Recheck electrolytes in AM
--- NOTE | 2017-07-26 16:19 | OP ---
CC: [facility]; Hayden Fuentes DO, [facility] * DATE OF OPERATION: 07/25/17 - ROOM #340 DATE OF : 73 SURGEON: Maykel Floyd MD ASSISTANTS: Ted Acosta MD; JUANPABLO Hand Student. ANESTHESIOLOGIST: Dr. Broderick. ANESTHESIA: Epidural with general. PRE-OP DIAGNOSIS: Recurrent sigmoid diverticulitis. POST-OP DIAGNOSIS: Recurrent sigmoid diverticulitis with abdominal abscess. OPERATIVE PROCEDURE: Exploratory laparotomy, with sigmoid resection with primary colorectal anastomosis and diverting loop ileostomy. ESTIMATED BLOOD LOSS: 250 cc. IV FLUIDS: 2.5 L of crystalloids. URINE OUTPUT: Approximately 350 cc. SPECIMENS: Portion of the sigmoid colon. FINDINGS: There was an abscess at the lateral pelvic brim and an inflammatory mass consistent with diverticulitis in the very proximal sigmoid colon. There were few diverticula noted elsewhere. Almost the entire sigmoid colon was resected down to rectum and a primary colorectal stapled anastomosis performed and since the bowel was unprepped, a diverting loop ileostomy was fashioned. BRIEF HISTORY: Ms. Candy Thomas is a 41-year-old woman who is being treated for her first episode of sigmoid diverticulitis which initially presented early this year. Initial concern was for a urinary tract infection and had been on a several course of antibiotics and this worsened. She underwent a CT scan of her abdomen and pelvis which showed sigmoid diverticulitis with a small abscess. This responded nicely to IV and oral antibiotics and she had been improving with plans for followup colonoscopy when several weeks later she developed a severe onset of lower left abdominal discomfort. A CT scan of her abdomen and pelvis showed worsening inflammation without an obvious abscess and several small bubbles of extraluminal air worrisome for new perforation. She was admitted and started once again on IV antibiotics, has not improved over the last 48 hours and after a long discussion on a daily basis with the patient and her , it was felt that she has failed antibiotic therapy and since there does not appear to be an abscess that is amenable to percutaneous drainage that at this point, it was recommended that she undergo surgical intervention involving a laparotomy with resection of the involved area for adequate and optimal treatment. The procedure was discussed with the patient and her . The risks of, but not limited to, of bleeding, infection, intraabdominal abscess formation, anastomotic leak, injury to peritoneal and retroperitoneal structures, i.e., ureter, great vessels, and bowel; the possibility of a colostomy depending on the findings. Risks of deep vein thrombosis and general anesthesia, as well as hospital stays, and recovery times were discussed. Also discussed with the patient was the possibility of performing a sigmoid colon resection with anastomosis with a diverting loop ileostomy. This would avoid an end sigmoid colostomy, and the advantages and disadvantages of the colostomy and loop ileostomy were discussed and it was stressed to them that a decision would be made after evaluating the intraoperative findings. DESCRIPTION OF PROCEDURE: Written informed consent was obtained and the patient was already on IV antibiotics and received a dose preop. The abdomen was marked with indelible ink and she was taken to the operating room and placed in the supine position. An epidural catheter was inserted by Anesthesia. Armstrong catheter was inserted. Prior to prepping the abdomen and pelvis, a rectal washout with Betadine was then performed gently. There was a small amount of brown liquid stool in the rectal vault. The abdomen and perineum were then prepped and draped in usual sterile fashion. Time-out verification was completed. Vertical incision from the umbilical level down to the pubis at the midline was then made, carried down through the midline fascia and the peritoneal cavity was entered under direct vision. There was no evidence of a significant amount of fluid or purulence to suggest peritonitis upon entering the abdomen. There was a mass of omentum and sigmoid colon which was inflammatory in nature and adherent to the anterior abdominal wall and this was taken down with some blunt finger dissection. I entered an abscess cavity of about 20 to 30 cc of creamy pus, and this was cultured and drained adequately. Once we had entered the abdominal cavity completely, careful evaluation of the small bowel was run and this was completely unremarkable from the ligament of Treitz to the cecum. There was one loop of small bowel that was adherent to the abscess and inflammation which was peeled off nicely with no small bowel abnormality noted. Palpation of the remainder of the colon including the right , transverse and descending colon was unremarkable. The liver, gallbladder and stomach were normal. The uterus and both ovaries were intact and some of the inflammatory process was adherent to the left ovary as well as the uterus and this was finger dissected apart easily and to expose the lateral pelvic wall and the pelvis. The bladder was not adherent or in even proximity to the rectosigmoid colon. There was no evidence of a colovesical fistula. It appeared that this inflammatory process in the site of the diverticulitis was in the distal descending and proximal sigmoid colon, and once I was able to free this up along the white line of Toldt laterally in the left, it came up into view nicely and it was quite a redundant sigmoid colon as well as mesentery. At this point, I mobilized the descending colon somewhat superiorly and we used a ABRAM 80 stapler to divide the distal descending colon several centimeters above the inflammatory process where this appeared to be soft, supple, completely viable without evidence of diverticular disease. The mesentry was then mobilized up into view and I was able to identify the left and the right ureter which really were not involved with an inflammatory process and these were protected from injury throughout the remainder of the case. A decision was made to proceed with a resection of the sigmoid colon and the mesentery was taken proximally to distal down into the pelvis, down to the level of the rectum using the handheld LigaSure device with excellent hematosis. At this point, a decision was needed to be made concerning possible colostomy versus consideration of a colorectal anastomosis with diverting loop ileostomy. She is young and healthy there was no evidence of significant generalized inflammation, although there was some fibrinous material down into the pelvis, all was viable and the dissection up to this point had been fairly straightforward and I felt at this point that a colorectal anastomosis with diverting loop ileostomy was possible and feasible.The distal sigmoid colon at the upper portion of the rectum was then divided with a TA-60 stapler in the proximal rectum and the specimen was then handed off the table. I did open the specimen and this appeared to be have normal mucosa with several small diverticula with no evidence of malignancy or tumor. Next, we mobilized the descending colon as well as the splenic flexure with careful dissection to improve mobilization for the colon to reach down into the pelvis for the anastomosis. Hemostasis was assured. There was a small rent made in the transverse mesocolon. This was closed with a running 3-0 Vicryl suture. Next, a pursestring suture was then placed using 3-0 Ti-Cron suture in the proximal colon and this was sized. We felt that a 28 mm EEA stapler was the optimal size and the anvil was then placed and the pursestring suture was tied. The rectum and the anus was then dilated from below and the dilators were then passed up into the rectal stump without difficulty. A 28 mm EEA stapler was then passed up into the rectal stump and the pin was brought out just anterior to the staple line and the EEA stapler anastomosis was then fired in the usual fashion. However, our air leak test with insufflating air through the anus with clamping the proximal bowel revealed a posterior leak. Review of the donuts show that there was a thinner donut on the proximal donut. Since we had plenty of redundant rectum and colon, decision was made to redo the anastomosis and this staple line was then removed and a repeat handsewn pursestring suture with a whipstitch type technique in the descending colon was then fashioned and once again, the 28 anvil was then placed and this was tied down. Once again, we re-stapled the rectal stump with a TA-60 stapler without difficulty. The EEA was then brought up per the anus and into position and the EEA stapler was then fired. This time there was excellent completely circumferential donuts on the stapler device and the air leak test showed no evidence of leak on insufflation. Hematosis was then assured. We thoroughly irrigated the pelvis and entire abdomen. The liver had been palpated and this was unremarkable as well as the gallbladder. All sponge, needle and lap pad counts were reported to be normal and careful evaluation and examination of the abdomen revealed no instruments or lap pads in the abdomen. Next, an area on the terminal ileum probably 6 inches proximal to the cecum was identified in preparation for the loop ileostomy. This was brought up to the abdominal wall with no tension and without twisting and a defect was made in the right lower abdominal wall just several centimeters off the midline incision through the rectus muscle and the loop of ileum was brought up without tension with care to prevent twisting without difficulty. Next, the midline fascia was closed with interrupted #1 Vicryl suture. The skin was approximated loosely with the stapling device and the wound was packed intermittently with one 0.25-inch Nu-Gauze. The ileostomy was then matured to the skin with interrupted 3-0 Polysorb suture. I did place a #16 red rubber catheter through a defect in the mesentery of the small bowel to prevent this from slipping back into the abdominal cavity as it matured. An ostomy appliance was applied. Dry sterile dressings were applied. The patient tolerated the procedure well, was taken to the recovery room in stable condition. [id number]/[facility] #: [id number] MTDD
[2017-07-26] MEDS ORDERED: diPHENhydraMINE IV* 50 MG/ML 1 ml VIAL (BENADRYL) IV PRN (20:30)
[2017-07-26] MEDS ORDERED: diPHENhydraMINE PO* 25 MG PO PRN (20:30)
[2017-07-26] MEDS: Miconazole VAG.SUPP* 100 MG VAGINAL SCH (20:40)
[2017-07-26] MEDS: Famotidine IV* 10 MG/ML 2 ML (20 mg) IV SCH (20:40)
[2017-07-26] MEDS: Piperacillin/Tazobactam 13.5 GM IV 24 hour continuous infusion IVPB SCH ×2 (20:41)
[2017-07-26] MEDS ORDERED: Famotidine IV * 20 MG in NS 0.9% 100 ML* 100 ML IVPB SCH (21:00)
[2017-07-27] MEDS ORDERED: diPHENhydraMINE IV* 50 MG/ML 1 ml VIAL (BENADRYL) IV PRN (01:07)
[2017-07-27] MEDS: Heparin VIAL(*) 5000 UNITS/ML VIAL (FIVE THOUSAND) SUBCUT SCH ×3 (06:32→22:23)
[2017-07-27] MEDS: D5W NS 0.9% 20Meq KCL 1000 ML* 1,000 ML IV SCH ×2 (06:32→22:32)
[2017-07-27 06:49] LABS: EGFR Non-African American 107.6 (>60)
[2017-07-27] MEDS: Famotidine IV* 10 MG/ML 2 ML (20 mg) IV SCH ×2 (08:33→22:18)
[2017-07-27] MEDS: HYDROmorphone PCA* 20 MG/20 ML PCA.SYRING PCA SCH (10:11)
[2017-07-27] MEDS: Ketorolac INJ* 30 MG/ML 1 ML VIAL IV PUSH SCH ×3 (10:13→22:22)
--- NOTE | 2017-07-27 10:28 | PN ---
Progress Note - Progress Note Date of Service: 07/27/17 SOAP: Subjective: Doing well Had some itching felt secondary to morphine last night-no nausea No SOB and she has been ambulating quite a bit in the halls Voiding well with cornelius out Pain is adequately controlled Objective: Temp Pulse Resp BP Pulse Ox 98.0 F 69 18 96/59 95 07/27/17 07:34 07/27/17 07:34 07/27/17 10:11 07/27/17 07:34 07/27/17 10:00 Intake & Output 07/25/17 07/26/17 07/27/17 07/28/17 06:59 06:59 06:59 06:59 Intake Total 3030 5718 3836 Output Total 3270 2245 1850 700 Balance -240 3473 1986 - Intake: IV Fluids 2140 4608 1938 ABX - FLAGYL 210 ABX - ZOSYN 230 D5W 1/2 NS 40 meq KCL 1930 972 D5W NS 20 meq KCL 1136 1708 lr 2500 IVPB 310 210 978 ABX - CIPROFLOXACIN 205 ABX - ZOSYN 105 210 D5W NS 20 meq KCL 978 Oral 580 900 920 Output: Urine 3270 1050 1850 700 Cornelius 925 Residual 20 Cornelius 16 Fr 20 Ileostomy 0 Estimated Blood Loss 250 Other: Estimated Void Medium # Bowel Movements 1 Estimated Stool Amount Medium # Voids 1 PEX: Comfortable Lungs are clear Abd is soft and slightly distended. Bowel sounds are present but are hypoactive throughout. Ostomy is pink and edematous with a small amount of bilious thick fluid in bag Midline incision is clean and intact and the packing was changed. Ext without edema Laboratory Results - last 24 hr 07/27/17 05:45 Sodium 138 Potassium 3.7 Chloride 106 Carbon Dioxide 24 Anion Gap 8 BUN 2 L Creatinine 0.61 Est GFR ( Amer) 138.3 Est GFR (Non-Af Amer) 107.6 BUN/Creatinine Ratio 3.3 L Glucose 100 Calcium 8.3 L Assessment: POD#2 s/p sigmoid colectomy with diverting loop ileostomy Plan: Clear liquid diet-advance diet as tolerated Increase activity IV abx H2 alfredo, sub q heparin, pulmonary toilet Wound care.
[2017-07-27] MEDS: Piperacillin/Tazobactam 13.5 GM IV 24 hour continuous infusion IVPB SCH ×4 (17:40→17:42)
[2017-07-27] MEDS: Miconazole VAG.SUPP* 100 MG VAGINAL SCH (22:16)
[2017-07-28] MEDS: Ketorolac INJ* 30 MG/ML 1 ML VIAL IV PUSH SCH ×4 (05:39→22:25)
[2017-07-28] MEDS: Heparin VIAL(*) 5000 UNITS/ML VIAL (FIVE THOUSAND) SUBCUT SCH ×3 (05:43→22:28)
--- NOTE | 2017-07-28 07:51 | PN ---
Progress Note - Progress Note Date of Service: 07/28/17 SOAP: Subjective: Doing well-slept better Ambulating in halls Pain is well-controlled with MARINE GEOLOGIST and toradol although she had some "spasms" after receiving toradol that have resolved Minimal appetite and she is taking minimal po Objective: Temp Pulse Resp BP Pulse Ox 97.4 F 52 18 111/59 97 07/28/17 03:17 07/28/17 03:17 07/28/17 06:30 07/28/17 03:17 07/28/17 06:30 Intake & Output 07/26/17 07/27/17 07/28/17 07/29/17 06:59 06:59 06:59 06:59 Intake Total 5718 3836 2892 Output Total 2245 1850 2850 Balance 3473 1986 42 Intake: IV Fluids 4608 1938 410 ABX - ZOSYN 230 D5W 1/2 NS 40 meq KCL 972 D5W NS 20 meq KCL 1136 1708 410 lr 2500 IVPB 210 978 832 ABX - ZOSYN 210 264 D5W NS 20 meq KCL 978 568 Oral 938 241 2707 Output: Urine 1050 1850 2850 Armstrong 925 Residual 20 Armstrong 16 Fr 20 Ileostomy 0 0 Estimated Blood Loss 250 Other: Estimated Void Medium # Voids 1 PEX: Comfortable Lungs are clear Abd is soft and slightly distended. Dressing intact. Ileostomy is pink and edematous with some bilious fluid in bag. Bowel sounds are present and more active than yesterday and are higher pitched Assessment: POD#3 s/p sigmoid colectomy and diverting loop ileostomy Plan: IVF/MARINE GEOLOGIST Subq heparin Pul toilet and increase activity Encouraged increased po intake-she has poor appetite
[2017-07-28] MEDS: Famotidine IV* 10 MG/ML 2 ML (20 mg) IV SCH ×2 (09:44→22:21)
[2017-07-28] MEDS ORDERED: Scopolamine PATCH Remove* 1 NOTE MISC PATCH OFF ONE (13:50)
[2017-07-28] MEDS: Piperacillin/Tazobactam 13.5 GM IV 24 hour continuous infusion IVPB SCH ×2 (16:21)
[2017-07-28] MEDS: D5W NS 0.9% 20Meq KCL 1000 ML* 1,000 ML IV SCH (19:14)
[2017-07-28] MEDS: Ondansetron INJ* 2 MG/ML VIAL IV PRN (20:05)
[2017-07-28] MEDS: Miconazole VAG SUPP* 200 MG SUP VAGINAL SCH (22:20)
[2017-07-29] MEDS: Ondansetron INJ* 2 MG/ML VIAL IV PRN ×4 (05:16→23:31)
[2017-07-29] MEDS: Ketorolac INJ* 30 MG/ML 1 ML VIAL IV PUSH SCH ×2 (05:20→09:16)
[2017-07-29] MEDS: Heparin VIAL(*) 5000 UNITS/ML VIAL (FIVE THOUSAND) SUBCUT SCH ×3 (05:26→22:12)
[2017-07-29 05:53] LABS: ABS Basophils 0 10^3/ul (0-0.2); ABS Eosinophils 0.2 10^3/ul (0-0.6); ABS Lymphocytes 0.9 10^3/ul (1.0-4.8); ABS Monocytes 0.2 10^3/ul (0-0.8); ABS Neutrophils 1.7 10^3/ul (1.5-7.7); ABS Nucleated RBC 0 10^3/ul; Eosinophil % 7.6 % (0-6); Hematocrit 32 % (35-47); Lymphocyte % 29.2 % (25-47); Mean Corpuscular HGB Conc 34 g/dl (31-36); Mean Corpuscular Hemoglobin 28 pg (27-31); Mean Corpuscular Volume 82 fL (80-97); Mean Platelet Volume 8.1 um3 (7.4-10.4); Nucleated Red Blood Cells % 0.2; Platelet Count 278 10^3/ul (150-450); Red Blood Count 3.94 10^6/ul (4.0-5.4); Red Cell Distribution Width 14 % (10.5-15); White Blood Count 3.1 10^3/ul (3.5-10.8)
[2017-07-29] MEDS: Famotidine IV* 10 MG/ML 2 ML (20 mg) IV SCH ×2 (09:17→20:35)
[2017-07-29] MEDS ORDERED: HYDROmorphone INJ* 2 MG/ML CARPUJECT SYRINGE IV SLOW PU PRN (09:53)
[2017-07-29] MEDS ORDERED: HYDROmorphone INJ* 1 MG/ML CARPUJECT SYRINGE IV SLOW PU PRN (10:04)
--- NOTE | 2017-07-29 10:45 | PN ---
Progress Note - Progress Note Date of Service: 07/29/17 SOAP: Subjective: []Progress Note - Progress Note Date of Service: 07/29/17 SOAP: Subjective: Doing well-minimal pain and using LADLE HANDLER very little She has had gas in ileostomy bag and feels less distended No N/V Ambulating in halls Tolerating po but minimal appetite and taking just liquids Objective: Temp Pulse Resp BP Pulse Ox 97.5 F 57 16 141/76 97 07/29/17 07:19 07/29/17 07:19 07/29/17 09:20 07/29/17 07:19 07/29/17 08:00 Intake & Output 07/27/17 07/28/17 07/29/17 07/30/17 06:59 06:59 06:59 06:59 Intake Total 2168 2203 1490 590 Output Total 2950 400 Balance -782 1803 1490 590 Intake: IV Fluids 1748 513 10 ABX - CEFAZOLIN 20 LR 600 NS (0.45%) 1148 NS (0.9%) 493 10 IVPB 20 40 30 ABX - CEFAZOLIN 20 40 20 NS (0.9%) 10 Oral 400 1650 1450 590 Output: Urine 2350 400 Armstrong 600 Other: Estimated Void Medium Medium # Bowel Movements 0 0 0 # Voids 1 1 1 PEX: Lungs are clear Abd is soft and less distended. Incision is clean and dry and the packing was removed and not replaced. Dry dressing placed. Ostomy pink and slightly edematous with bilious fluid in bag Ext without edema Labs noted--WBC low, this has been present in the past-will follow Assessment: POD #4 s/p sigmoid colectomy with diverting loop ileostomy Ileus resolving Plan: Advance diet to regular D/C LADLE HANDLER-oral analgesia, toradol Increase activity Ostomy teaching Hopefully home in next 24-48 hours.
[2017-07-29] MEDS ORDERED: Ketorolac INJ* 30 MG/ML 1 ML VIAL IV PUSH PRN (11:18)
[2017-07-29] MEDS: oxyCODONE/Acetamin 5/325 MG* TAB PO PRN ×3 (11:18→22:11)
[2017-07-29] MEDS: Piperacillin/Tazobactam 13.5 GM IV 24 hour continuous infusion IVPB SCH ×2 (17:18)
[2017-07-29] MEDS: Miconazole VAG SUPP* 200 MG SUP VAGINAL SCH (20:35)
[2017-07-29] MEDS: ALPRAZolam TAB* 0.25 MG PO PRN (20:49)
[2017-07-30] MEDS: oxyCODONE/Acetamin 5/325 MG* TAB PO PRN (03:49)
[2017-07-30] MEDS: Heparin VIAL(*) 5000 UNITS/ML VIAL (FIVE THOUSAND) SUBCUT SCH ×3 (05:57→21:54)
[2017-07-30] MEDS: Ondansetron INJ* 2 MG/ML VIAL IV PRN (05:57)
[2017-07-30] MEDS: Famotidine IV* 10 MG/ML 2 ML (20 mg) IV SCH ×2 (09:19→20:54)
--- NOTE | 2017-07-30 09:48 | PN ---
Progress Note - Progress Note Date of Service: 07/30/17 SOAP: Subjective: Doing well-trying to increase her oral intake Tolerating some regular food She is comfortable emptying bag but not changing wafer She is anxious about going home Pain is well controlled Objective: Temp Pulse Resp BP Pulse Ox 97.2 F 55 16 105/64 97 07/30/17 03:48 07/30/17 03:48 07/30/17 06:12 07/30/17 03:48 07/30/17 03:48 Intake & Output 07/28/17 07/29/17 07/30/17 07/31/17 06:59 06:59 06:59 06:59 Intake Total 2892 3276 3961 200 Output Total 2850 4160 4950 Balance 42 -805 -989 200 Intake: IV Fluids 410 137 860 ABX - ZOSYN 59 D5W NS 20 meq KCL 410 137 801 IVPB 832 1399 441 ABX - ZOSYN 264 548 441 D5W NS 20 meq KCL 568 851 Oral 1650 1740 2660 200 Output: Urine 2850 3960 4450 Ileostomy 0 200 500 Other: Estimated Void Large PEX: Comfortable Lungs are clear Abd is soft and slightly distended. Bowel sounds are present. Incision is clean and dry Ostomy is pink and there is bilious fluid in bag No labs Final cultures noted Assessment: POD # 5 s/p sigmoid colectomy with diverting ileostomy--perforated sigmoid diverticulitis Plan: Regular diet Ostomy care IV antibiotics She is almost ready for discharge when she is comfortable with care at home- hopefully tomorrow.
[2017-07-30] MEDS: Acetaminophen TAB* 325 MG PO PRN ×2 (14:19→20:53)
[2017-07-30] MEDS: Piperacillin/Tazobactam 13.5 GM IV 24 hour continuous infusion IVPB SCH ×2 (17:24)
[2017-07-30] MEDS: Miconazole VAG SUPP* 200 MG SUP VAGINAL SCH (20:55)
[2017-07-30] MEDS: ALPRAZolam TAB* 0.25 MG PO PRN (21:53)
[2017-07-31] MEDS: Acetaminophen TAB* 325 MG PO PRN (03:49)
[2017-07-31] MEDS: Heparin VIAL(*) 5000 UNITS/ML VIAL (FIVE THOUSAND) SUBCUT SCH ×2 (05:49→14:26)
[2017-07-31] MEDS: oxyCODONE/Acetamin 5/325 MG* TAB PO PRN (05:59)
[2017-07-31] MEDS: Famotidine IV* 10 MG/ML 2 ML (20 mg) IV SCH (09:31)
--- NOTE | 2017-07-31 10:15 | PN ---
Progress Note - Progress Note Date of Service: 07/31/17 SOAP: Subjective: Continues to do well-would like to go home today Tolerating some solid foods Caring for ostomy Objective: Temp Pulse Resp BP Pulse Ox 98.1 F 55 18 121/69 96 07/31/17 07:11 07/31/17 07:11 07/31/17 09:04 07/31/17 07:11 07/31/17 07:11 Intake & Output 07/29/17 07/30/17 07/31/17 08/01/17 06:59 06:59 06:59 06:59 Intake Total 3276 3961 2761 Output Total 4160 4950 3065 Balance -884 -989 -304 Intake: IV Fluids 137 860 ABX - ZOSYN 59 D5W NS 20 meq KCL 137 801 IVPB 1399 441 441 ABX - ZOSYN 548 441 441 D5W NS 20 meq KCL 851 Oral 1740 2660 2320 Output: Urine 3960 4450 2950 Ileostomy 200 500 115 Other: Estimated Void Large PEX: Comfortable Lungs are clear Abd is soft and slightly distended. Incision is clean and dry.Ostomy is pink and edematous, there is thick green fluid in bag. Bowel sounds are present Assessment: POD# 6 s/p sigmoid colectomy with diverting loop ileostomy Plan: D/C home today Instructions given Office follow up arranged.
[2017-07-31 12:33] VITALS: BP 114/62
[2017-07-31] MEDS: ALPRAZolam TAB* 0.25 MG PO PRN (14:19)
--- NOTE | 2017-07-31 14:54 | PN ---
Progress Note - Progress Note Date of Service: 07/31/17 Note: Anesthesia: I was asked to see the patient re: bump on her back and tenderness at epidural site. The chart was reviewed. The patient has no complaints of leg weakness nor sensory changes. On exam, her strength and sensation are intact. Her back shows a small scab at the epidural site, which is normal. There is no redness nor increased warmth. There is some mild tenderness. The bump she was worried about is her spinous process, there is no edema or extra tissue over the process. It is normal. Currently there is no need for any further evaluation. I asked the patient and her to contact the hospital, and ask for Dr. Broderick if she has any further questions or complaints. They will immediately call if there is any redness, discharge or neuro changes.
--- NOTE | 2017-08-01 00:24 | DS ---
CC: Dr. Hayden Fuentes, [facility] * DISCHARGE SUMMARY: DATE OF ADMISSION: 07/22/17 DATE OF DISCHARGE: 07/31/17 PRINCIPAL DIAGNOSIS: Perforated sigmoid diverticulitis with abscess. SECONDARY DIAGNOSIS: None. PROCEDURE PERFORMED: Exploratory laparotomy, with sigmoid colon resection with primary anastomosis and diverting loop ileostomy. CONDITION ON DISCHARGE: Good. DISPOSITION: To home. INSTRUCTIONS: The patient was instructed to complete her antibiotic course, which included 3 days of 875 mg b.i.d. of Augmentin and then discontinue antibiotics. She was given a prescription for Percocet for discomfort, it was sent to the [facility] in [place] to be used sparingly. She was instructed to take plain Tylenol and Motrin/nonsteroidals for her pain management. Ostomy instructions and supplies were reviewed and given. Followup appointment was to be made in the office in the next several days for followup. She was also given a prescription for miconazole vaginal suppositories for vaginal and yeast infection secondary to antibiotic use. Complete wound instructions and reasons to call the office were also given on a separate written instruction sheet. BRIEF HISTORY: Ms. Candy Thomas is a 41-year-old woman who is healthy otherwise developed her first and initial episode of sigmoid diverticulitis. She had initially presented and was admitted in the hospital in early July, was noted to have a small abscess, which responded nicely on a followup CT scan to IV antibiotics and she was improving as an outpatient with oral antibiotics. Unfortunately, she developed a sudden onset of severe left lower quadrant abdominal pain and presented to the emergency room and it was noted to have once again what appeared to be increasing inflammation in the sigmoid area consistent with diverticulitis. She was admitted to the hospital and started on IV antibiotics. Over the next 48 to 72 hours, her pain did not improve and she had some fevers and it was felt that she was not responding to IV antibiotics and the decision was made after discussion with the patient and her to proceed with surgical intervention. On hospital day #3, she underwent exploratory laparotomy with a sigmoid colon resection. Findings at surgery were that of an intra-abdominal abscess with severe acute sigmoid diverticulitis. She underwent a sigmoid colon resection with a primary anastomosis and a diverting loop ileostomy, which she tolerated well. Postoperatively, she did well and had an expected post-operative ileus which improved in the next several days and her diet was advanced to regular as tolerated. She was maintained on intravenous Zosyn with plans for 3 days of oral antibiotics as per above. On the day of discharge, she was handling and managing her ostomy well, her pain was well controlled, she was ambulating and was discharged home in the care of her . Final pathology available at the time of this dictation revealed benign diverticulitis without evidence of neoplasm or malignancy and perforation. [id number]/[facility] #: [id number] JOSE
== END 2017-07-31 16:00 | disposition home health service (06) | DRG 221 ==
LOC: ED 09:32 → SSU 15:28
PROVIDERS: ADMIT Surgery; ATTEND Surgery
PROC: 0D1B0Z4 Bypass Ileum to Cutaneous, Open Approach (ICD-10-PCS; 2017-07-25)
PROC: 0DTN0ZZ Resection of Sigmoid Colon, Open Approach (ICD-10-PCS; principal; 2017-07-25 12:30)
PROC: 00PUX3Z Removal of Infusion Device from Spinal Canal, External Approach (ICD-10-PCS; 2017-07-26)
DX: K57.20 Diverticulitis of large intestine with perforation and abscess without bleeding (principal); M41.9 Scoliosis, unspecified; K59.00 Constipation, unspecified; T36.95XA Adverse effect of unspecified systemic antibiotic, initial encounter; B37.3 Candidiasis of vulva and vagina; Y92.009 Unspecified place in unspecified non-institutional (private) residence as the place of occurrence of the external cause; J30.2 Other seasonal allergic rhinitis; L29.9 Pruritus, unspecified; T40.2X5A Adverse effect of other opioids, initial encounter; Y92.239 Unspecified place in hospital as the place of occurrence of the external cause; Z85.828 Personal history of other malignant neoplasm of skin; Z86.19 Personal history of other infectious and parasitic diseases; Z82.49 Family history of ischemic heart disease and other diseases of the circulatory system; Z83.3 Family history of diabetes mellitus; Z88.8 Allergy status to other drugs, medicaments and biological substances; Z82.0 Family history of epilepsy and other diseases of the nervous system; Z72.89 Other problems related to lifestyle
CPT/HCPCS: 36415; 74019; 74177; 80048; 80053; 81003; 81015; 81025; 83605; 83690; 83735; 84100; 85025; 85610; 85730; 86140; 87040; 87070; 87073; 87076; 87077; 87086; 87186; 87205; 87640; 87641; 88307; 94760; 99283; A9270-GY; C1776; J0744; J1100; J1170; J1200; J1240; J1644; J1885; J2250; J2270; J2405; J2543; J2704; J2765; J2795; J3010; J3475; J3490; Q9967

== ENCOUNTER 2017-09-19 09:22 | Inpatient (IN) | payer BC ==
[~2017-09-19 09:22] MED LIST: Buffered Lidocaine 0.9% SYRIN* 5 ML/SYR SYRINGE INTRADERM ONE
[2017-09-19] MEDS ORDERED: Buffered Lidocaine 0.9% SYRIN* 5 ML/SYR SYRINGE ONE (09:35)
[2017-09-19] MEDS ORDERED: ceFAZolin 2 GM PREMIX (*) 2 GM/50 ML BAG IVPB ONE (09:35)
[2017-09-19] MEDS ORDERED: fentaNYL* 50 MCG/ML 2 ML VIAL (100 MCG VIAL) ONE ×4 (10:23→14:22)
[2017-09-19] MEDS ORDERED: Midazolam* 1 MG/ML 5 ML VIAL (5 MG) ONE (10:23)
[2017-09-19] MEDS ORDERED: Cisatracurium* 2 MG/ML MDV 5 ML ONE (11:55)
[2017-09-19] MEDS ORDERED: Propofol* 10 MG/ML 20 ML BTL IV PUSH ONE (12:12)
[2017-09-19] MEDS ORDERED: Lidocaine 2% PF * 5 ML VIAL ONE (12:12)
[2017-09-19] MEDS ORDERED: Dexamethasone IV* 4 MG/ML 1 ML (4 MG) ONE (12:12)
[2017-09-19] MEDS ORDERED: Famotidine IV* 10 MG/ML 2 ML (20 mg) ONE (12:12)
[2017-09-19] MEDS ORDERED: Hetastarch 6% in NS* 500 ML IV ONE (12:22)
[2017-09-19] MEDS ORDERED: Bupivacaine 0.5% PF 10 ML VIAL INJ ONE (13:15)
[2017-09-19] MEDS ORDERED: Ketorolac INJ* 30 MG/ML 1 ML VIAL ONE (13:28)
[2017-09-19] MEDS ORDERED: Acetaminophen TAB* 325 MG PO PRN (13:39)
[2017-09-19] MEDS ORDERED: Ondansetron 40 MG VIAL* 2 MG/ML 20 ML VIAL IV PRN (13:39)
[2017-09-19] MEDS ORDERED: Ketorolac INJ* 30 MG/ML 1 ML VIAL IV SCH (14:00)
[2017-09-19] MEDS ORDERED: Nalbuphine* 20 MG/ML 1 ML VIAL IV PRN (14:08)
[2017-09-19] MEDS ORDERED: PROCHLORPERAZINE INJ 5 MG/ML 2 ML VIAL IV PRN (14:08)
[2017-09-19] MEDS ORDERED: DiMENhydriNATE IV* 50 MG/ML VIAL IV PUSH PRN (14:08)
[2017-09-19] MEDS ORDERED: Naloxone* 0.4 MG/ML 1 ML VIAL IV PRN (14:08)
[2017-09-19] MEDS: fentaNYL* 50 MCG/ML 2 ML VIAL (100 MCG VIAL) IV PRN ×2 (14:23→14:36)
[2017-09-19] MEDS ORDERED: DiMENhydriNATE IV* 50 MG/ML VIAL ONE (14:24)
[2017-09-19] MEDS ORDERED: HYDROmorphone INJ* 2 MG/ML CARPUJECT SYRINGE ONE (15:33)
[2017-09-19] MEDS: HYDROmorphone INJ* 2 MG/ML CARPUJECT SYRINGE IV PRN (15:34)
[2017-09-19] MEDS: NS 0.9% 1000 ML* 1,000 ML IV SCH (15:43)
[2017-09-19] MEDS: Ketorolac INJ* 30 MG/ML 1 ML VIAL IV SCH (20:08)
[2017-09-20] MEDS: NS 0.9% 1000 ML* 1,000 ML IV SCH ×2 (01:13→11:06)
[2017-09-20] MEDS: Ketorolac INJ* 30 MG/ML 1 ML VIAL IV SCH ×4 (01:59→20:05)
[2017-09-20] MEDS: oxyCODONE/Acetamin 5/325 MG* TAB PO PRN ×4 (02:02→20:09)
[2017-09-20 05:21] LABS: ABS Basophils 0 10^3/ul (0-0.2); ABS Eosinophils 0 10^3/ul (0-0.6); ABS Lymphocytes 0.9 10^3/ul (1.0-4.8); ABS Monocytes 0.4 10^3/ul (0-0.8); ABS Neutrophils 5.1 10^3/ul (1.5-7.7); ABS Nucleated RBC 0 10^3/ul; Eosinophil % 0.1 % (0-6); Hematocrit 32 % (35-47); Hemoglobin 11.2 g/dl (12.0-16.0); Lymphocyte % 13.7 % (25-47); Mean Corpuscular HGB Conc 35 g/dl (31-36); Mean Corpuscular Hemoglobin 29 pg (27-31); Mean Corpuscular Volume 83 fL (80-97); Mean Platelet Volume 8.5 um3 (7.4-10.4); Nucleated Red Blood Cells % 0; Platelet Count 200 10^3/ul (150-450); Red Blood Count 3.91 10^6/ul (4.0-5.4); Red Cell Distribution Width 14 % (10.5-15); White Blood Count 6.4 10^3/ul (3.5-10.8)
--- NOTE | 2017-09-20 05:26 | OP ---
DATE OF OPERATION: 09/19/17 - ROOM #333 DATE OF : 73 SURGEON: Maykel Floyd MD ASSISTANTS: Laura Soni NP ANESTHESIOLOGIST: Dr. Grissom ANESTHESIA: General with local. PRE-OP DIAGNOSIS: Right lower quadrant loop diverting ileostomy. POST-OP DIAGNOSIS: Right lower quadrant loop diverting ileostomy. OPERATIVE PROCEDURE: Open reversal of loop ileostomy. ESTIMATED BLOOD LOSS: 50 cc. IV FLUIDS: 1 L of saline and 500 cc of hetastarch (Hespan). URINE OUTPUT: Not recorded. SPECIMENS: Small portion of small intestine/ileum. DRAINS: None. WOUND CLASSIFICATION: 2. COMPLICATIONS: None. BRIEF HISTORY: Ms. Candy Thomas is a 41-year-old woman who underwent an urgent sigmoid colon resection for diverticulitis with abscess and primary anastomosis was performed and this was protected with a diverting loop ileostomy. She did well postoperatively and is just about 2 months from her surgery. She has been doing well and a Gastrografin/barium enema showed the anastomosis to be patent without evidence of leak and she is now here to be taken to the operating room for reversal of her ileostomy. DESCRIPTION OF PROCEDURE: Written informed consent was obtained and the abdomen was marked with indelible ink. Preoperative antibiotics were administered and informed consent was obtained. She was taken to the operating room, placed in the supine position. Sequential compression devices and a warming blanket were applied. General anesthesia was administered. The abdomen was prepped and draped in a usual sterile fashion. Time-out verification was completed. Initially, an elliptical incision was made in the right lower quadrant around the ostomy down through the skin with a 15 blade knife into the subcutaneous tissue. The loop of ileum was then dissected free from the subcutaneous tissue down to the fascia and the peritoneal cavity was entered under direct vision. The bowel was freed up circumferentially at the fascial level and there were only minimal adhesions. Next, the small bowel was delivered more out into the field and using a ABRAM 60 stapler, the bowel proximal and distal to the loop ileostomy was divided. The small specimen of small bowel was then sent for pathology. Anastomosis of the small bowel was then fashioned using the [id number] technique with a ABRAM 60 stapler and the common rent was closed with the TA 60 stapler as well. Several imbricating sutures of 3-0 silk were placed. The small mesenteric defect was closed with interrupted 3-0 silk suture. The anastomosis and bowel were then placed back in the abdominal cavity through the fascial defect. The fascia was freed circumferentially once again and was closed in a transverse orientation with interrupted #1 full thickness Vicryl suture. The wound was irrigated and hemostasis was assured. Marcaine 2% was infiltrated in the subcutaneous tissue and muscle. The wound was packed with 2- inch moist Nisreen and covered with a dry sterile dressing. The patient tolerated the procedure well and was taken to the recovery room in stable condition. [id number]/[facility] #: [id number] JOSE
[2017-09-20 05:36] LABS: EGFR Non-African American 132.2 (>60)
--- NOTE | 2017-09-20 08:52 | PN ---
Progress Note - Progress Note Date of Service: 09/20/17 SOAP: Subjective: Doing well overnight, passing some flatus Required some narcotic in addition to toradol for pain Tolerating liquids without N/V Objective: Temp Pulse Resp BP Pulse Ox 97.8 F 70 16 96/57 98 09/20/17 07:23 09/20/17 07:23 09/20/17 07:23 09/20/17 07:23 09/20/17 07:23 Intake & Output 09/18/17 09/19/17 09/20/17 09/21/17 06:59 06:59 06:59 06:59 Intake Total 4487 Output Total 725 Balance 3762 Weight 144 lb Intake: IV Fluids 2987 NS (0.9%) 987 lr 2000 Oral 1000 Plasma Expanders Amount 500 Output: Urine 725 Other: # Bowel Movements 0 PEX: Comfortable Lungs are clear Abd is soft and slightly distended. Bowel sounds are present, slighty high pitched Ostomy site RLQ is clean, outer dressing changed. Packing in place, not changed. Clean without odor. Ext without odor Laboratory Results - last 24 hr 09/20/17 09/20/17 04:58 04:58 WBC 6.4 RBC 3.91 L Hgb 11.2 L Hct 32 L MCV 83 MCH 29 MCHC 35 RDW 14 Plt Count 200 MPV 8.5 Neut % (Auto) 78.9 Lymph % (Auto) 13.7 L Gentry % (Auto) 6.8 Eos % (Auto) 0.1 Baso % (Auto) 0.5 Absolute Neuts (auto) 5.1 Absolute Lymphs (auto) 0.9 L Absolute Monos (auto) 0.4 Absolute Eos (auto) 0 Absolute Basos (auto) 0 Absolute Nucleated RBC 0 Nucleated RBC % 0 Sodium 134 L Potassium 3.7 Chloride 108 Carbon Dioxide 23 Anion Gap 3 BUN 8 Creatinine 0.51 Est GFR ( Amer) 170.1 Est GFR (Non-Af Amer) 132.2 BUN/Creatinine Ratio 15.7 Glucose 81 Calcium 7.5 L Assessment: POD#1 Ileostomy reversal Plan: Full liquids D/C IVF when taking po Increase activity Wound care/VN for discharge Sub q heparin.
[2017-09-20] MEDS: Heparin VIAL(*) 5000 UNITS/ML VIAL (FIVE THOUSAND) SUBCUT SCH ×2 (09:51→14:22)
[2017-09-20 11:45] LABS: INR 1.06 (0.77-1.02)
[2017-09-21] MEDS: Heparin VIAL(*) 5000 UNITS/ML VIAL (FIVE THOUSAND) SUBCUT SCH ×4 (00:03→20:45)
[2017-09-21] MEDS: oxyCODONE/Acetamin 5/325 MG* TAB PO PRN ×5 (00:04→20:45)
[2017-09-21] MEDS: Ketorolac INJ* 30 MG/ML 1 ML VIAL IV SCH ×2 (02:53→07:10)
[2017-09-21] MEDS: HYDROmorphone INJ* 2 MG/ML CARPUJECT SYRINGE IV PRN (13:43)
--- NOTE | 2017-09-21 13:48 | PN ---
Progress Note - Progress Note Date of Service: 09/21/17 SOAP: Subjective: Doing well-passing some flatus and tolerating po, no BM Pain controlled with toradol and percocet Ambulating in the halls Objective: Temp Pulse Resp BP Pulse Ox 98.6 F 53 18 99/50 100 09/21/17 11:17 09/21/17 11:17 09/21/17 13:43 09/21/17 11:17 09/21/17 11:17 Intake & Output 09/19/17 09/20/17 09/21/17 09/22/17 06:59 06:59 06:59 06:59 Intake Total 4487 2759 240 Output Total 725 4325 1025 Balance 6922 -2386 -290 Weight 144 lb Intake: IV Fluids 2987 1569 NS (0.9%) 987 1569 lr 2000 Oral 1000 1190 240 Plasma Expanders Amount 500 Output: Urine 725 4325 1025 Other: # Bowel Movements 0 # Voids 1 1 PEX: Comfortable Lungs are clear Abd is soft and slightly distended. Ostomy site is clean and pink, packing changed. Bowel sounds are hyperactive, slightly high pitched. Ext without edema Assessment: POD# 2 s/p ileostomy reversal Ileus Plan: Advance diet, d/c IVF Increase activity Wound care Plan D/C tomorrow--she would like to have BM before going home and would like to wait until tomorrow for discharge. VN arranged for home care.
[2017-09-22] MEDS: oxyCODONE/Acetamin 5/325 MG* TAB PO PRN ×2 (02:38→10:23)
[2017-09-22] MEDS: Heparin VIAL(*) 5000 UNITS/ML VIAL (FIVE THOUSAND) SUBCUT SCH (05:31)
[2017-09-22 08:01] VITALS: BP 91/56
--- NOTE | 2017-09-22 10:27 | PN ---
Progress Note - Progress Note Date of Service: 09/22/17 Note: S: POD #3. Doing well overall. Some pain. Raúl diet. Passing flatus; no BM. Seen earlier w/ Dr. Floyd. O: Vital Signs - 8 hr 09/22/17 09/22/17 09/22/17 02:38 03:27 04:04 Temperature 98.6 F Pulse Rate 65 Respiratory 20 16 16 Rate Blood Pressure 99/56 (mmHg) O2 Sat by Pulse 95 Oximetry 09/22/17 09/22/17 09/22/17 04:55 07:26 10:23 Temperature 98.2 F Pulse Rate 58 Respiratory 16 15 18 Rate Blood Pressure 91/56 (mmHg) O2 Sat by Pulse 96 Oximetry Intake and Output Last 24 Hours 09/20/17 09/21/17 09/22/17 09/23/17 06:59 06:59 06:59 06:59 Intake Total 4487 2759 630 Output Total 725 4325 2575 Balance 6590 -5873 -1323 Weight 144 lb Intake: IV Fluids 2987 1569 NS (0.9%) 987 1569 lr 2000 Oral 1000 1190 630 Plasma Expanders Amount 500 Output: Urine 725 4325 2575 Other: # Bowel Movements 0 # Voids 1 1 Gen: WN; NAD Abd: healing ostomy site: clean; serosang drainage; NS- moistened packing (4x4) replaced, which she tolerated well. observed. A: s/p ileostomy reversal, doing well. P: ok for d/c home today; packing changes at home by visiting nse/.
--- NOTE | 2017-09-22 13:32 | DS ---
CC: Dr. Hayden Fuentes at [facility] * DISCHARGE SUMMARY: DATE OF ADMISSION: 09/19/17 DATE OF DISCHARGE: 09/22/17 ATTENDING SURGEON: Maykel Floyd MD.* (DICTATED BY JUANPABLO ELLIOTT) HOSPITAL COURSE: Please refer to admission history and physical and operative note for details. The patient was taken to the operating room on 09/19/17 at which time she underwent ileostomy closure. Surgery was uneventful and she has progressed in terms of pain control and oral intake. As of the morning of discharge, she is tolerating diet well and passing flatus. She has not yet had a bowel movement. Her pain has been well controlled with oral medications. For exam, the patient was seen earlier with Dr. Floyd. Abdomen is soft with positive bowel sounds. There is mild tenderness in the periwound area as expected. Upon removal of the packing, the wound is clean without any evidence of infection. Saline moistened, 4x4 packing was replaced and dry sterile dressing placed. She tolerated procedure well. Her did observe most of it, but then did have to sit down. IMPRESSION: Status post ileostomy closure. PLAN: Home today. She will continue packing changes on a daily to every other day basis, but I will have the home nurse downsize to 0.5 inch packing strip for the wound. She has a followup with our office on Tuesday09/27/[address] Floyd. Prescription was already sent for Percocet to her pharmacy (I-STOP checked). JUANPABLO ELLIOTT [id number]/[facility] #: [id number] MTDD
== END 2017-09-22 11:35 | disposition home health service (06) | DRG 223 ==
LOC: AA 09:22 → SSU 15:29
PROVIDERS: ADMIT Surgery; ATTEND Surgery
PROC: 0DBB0ZZ Excision of Ileum, Open Approach (ICD-10-PCS; principal; 2017-09-19 10:45)
DX: Z43.2 Encounter for attention to ileostomy (principal); K56.7 Ileus, unspecified; E03.9 Hypothyroidism, unspecified; K21.9 Gastro-esophageal reflux disease without esophagitis; M41.9 Scoliosis, unspecified; F41.9 Anxiety disorder, unspecified; Z88.8 Allergy status to other drugs, medicaments and biological substances; Z90.49 Acquired absence of other specified parts of digestive tract
CPT/HCPCS: 36415; 80048; 81025; 85025; 85610; 88304; A9270-GY; C1776; J0690; J1100; J1170; J1240; J1644; J1885; J2250; J2405; J2704; J3010

== ENCOUNTER 2018-05-12 07:09 | Emergency (ER) | payer BC ==
[2018-05-12 07:25] VITALS: BP 129/76
--- NOTE | 2018-05-12 08:18 | UC ---
Throat Pain/Nasal Morgan HPI - HPI Summary HPI Summary: ONSET 2 DAYS AGO OF FATIGUE, SORE THROAT AND OVERALL MALAISE. YESTERDAY FELT WORSE WITH SWEATS, CHILLS, BODY ACHES AND HEADACHE. HAS PAIN WITH SWALLOWING. NO COUGH. - History of Current Complaint Chief Complaint: UCGeneralIllness Stated Complaint: BODY ACHES, SORE THROAT Time Seen by Provider: 05/12/18 07:19 Hx Obtained From: Patient Hx Last Menstrual Period: 04/29/18 Onset/Duration: Gradual Onset, Lasting Days, Still Present Severity: Moderate Pain Intensity: 7 Pain Scale Used: 0-10 Numeric Cough: None Associated Signs & Symptoms: Positive: Hoarseness, Nasal Discharge, Fever - Allergies/Home Medications Allergies/Adverse Reactions: Allergies Allergy/AdvReac Type Severity Reaction Status Date / Time magnesium Allergy Intermediate Hives Verified 05/12/18 07:20 Home Medications: Home Medications Acetaminophen TAB* [Tylenol TAB*] 325 mg PO Q4H PRN 05/12/18 [History Confirmed 05/12/18] Calcium Polycarbophil TAB* [Fibercon TAB*] 625 mg PO BID 05/12/18 [History Confirmed 05/12/18] Ibuprofen TAB* [Advil TAB*] 200 mg PO Q6H PRN 05/12/18 [History Confirmed ] PMH/Surg Hx/FS Hx/Imm Hx Previously Healthy: Yes Other History Of: Negative For: Anticoagulant Therapy - Surgical History Surgical History: Yes Surgery Procedure, Year, and Place: 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 appy jan 2016, colon resection 2017 for abcess, ileostomy reversal - Family History Known Family History: Positive: Hypertension - father, Diabetes, Other - Epilepsy (sister) Negative: Cardiac Disease - Social History Alcohol Use: Rare Substance Use Type: None Smoking Status (MU): Never Smoked Tobacco Have You Smoked in the Last Year: No - Immunization History Most Recent Influenza Vaccination: 2017 Most Recent Tetanus Shot: 2007 Most Recent Pneumonia Vaccination: n/a Review of Systems All Other Systems Reviewed And Are Negative: Yes Constitutional: Positive: Fever, Chills, Fatigue ENT: Positive: Sore Throat, Nasal Discharge Respiratory: Positive: Negative Cardiovascular: Positive: Negative Gastrointestinal: Positive: Negative Musculoskeletal: Positive: Myalgia Neurological: Positive: Headache Physical Exam Triage Information Reviewed: Yes Appearance: No Pain Distress, Well-Nourished, Ill-Appearing - MILD Vital Signs: Initial Vital Signs Temp 99.4 F 05/12/18 07:13 Pulse 115 05/12/18 07:13 Resp 16 05/12/18 07:13 BP 129/76 05/12/18 07:13 Pulse Ox 99 05/12/18 07:13 Laboratory Tests 05/12/18 05/12/18 07:31 07:33 Influenza A (Rapid) Negative Influenza B (Rapid) Negative Group A Strep Rapid Positive A Vital Signs Reviewed: Yes Eyes: Positive: Conjunctiva Clear ENT: Positive: Hearing grossly normal, Pharyngeal erythema, TMs normal. Negative: Tonsillar swelling, Tonsillar exudate Neck: Positive: Supple, Nontender, No Lymphadenopathy Respiratory Exam: Normal Cardiovascular Exam: Normal Abdomen Description: Positive: Soft Musculoskeletal: Positive: No Edema Neurological: Positive: Alert Psychological: Positive: Age Appropriate Behavior Skin: Negative: Rashes Throat Pain/Nasal Course/Dx - Differential Dx/Diagnosis Provider Diagnosis: Strep pharyngitis Discharge - Sign-Out/Discharge Documenting (check all that apply): Patient Departure All imaging exams completed and their final reports reviewed: No Studies - Discharge Plan Condition: Stable Disposition: HOME Prescriptions: Amoxicillin PO (*) [Amoxicillin 500 MG CAP*] 1,000 mg PO DAILY #20 cap Fluconazole [Diflucan] 1 tab PO ONCE #2 tab Patient Education Materials: Strep Throat (ED) Forms: *Work Release Referrals: Hayden Fuentes DO [Primary Care Provider] - If Needed Additional Instructions: STREP POSITIVE. TAKE ANTIBIOTICS FOR THE FULL 10 DAYS. OTC CHLORASEPTIC OR CEPACOL LOZENGES AND/OR IBUPROFEN FOR SORE THROAT NEEDED ONCE SYMPTOMS RESOLVED - NEW TOOTHBRUSH DO NOT SHARE FOOD, DRINK, UTENSILS FLU SWAB NEGATIVE - Billing Disposition and Condition Condition: STABLE Disposition: Home
== END 2018-05-12 08:00 | disposition home or self-care (01) ==
LOC: UCEAST 07:09
DX: J02.0 Streptococcal pharyngitis (principal); B95.0 Streptococcus, group A, as the cause of diseases classified elsewhere; Z88.8 Allergy status to other drugs, medicaments and biological substances
CPT/HCPCS: 87651; 99212; G0463

== ENCOUNTER 2018-08-03 08:55 | Emergency (ER) | payer BC ==
[2018-08-03 09:58] VITALS: BP 110/70
--- NOTE | 2018-08-03 10:06 | UC ---
Eye Complaint HPI - HPI Summary HPI Summary: 42 y/o female presents to the urgent care c/o left eye red w/ yellowish drainage for thepast 2 days. Pt reports this morning she woke up w/ her eye closed and yellowish crusting. Pt denies eye pain, but feel irritation. Pt denies fever, visual disturbances, HINKLE, SOB, URI, chest pain, abdominal pain, N/v /d. She has not wear her contact lenses for the past month. - History of Current Complaint Chief Complaint: UCEye Stated Complaint: EYE ISSUE Time Seen by Provider: 08/03/18 10:04 Hx Obtained From: Patient Hx Last Menstrual Period: 07/21/18 Onset/Duration: Gradual Onset, Lasting Days - 2 days, Still Present, Worse Since - today w/ yellowish crusting Timing: Constant Severity Initially: Mild Severity Currently: Moderate Pain Intensity: 3 Pain Scale Used: 0-10 Numeric Location of Injury: Conjunctiva - left Character: Foreign Body Sensation Aggravating Factor(s): Blinking Alleviating Factor(s): Nothing Associated Signs And Symptoms: Positive: Drainage (Purulent). 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 appy jan 2016, colon resection 2018 for abcess, ileostomy reversal - Family History Known Family History: Positive: Hypertension - father, Diabetes, Other - Epilepsy (sister) Negative: Cardiac Disease - Social History Occupation: Employed Full-time Lives: With Family Alcohol Use: Rare Substance Use Type: None Smoking Status (MU): Never Smoked Tobacco Have You Smoked in the Last Year: No - Immunization History Most Recent Influenza Vaccination: 2017 Most Recent Tetanus Shot: 2007 Most Recent Pneumonia Vaccination: n/a Review of Systems All Other Systems Reviewed And Are Negative: Yes Constitutional: Positive: Negative Skin: Positive: Negative Eyes: Positive: Drainage - yellowish, Eye Redness - left eye. Negative: Blurred Vision, Photophobia ENT: Positive: Nasal Discharge - clear Respiratory: Positive: Negative Cardiovascular: Positive: Negative Gastrointestinal: Positive: Negative Genitourinary: Positive: Negative Motor: Positive: Negative Neurovascular: Positive: Negative Musculoskeletal: Positive: Negative Neurological: Positive: Negative Psychological: Positive: Negative Is Patient Immunocompromised?: No Physical Exam - Summary Physical Exam Summary: Vital Signs Reviewed: Yes General: Well appearing, well nourished female in no apparent pain distress Eyes: Positive: Left conjunctiva injected w. erythema - Visual acuity: WNL, Visual bronson: full to confrontation. PERRLA, EOMI intact w/out limitation or complaint of pain. left eyelashes w/ yellowish crusting and left eye w/ yellowish drainage observed. No ciliary flush. No chemosis, No photophobia. Normal fundoscopic exam; no proptosis, exophthalmos, nystagmus. ENT: Positive: Normal ENT inspection, Hearing grossly normal, Pharynx normal, Nasal congestion, Nasal drainage - clear, TMs normal - B/L external ear canal clear , TM's WNL. Negative: Tonsillar swelling, Tonsillar exudate Neck: Positive: Supple, Nontender, No Lymphadenopathy Respiratory: Positive: Chest nontender, Lungs clear, Normal breath sounds, No respiratory distress Cardiovascular: Positive: RRR, No Murmur, Pulses Normal, Brisk Capillary Refill Abdomen Description: Positive: Nontender, No Organomegaly, Soft. Negative: CVA Tenderness (R), CVA Tenderness (L) Bowel Sounds: Positive: Present Musculoskeletal: Positive: Strength Intact, ROM Intact, No Edema Neurological Exam: Normal Psychological Exam: Normal Skin Exam: Normal Triage Information Reviewed: Yes Vital Signs: Initial Vital Signs Temp 97.9 F 08/03/18 09:54 Pulse 89 08/03/18 09:54 Resp 16 08/03/18 09:54 BP 110/70 08/03/18 09:54 Pulse Ox 96 08/03/18 09:54 Eye Complaint Course/Dx - Course Course Of Treatment: 42 y/o female presents to the urgent care c/o left eye red w/ yellowish drainage for the past 2 days. Pt reports this morning she woke up w/ her eye closed and yellowish crusting. Pt denies eye pain, but feel irritation. Pt denies fever, visual disturbances, HINKLE, SOB, URI, chest pain, abdominal pain, N/v /d. She has not wear her contact lenses for the past month. Pt w/ left eye bacterial conjunctivitis and URI on examination. Pt Rx Polytrim PO ophthalmic drops for her bacterial conjunctivitis.PT advised to encourage hand washing to avoid spread and if symptoms do not improve, advised to f/u with PCP or Outpatient Services Director DR Granados for further evaluation and treatment. d/c instructions explained.PT understood and agreed w/ plan of care. - Differential Dx/Diagnosis Differential Diagnosis/HQI/PQRI: Conjunctivitis, Foreign Body, Periorbital Cellulitis, Orbital Cellulitis, Uveitis Provider Diagnosis: Bacterial conjunctivitis of left eye Discharge - Sign-Out/Discharge Documenting (check all that apply): Patient Departure - D/C home All imaging exams completed and their final reports reviewed: No Studies - Discharge Plan Condition: Stable Disposition: HOME Prescriptions: Polymyx/Trimethoprim OPTH* [Polytrim OPHTH*] 1 drop LEFT EYE Q3H #1 btl Patient Education Materials: Conjunctivitis (ED) Forms: *Work Release Referrals: Hayden Fuentes DO [Primary Care Provider] - 3 Days Korey Granados MD [Medical Doctor] - If Needed Additional Instructions: 1-Please apply ophthalmic drops as instructed and finish the full course of treatment to avoid recurrent infection. Encourage hand washing to avoid spread 2-If you do not improve or if symptoms worsen please f/u with spray cementer DR Granados or your PCP for further evaluation and treatment - Billing Disposition and Condition Condition: STABLE Disposition: Home
== END 2018-08-03 10:23 | disposition home or self-care (01) ==
LOC: UCEAST 08:55
DX: H10.89 Other conjunctivitis (principal); B96.89 Other specified bacterial agents as the cause of diseases classified elsewhere; Z88.8 Allergy status to other drugs, medicaments and biological substances
CPT/HCPCS: 99212; G0463

== ENCOUNTER → 2018-09-11 05:36 | Day surgery (SDC) | payer BC ==
[~2018-09-11 05:36] MED LIST changes: +Acetaminophen TAB* 325 MG ONE; +Acetaminophen TAB* 325 MG PO ONE; -Buffered Lidocaine 0.9% SYRIN* 5 ML/SYR SYRINGE INTRADERM ONE; +Buffered Lidocaine 1% SYRIN* 1 ML/SYRINGE INTRADERM ONE; +Bupivacaine 0.25% SDV PF* 10 ML VIAL INJ ONE; +Bupivacaine 0.5% W/EPI SDV* 30 ML VIAL ONE; +Dexamethasone IV* 4 MG/ML 1 ML (4 MG) ONE; +DiMENhydriNATE IV* 50 MG/ML VIAL IV PUSH PRN; +DiMENhydriNATE IV* 50 MG/ML VIAL ONE; +Famotidine IV* 10 MG/ML 2 ML (20 mg) ONE; +Gabapentin CAP(*) 300 MG ONE; +Gabapentin CAP(*) 300 MG PO ONE; +HYDROcodone/ACETAMIN 5-325 MG* 1 TAB ONE; +HYDROcodone/ACETAMIN 5-325 MG* 1 TAB PO PRN; +Ketorolac INJ* 30 MG/ML 1 ML VIAL ONE; +Lactated Ringers 1000 ML Bag* 1,000 ML IV SCH; +Lidocaine 1% INJ* 10 MG/ML 30 ML SDV ONE; +Lidocaine 2% PF * 5 ML VIAL ONE; +Midazolam* 1 MG/ML 2 ML VIAL (2 MG) ONE; +Naloxone* 0.4 MG/ML 1 ML VIAL IV PRN; +Ondansetron INJ* 2 MG/ML VIAL IV PRN; +Ondansetron INJ* 2 MG/ML VIAL ONE; +PROCHLORPERAZINE INJ 5 MG/ML 2 ML VIAL IV PRN; +Propofol* 10 MG/ML 20 ML BTL ONE; +ceFAZolin 2 GM PREMIX in ORs 2 GM/50 ML BAG IVPB ONE; +diPHENhydraMINE IV* 50 MG/ML 1 ml VIAL (BENADRYL) IV PRN; +fentaNYL* 50 MCG/ML 2 ML VIAL (100 MCG VIAL) IV PRN; +fentaNYL* 50 MCG/ML 2 ML VIAL (100 MCG VIAL) ONE
[2018-09-11 13:52] VITALS: BP 95/57
--- NOTE | 2018-09-12 07:34 | OP ---
DATE OF OPERATION: 09/11/18 [facility] DATE OF : 73 SURGEON: Maykel Floyd MD. ABRASIVE BAND WINDER: JUANPABLO Lee. ANESTHESIOLOGIST: Dr. Grissom. ANESTHESIA: General with local. PRE-OP DIAGNOSIS: Ventral incisional hernia at the site of previous loop ileostomy. POST-OP DIAGNOSIS: Ventral incisional hernia at the site of previous loop ileostomy. OPERATIVE PROCEDURE: Open repair with mesh of a ventral incisional hernia at the site of previous loop ileostomy. ESTIMATED BLOOD LOSS: Minimal. IV FLUIDS: 1 liter crystalloid. SPECIMEN: None. COMPLICATIONS: None. DRAINS: None. WOUND CLASSIFICATION: I. DESCRIPTION OF PROCEDURE: Written informed consent was obtained, the abdomen was marked with indelible ink, and preoperative antibiotics were administered. The patient was taken to the operating room and placed in the supine position. Sequential compression devices and a warming blanket were applied. General anesthesia was administered, and the abdomen was prepped and draped in the usual sterile fashion. Time-out verification was completed. Marcaine 0.25% mixed with 1% lidocaine was infiltrated over the transverse incision in the right lower quadrant over the palpable hernia. The previous scar was excised with an elliptical incision carried down to the subcutaneous tissue. Here, we identified a hernia sac extending out through the abdominal musculature and we freed this up and dissected the surrounding fascia. I did enter the peritoneal cavity as there was quite a bit of scarring and initially I had attempted to stay extraperitoneal, but this was not possible due to the scarring of the peritoneum up to the anterior abdominal wall from the previous surgery. The peritoneal cavity was then entered. There was omentum that was adherent to the anterior abdominal wall medially and these adhesions were taken down. There were very few adhesions from the bowel to the anterior abdominal wall and these were all taken down sharply under direct vision. I was able to easily free the underside surface of the fascial defect about 4 cm in each direction. The fascial defect was measured and it appeared to be approximately 3 to 3.5 cm in size. At this point, the decision was made to proceed with placement of a 8 cm [address] hernia patch to be placed intraabdominally. Four separate #1 Vicryl sutures were placed through the anterior abdominal wall in the 4 quadrants and placed through the mesh and the mesh was parachuted up into the peritoneal cavity and the horizontal mattress sutures of Vicryl were then used to pull the mesh up to the anterior abdominal wall and was secured. It should be noted that I had placed some omentum over the bowel between it and the mesh as well. The mesh sat nicely without evidence of tension and it had overlapped the hernia defect nicely. I then used the CapSure tacking device to tack the mesh up to the anterior abdominal wall circumferentially around the mesh itself. Once this was complete , the area was irrigated. The underlying muscle was then closed in a vertical orientation with interrupted #1 Vicryl suture. The anterior fascia of the abdominal wall was then closed in a transverse orientation with interrupted #1 Vicryl suture. The wound was irrigated. Subcutaneous tissue was closed with layers of 2-0 and 3-0 Vicryl suture. The skin was approximated with subcuticular 4-0 Vicryl suture. Steri-Strips and sterile dressings were applied. The patient tolerated the procedure well, was taken to recovery room in stable condition. [id number]/[facility] #: [id number] JOSE
--- NOTE | 2018-09-12 13:37 | BRIEFOPN ---
Brief Operative Note - Surgery Procedures: Procedures OPERATIVE REPORT 09/11/18 Pre-op: Ventral incisional hernia at site of previous loop ileostomy Post-Op: Same Procedure:Open repair with mesh of ventral incisional hernia Surgeon: MD Everett Asst: Boston Soni NP Anes: General with local, Dr. Grissom IVF:900 CC's crystalloid EBL:min Specimen: None Drain: none Wound: 1 To PACU
== END | disposition home or self-care (01) ==
LOC: OR 05:36
PROVIDERS: ATTEND Surgery
DX: K43.2 Incisional hernia without obstruction or gangrene (principal); F41.9 Anxiety disorder, unspecified
CPT/HCPCS: 81025; A9270-GY; C1781; J0690; J1100; J1240; J1885; J2250; J2405; J2704; J3010; J3490